=== PATIENT | female | born 1945 | race Caucasian/White ===

== ENCOUNTER 2020-08-29 13:12 | Emergency (ER) | payer MEDICARE, OTHER ==
[2020-08-29 15:11] VITALS: PULSE 80
--- NOTE | 2020-08-29 15:26 | EDM.PDOC ---
ED HPI GENERAL MEDICAL PROBLEM - General Chief Complaint: Cardiovascular Problem Stated Complaint: BLOOD PRESSURE ISSUES Time Seen by Provider: 08/29/20 15:05 Source of Information: Reports: Patient, Old Records History Limitations: Reports: No Limitations - History of Present Illness INITIAL COMMENTS - FREE TEXT/NARRATIVE: 75 yo female presents with light-headedness with standing for a couple days. Has noticed that her BP is sometimes good and sometimes high over this interval. No diarrhea, chest pain, vomiting, or fever. No recent med changes. She called the clinic today to get an appt and was told to go to the ER. No headache. Onset: Gradual Onset Date: 08/27/20 Duration: Day(s): (2), Waxing/Waning Location: Reports: Head Quality: Reports: Other (no pain) Severity: Moderate Improves with: Reports: None Worsens with: Reports: Other (? 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) - Related Data Allergies Allergy/AdvReac Type Severity Reaction Status Date / Time amoxicillin Allergy Cannot Verified 08/29/20 15:13 Remember diclofenac [From Voltaren] Allergy Hives Verified 08/29/20 15:13 lisinopril Allergy Hives Verified 08/29/20 15:13 metformin Allergy Diarrhea Verified 08/29/20 15:13 Home Meds: Home Meds Albuterol [Ventolin HFA] 2 puff INH Q4HR PRN 12/23/17 [History] Aspirin [Lui Chewable] 81 mg PO DAILY 12/23/17 [History] Levothyroxine 112 mcg PO DAILY 12/23/17 [History] Pioglitazone HCl 45 mg PO DAILY 12/23/17 [History] Simvastatin 20 mg PO BEDTIME 12/23/17 [History] SitaGLIPtin [Januvia] 100 mg PO DAILY 12/23/17 [History] diphenhydrAMINE HCL [Unisom] 50 mg PO BEDTIME PRN 12/23/17 [History] glipiZIDE [Glucotrol] 5 mg PO BID 12/23/17 [History] traZODone 50 mg PO BEDTIME 12/23/17 [History] ED ROS GENERAL - Review of Systems Review Of Systems: See Below Constitutional: Reports: No Symptoms HEENT: Reports: No Symptoms Respiratory: Reports: No Symptoms Cardiovascular: Reports: Lightheadedness. Denies: Chest Pain, Dyspnea on Exertion, Orthopnea, Palpitations Endocrine: Reports: No Symptoms GI/Abdominal: Reports: No Symptoms : Reports: No Symptoms Musculoskeletal: Reports: No Symptoms Skin: Reports: No Symptoms Neurological: Reports: No Symptoms ED EXAM, GENERAL - Physical Exam Exam: See Below Exam Limited By: No Limitations General Appearance: Alert, WD/WN, No Apparent Distress Eye Exam: Bilateral Eye: Normal Inspection Ears: Normal External Exam, Normal Canal, Hearing Grossly Normal, Normal TMs Ear Exam: Bilateral Ear: Auricle Normal, Canal Normal, TM normal Nose: Normal Inspection, No Blood Throat/Mouth: Normal Inspection, Normal Lips, Normal Oropharynx, Normal Voice, No Airway Compromise Head: Atraumatic, Normocephalic Neck: Normal Inspection, Non-Tender Respiratory/Chest: No Respiratory Distress, Lungs Clear, Normal Breath Sounds, No Accessory Muscle Use Cardiovascular: Regular Rate, Rhythm, No Edema GI/Abdominal: Normal Bowel Sounds, Soft, Non-Tender, No Distention. No: Distended Back Exam: Normal Inspection. No: CVA Tenderness (R), CVA Tenderness (L) Extremities: Normal Inspection, Normal Range of Motion, Non-Tender, No Pedal Edema Neurological: Alert, Oriented, CN II-XII Intact, Normal Cognition, No Motor/Sensory Deficits Psychiatric: Normal Affect, Normal Mood Skin Exam: Warm, Dry, Intact, Normal Color, No Rash Course - Vital Signs Last Recorded V/S: Last Vital Signs Temp 35.9 C L 08/29/20 15:16 Pulse 80 08/29/20 15:16 Resp 16 08/29/20 15:16 BP 124/62 08/29/20 17:03 Pulse Ox 96 08/29/20 15:16 Orthostatic Blood Pressure [ 105/76 Standing] Orthostatic Blood Pressure [ 130/69 Sitting] Orthostatic Blood Pressure [ 169/76 Supine] - Orders/Labs/Meds Orders: Active Orders 24 hr Category Date Time Status Orthostatic Vital Signs [RC] ASDIRECTED Care 08/29/20 15:21 Active CULTURE URINE [RM] Stat Lab 08/29/20 16:58 Received Labs: Laboratory Tests 08/29/20 08/29/20 Range/Units 15:36 16:33 Sodium 143 (140-148) mmol/L Potassium 4.4 (3.6-5.2) mmol/L Chloride 105 (100-108) mmol/L Carbon Dioxide 27 (21-32) mmol/L Anion Gap 10.6 (5.0-14.0) mmol/L BUN 26 H (7-18) mg/dL Creatinine 1.3 H (0.6-1.0) mg/dL Est Cr Clr Drug Dosing 33.13 mL/min Estimated GFR (MDRD) 40 L (>60) Glucose 165 H (74-106) mg/dL Calcium 10.3 H (8.5-10.1) mg/dL TSH, Ultra Sensitive 1.959 (0.358-3.740) uIU/mL Urine Color Yellow (YELLOW) Urine Appearance Clear (CLEAR) Urine pH 5.5 (5.0-8.0) Ur Specific [place] 1.025 (1.008-1.030) Urine Protein Negative (NEGATIVE) mg/dL Urine Glucose (UA) Negative (NEGATIVE) mg/dL Urine Ketones Negative (NEGATIVE) mg/dL Urine Occult Blood Trace-lysed H (NEGATIVE) Urine Nitrite Positive H (NEGATIVE) Urine Bilirubin Negative (NEGATIVE) Urine Urobilinogen 0.2 (0.2-1.0) EU/dL Ur Leukocyte Esterase Small H (NEGATIVE) Urine RBC 5-10 H (0-5) Urine WBC Semi-packed H (0-5) Ur Epithelial Cells Few Amorphous Sediment Not seen Urine Bacteria Many Urine Mucus Not seen Meds: Medications Discontinued Medications Generic Name Dose Route Start Last Admin Trade Name Dangelo PRN Reason Stop Dose Admin Cephalexin 500 mg 08/29/20 16:57 08/29/20 17:01 Cephalexin 250 Mg Cap PO 08/29/20 16:58 500 mg ONETIME ONE Administration Departure - Departure Time of Disposition: 17:25 Disposition: Home, Self-Care 01 Condition: Fair Clinical Impression: Labile blood pressure UTI (urinary tract infection) Qualifiers: Urinary tract infection type: acute cystitis Hematuria presence: without hematuria Qualified Code(s): N30.00 - Acute cystitis without hematuria Instructions: Urinary Tract Infection, Adult, [id number] Referrals: Greg Cabrera MD [Primary Care Provider] - Forms: ED Department Discharge Additional Instructions: Drink enough fluids so that your urine is light yellow in color. Take cephalexin 500 mg every 8 hrs until gone. Recheck in 3 days in the clinic to make sure you are improving and to discuss your BP situation. Sepsis Event Note (ED) - Evaluation Sepsis Screening Result: No Definite Risk - Focused Exam Vital Signs: Vital Signs Temp Pulse Resp BP Pulse Ox 08/29/20 17:03 124/62 08/29/20 15:16 35.9 C L 80 16 145/69 H 96 08/29/20 15:09 35.9 C L 80 16 145/69 H 96 - My Orders Last 24 Hours: My Active Orders 08/29/20 15:21 Orthostatic Vital Signs [RC] ASDIRECTED 08/29/20 16:58 CULTURE URINE [RM] Stat - Assessment/Plan Last 24 Hours: My Active Orders 08/29/20 15:21 Orthostatic Vital Signs [RC] ASDIRECTED 08/29/20 16:58 CULTURE URINE [RM] Stat
[2020-08-29] MEDS ORDERED: Cephalexin 250 MG Cap PO ONE (16:57)
[2020-08-29 17:03] VITALS: BP 124/62
== END 2020-08-29 17:29 | disposition home or self-care (01) ==
LOC: JP.ED 13:12
DX: R09.89 Other specified symptoms and signs involving the circulatory and respiratory systems (principal); N30.00 Acute cystitis without hematuria; Z88.0 Allergy status to penicillin; Z88.6 Allergy status to analgesic agent; Z88.8 Allergy status to other drugs, medicaments and biological substances; Z79.82 Long term (current) use of aspirin; Z79.899 Other long term (current) drug therapy
CPT/HCPCS: 36415; 80048; 81001; 84443; 87086; 87088; 87186; 99284; A9270; 99283

== ENCOUNTER 2020-10-22 15:37 | Emergency (ER) | payer MEDICARE, OTHER ==
--- NOTE | 2020-10-22 20:04 | EDM.PDOC ---
ED HPI GENERAL MEDICAL PROBLEM - General Chief Complaint: Abdominal Pain Stated Complaint: PAIN FROM HIP TO ABDOMEN-HAVENT ATE SINCE FRI Time Seen by Provider: 10/22/20 19:45 Source of Information: Reports: Patient, Family History Limitations: Reports: No Limitations - History of Present Illness INITIAL COMMENTS - FREE TEXT/NARRATIVE: 75-year-old female with abdominal pain for the past 3 days, especially the right upper quadrant. Malaise and nausea, no significant emesis. She has not eaten much for the last 3 days because it makes things worse, no fevers or chills. No history of abdominal surgeries in the past. She did have a fall 2 nights ago where she hit the left side of her abdomen but she was already having the symptoms and did not think she hurt herself when she fell. No diarrhea, denies constipation. No chest symptoms such as shortness of breath or chest pain, no palpitations. Onset: Gradual Duration: Day(s): (4 days) Location: Reports: Abdomen (Right upper quadrant) Worsens with: Reports: Eating Associated Symptoms: Reports: Loss of Appetite, Malaise, Nausea/Vomiting. Denies: Chest Pain, Cough, Fever/Chills, Headaches, Shortness of Breath Right Abdomen Pain Score (Numeric/FACES): 7 - Related Data Allergies Allergy/AdvReac Type Severity Reaction Status Date / Time amoxicillin Allergy Cannot Verified 10/22/20 19:33 Remember diclofenac [From Voltaren] Allergy Hives Verified 10/22/20 19:33 lisinopril Allergy Hives Verified 10/22/20 19:33 metformin Allergy Diarrhea Verified 10/22/20 19:33 Home Meds: Home Meds Albuterol [Ventolin HFA] 2 puff INH Q4HR PRN 12/23/17 [History] Aspirin [Lui Chewable] 81 mg PO DAILY 12/23/17 [History] Levothyroxine 112 mcg PO DAILY 12/23/17 [History] Pioglitazone HCl 45 mg PO DAILY 12/23/17 [History] Simvastatin 20 mg PO BEDTIME 12/23/17 [History] SitaGLIPtin [Januvia] 100 mg PO DAILY 12/23/17 [History] diphenhydrAMINE HCL [Unisom] 50 mg PO BEDTIME PRN 12/23/17 [History] glipiZIDE [Glucotrol] 5 mg PO BID 12/23/17 [History] traZODone 50 mg PO BEDTIME 12/23/17 [History] cephALEXin [Cephalexin] 500 mg PO Q8H #14 capsule 08/29/20 [Rx] Past Medical History HEENT History: Reports: Cataract, Impaired Vision Cardiovascular History: Reports: High Cholesterol, Hypertension Respiratory History: Reports: Asthma [employer]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: Musculoskeletal History: Reports: Arthritis Endocrine/Metabolic History: Reports: Hypothyroidism, Obesity/BMI 30+ - Past Surgical History HEENT Surgical History: Reports: None Cardiovascular Surgical History: Reports: None Respiratory Surgical History: Reports: None Endocrine Surgical History: Reports: None Musculoskeletal Surgical History: Reports: None Dermatological Surgical History: Reports: None Social & Family History - Tobacco Use Tobacco Use Status *Q: Never Tobacco User - Caffeine Use Caffeine Use: Reports: Soda - Recreational Drug Use Recreational Drug Use: No ED ROS GENERAL - Review of Systems Review Of Systems: See Below Constitutional: Reports: Malaise, Decreased Appetite. Denies: Fever, Chills HEENT: Reports: No Symptoms Respiratory: Denies: Shortness of Breath, Cough Cardiovascular: Denies: Chest Pain, Palpitations GI/Abdominal: Reports: Abdominal Pain, Diarrhea (Patient has had two or 3 days of watery diarrhea), Decreased Appetite, Nausea, Vomiting. Denies: Constipation, Distension, Hematemesis, Hematochezia : Reports: No Symptoms Musculoskeletal: Reports: Back Pain (Chronic back pain) Skin: Reports: No Symptoms Neurological: Reports: No Symptoms Psychiatric: Reports: No Symptoms ED EXAM, GI/ABD - Physical Exam Exam: See Below Exam Limited By: No Limitations General Appearance: Alert, No Apparent Distress Eyes: Bilateral: Normal Appearance (No jaundice, good hydration) Head: Atraumatic Respiratory/Chest: No Respiratory Distress, Lungs Clear Cardiovascular: Regular Rate, Rhythm. No: Tachycardia GI/Abdominal Exam: Normal Bowel Sounds, Tender (Fairly tender across the upper abdomen, especially the right side) Extremities: Normal Inspection Neurological: Alert, Oriented Skin Exam: Warm, Dry Course - Vital Signs Last Recorded V/S: Last Vital Signs Temp 97.7 F 10/22/20 19:36 Pulse 57 L 10/22/20 22:14 Resp 26 H 10/22/20 19:36 BP 182/61 H 10/22/20 22:14 Pulse Ox 93 L 10/22/20 22:14 - Orders/Labs/Meds Orders: Active Orders 24 hr Category Date Time Status Ang Chest [CT] Stat Exams 10/22/20 21:54 Taken BABESIA MICROTI ANTIBODY PANEL Urgent Lab 10/22/20 23:36 Received HUMAN GRANULOCYTIC SUMIT-HGE Urgent Lab 10/22/20 23:36 Received LYME, TOTAL AB TEST/REFLEX Urgent Lab 10/22/20 23:36 Received Labs: Laboratory Tests 10/22/20 10/22/20 10/22/20 Range/Units 20:15 20:15 20:15 WBC 1.9 L (4.5-11.0) K/uL RBC 5.37 (3.30-5.50) M/uL Hgb 15.1 H (12.0-15.0) g/dL Hct 46.2 (36.0-48.0) % MCV 86 (80-98) fL MCH 28 (27-31) pg MCHC 33 (32-36) % Plt Count 80 L (150-400) K/uL Add Manual Diff Yes Neutrophils % (Manual) 52 (36-66) % Band Neutrophils % 13 H (5-11) % Lymphocytes % (Manual) 26 (24-44) % Monocytes % (Manual) 9 H (2-6) % Atypical Lymphocytes Few Polychromasia Sodium 134 L (140-148) mmol/L Potassium 3.9 (3.6-5.2) mmol/L Chloride 95 L (100-108) mmol/L Carbon Dioxide 26 (21-32) mmol/L Anion Gap 16.9 H (5.0-14.0) mmol/L BUN 24 H (7-18) mg/dL Creatinine 1.3 H (0.6-1.0) mg/dL Est Cr Clr Drug Dosing 33.13 mL/min Estimated GFR (MDRD) 40 L (>60) Glucose 229 H (74-106) mg/dL Lactic Acid 1.5 (0.4-2.0) mmol/L Calcium 8.7 D (8.5-10.1) mg/dL Total Bilirubin 0.9 (0.2-1.0) mg/dL AST 50 H (15-37) U/L ALT 44 (12-78) U/L Alkaline Phosphatase 64 (46-116) U/L Total Protein 6.6 (6.4-8.2) g/dL Albumin 3.1 L (3.4-5.0) g/dL Globulin 3.5 (2.3-3.5) g/dL Albumin/Globulin Ratio 0.9 L (1.2-2.2) Lipase 55 L (73-393) U/L Urine Color (YELLOW) Urine Appearance (CLEAR) Urine pH (5.0-8.0) Ur Specific [place] (1.008-1.030) Urine Protein (NEGATIVE) mg/dL Urine Glucose (UA) (NEGATIVE) mg/dL Urine Ketones (NEGATIVE) mg/dL Urine Occult Blood (NEGATIVE) Urine Nitrite (NEGATIVE) Urine Bilirubin (NEGATIVE) Urine Urobilinogen (0.2-1.0) EU/dL Ur Leukocyte Esterase (NEGATIVE) Urine RBC (0-5) Urine WBC (0-5) Ur Epithelial Cells Amorphous Sediment Urine Bacteria Urine Mucus Urine Other 10/22/20 Range/Units 21:25 WBC (4.5-11.0) K/uL RBC (3.30-5.50) M/uL Hgb (12.0-15.0) g/dL Hct (36.0-48.0) % MCV (80-98) fL MCH (27-31) pg MCHC (32-36) % Plt Count (150-400) K/uL Add Manual Diff Neutrophils % (Manual) (36-66) % Band Neutrophils % (5-11) % Lymphocytes % (Manual) (24-44) % Monocytes % (Manual) (2-6) % Atypical Lymphocytes Polychromasia Sodium (140-148) mmol/L Potassium (3.6-5.2) mmol/L Chloride (100-108) mmol/L Carbon Dioxide (21-32) mmol/L Anion Gap (5.0-14.0) mmol/L BUN (7-18) mg/dL Creatinine (0.6-1.0) mg/dL Est Cr Clr Drug Dosing mL/min Estimated GFR (MDRD) (>60) Glucose (74-106) mg/dL Lactic Acid (0.4-2.0) mmol/L Calcium (8.5-10.1) mg/dL Total Bilirubin (0.2-1.0) mg/dL AST (15-37) U/L ALT (12-78) U/L Alkaline Phosphatase (46-116) U/L Total Protein (6.4-8.2) g/dL Albumin (3.4-5.0) g/dL Globulin (2.3-3.5) g/dL Albumin/Globulin Ratio (1.2-2.2) Lipase (73-393) U/L Urine Color Yellow (YELLOW) Urine Appearance Cloudy A (CLEAR) Urine pH 5.5 (5.0-8.0) Ur Specific [place] >= 1.030 (1.008-1.030) Urine Protein 100 H (NEGATIVE) mg/dL Urine Glucose (UA) 250 H (NEGATIVE) mg/dL Urine Ketones Negative (NEGATIVE) mg/dL Urine Occult Blood Small H (NEGATIVE) Urine Nitrite Negative (NEGATIVE) Urine Bilirubin Small H (NEGATIVE) Urine Urobilinogen 1.0 (0.2-1.0) EU/dL Ur Leukocyte Esterase Negative (NEGATIVE) Urine RBC 0-5 (0-5) Urine WBC 0-5 (0-5) Ur Epithelial Cells Few Amorphous Sediment Numerous Urine Bacteria Few Urine Mucus Few Urine Other See note Meds: Medications Discontinued Medications Generic Name Dose Route Start Last Admin Trade Name Freq PRN Reason Stop Dose Admin Hydromorphone HCl 0.5 mg 10/22/20 22:23 10/22/20 22:26 Hydromorphone 0.5 Mg/0.5 Ml Syringe IVPUSH 10/22/20 22:24 0.5 mg ONETIME ONE Administration Sodium Chloride 1,000 mls @ 999 mls/hr 10/22/20 21:00 10/22/20 21:47 Normal Saline IV 999 mls/hr ASDIRECTED MARIA ELENA Administration Sodium Chloride 100 mls @ 4 mls/sec 10/22/20 21:30 10/22/20 21:35 Normal Saline IV 4 mls/sec ASDIRECTED MARIA ELENA Administration Iopamidol 100 ml 10/22/20 21:30 10/22/20 21:35 Iopamidol 755 Mg/Ml 100 Ml Bottle IV 100 ml . DIRECTED MARIA ELENA Administration - Re-Assessments/Exams Free Text/Narrative Re-Assessment/Exam: 10/22/20 20:04 Bedside ultrasound was very difficult due to a large amount of bowel layer, but the right upper quadrant was visualized fairly well, there is no free fluid but the gallbladder looks distended but the wall looks borderline, no stones. CBC, CMP, lipase and lactic acid were obtained. Patient declined any pain medication at this time, she is actually fairly comfortable when lying still. 10/23/20 01:51 White count was low at 1900, platelets also somewhat low at 80,000. GFR is 40 creatinine 1.4. She was bolused with 1 L of normal saline and a CT of the abdomen and pelvis was obtained with contrast. This did confirm an enlarged gallbladder but no wall thickening, stranding, and no other abdominal abnormality. A tick panel was added and the patient was given 0.5 mg of IV Dilaudid. She responded very well to that, she was discharged with additional doses of hydrocodone and started on doxycycline pending tick panel. I do think she should recheck with her primary provider in the next few days to discuss a HIDA scan if not improving. She can always return to the emergency room if worsening. Departure - Departure Time of Disposition: 00:08 Disposition: Home, Self-Care 01 Clinical Impression: Abdominal pain Qualifiers: Abdominal location: right upper quadrant Qualified Code(s): R10.11 - Right up per quadrant pain - Discharge Information Instructions: Abdominal Pain, Adult, [id number] Referrals: Greg Cabrera MD [Primary Care Provider] - Forms: ED Department Discharge Care Plan Goals: Use stronger pain medication if helpful, and start antibiotic twice daily with your first dose tonight. Increase diet and activity as tolerated and talk with Dr. Cabrera about rechecking your abdominal pain and scheduling a HIDA scan if not improving. Return to the emergency room if not improving or worsening and unable to get into the clinic for recheck. Sepsis Event Note (ED) - Evaluation Sepsis Screening Result: No Definite Risk - Focused Exam Vital Signs: Vital Signs Temp Pulse Resp BP Pulse Ox 10/22/20 22:14 57 L 182/61 H 93 L 10/22/20 21:45 63 182/136 H 95 10/22/20 20:45 60 137/77 91 L 10/22/20 20:32 65 139/83 92 L 10/22/20 19:44 65 140/76 93 L 10/22/20 19:36 97.7 F 62 26 H 161/70 H 94 L 10/22/20 19:28 97.7 F 62 26 H 161/70 H 94 L - My Orders Last 24 Hours: My Active Orders 10/22/20 21:54 Ang Chest [CT] Stat 10/22/20 23:36 BABESIA MICROTI ANTIBODY PANEL Urgent HUMAN GRANULOCYTIC SUMIT-HGE Urgent LYME, TOTAL AB TEST/REFLEX Urgent - Assessment/Plan Last 24 Hours: My Active Orders 10/22/20 21:54 Ang Chest [CT] Stat 10/22/20 23:36 BABESIA MICROTI ANTIBODY PANEL Urgent HUMAN GRANULOCYTIC SUMIT-HGE Urgent LYME, TOTAL AB TEST/REFLEX Urgent
[2020-10-22] MEDS ORDERED: Sodium Chloride 0.9% 1,000 ML IV SCH (21:00)
[2020-10-22] MEDS ORDERED: Iopamidol 755 Mg/ML 100 ML Bottle IV SCH (21:30)
[2020-10-22] MEDS ORDERED: Sodium Chloride 0.9% 100 ML IV SCH (21:30)
[2020-10-22] MEDS ORDERED: HYDROmorphone 1 MG/ML Syringe IM ONE (22:07)
[2020-10-22] MEDS ORDERED: HYDROmorphone 0.5 MG/0.5 ML Syringe IVPUSH ONE (22:23)
[2020-10-22 22:41] VITALS: BP 182/61; PULSE 57
--- NOTE | 2020-10-22 23:04 | CRLCT ---
For Patients: As a result of the 21st Century Cures Act, medical imaging exams and procedure reports are released immediately into your electronic medical record. You may view this report before your referring provider. If you have questions, please contact your health care provider. Indication: Abdominal pain radiating down to the hip Technique: Contrast enhanced imaging through the chest, abdomen, and pelvis acquired in the angiographic phase of enhancement. 100 mL Isovue 370 contrast agent was administered. Sagittal and coronal reconstructions are provided. Comparison: None Findings: Aorta: Motion artifact somewhat limits assessment the aortic root. There is normal caliber of the thoracic aorta. There is no evidence of aortic dissection. The great arch branch vessel origins are patent. There is mild scattered coronary artery calcification. The abdominal aorta is normal in caliber. The celiac axis, superior mesenteric artery, renal arteries, inferior mesenteric artery, and bilateral iliac arteries are patent. Scattered abdominal atherosclerosis disease is noted, with irregularity and stenosis of the proximal common hepatic artery and inferior pancreaticoduodenal artery. Note is made of moderate stenosis of the proximal celiac trunk with apparent compression by the diaphragmatic crura, suggesting median arcuate ligament syndrome. Chest: There is adequate opacification of the visualized pulmonary arterial tree without evidence of thromboembolism. The lung apices are incompletely included. The main pulmonary artery mildly enlarged. The heart is normal in size. There is no pericardial effusion. No lymphadenopathy is appreciated in the visualized mediastinum. There is scattered subpleural atelectasis and/or scarring in the visualized lungs bilaterally. Abdomen/pelvis: The gallbladder is distended, without appreciable wall thickening. There is no significant abnormality relating to the liver, spleen, pancreas, adrenal glands, or kidneys. The stomach and small bowel are unremarkable. There is no colonic wall thickening. The appendix is non-inflamed. There is no free intraperitoneal fluid or air. No lymphadenopathy is identified in the abdomen or pelvis. There is a very small fat containing umbilical hernia. There are multilevel degenerative changes of the lumbar spine. Impression: 1. No evidence of aortic dissection or aortic aneurysm. No evidence of large abdominal vessel occlusion. Scattered atherosclerosis with irregularity and multifocal stenosis of the proximal common hepatic artery and of the inferior pancreaticoduodenal artery. 2. Moderate stenosis of the proximal celiac trunk with apparent compression by the diaphragmatic crura, suggesting median arcuate ligament syndrome. Correlate clinically. 3. Otherwise no acute abnormality. Please note that all CT scans at this facility use dose modulation, iterative reconstruction, and/or weight-based dosing when appropriate to reduce radiation dose to as low as reasonably achievable. Dictated by Teja Wyatt MD @ 10/22/2020 11:02:[address] Teja Wyatt @ Oct 22 2020 11:02PM
--- NOTE | 2020-10-23 08:00 | CRLCT ---
Final Report: Indication: Abdominal pain radiating down to the hip Technique: Contrast enhanced imaging through the chest, abdomen, and pelvis acquired in the angiographic phase of enhancement. 100 mL Isovue 370 contrast agent was administered. Sagittal and coronal reconstructions are provided. Comparison: None Findings: Aorta: Motion artifact somewhat limits assessment the aortic root. There is normal caliber of the thoracic aorta. There is no evidence of aortic dissection. The great arch branch vessel origins are patent. There is mild scattered coronary artery calcification. The abdominal aorta is normal in caliber. The celiac axis, superior mesenteric artery, renal arteries, inferior mesenteric artery, and bilateral iliac arteries are patent. Scattered abdominal atherosclerosis disease is noted, with irregularity and stenosis of the proximal common hepatic artery and inferior pancreaticoduodenal artery. Note is made of moderate stenosis of the proximal celiac trunk with apparent compression by the diaphragmatic crura, suggesting median arcuate ligament syndrome. Chest: There is adequate opacification of the visualized pulmonary arterial tree without evidence of thromboembolism. The lung apices are incompletely included. The main pulmonary artery mildly enlarged. The heart is normal in size. There is no pericardial effusion. No lymphadenopathy is appreciated in the visualized mediastinum. There is scattered subpleural atelectasis and/or scarring in the visualized lungs bilaterally. Abdomen/pelvis: The gallbladder is distended, without appreciable wall thickening. There is no significant abnormality relating to the liver, spleen, pancreas, adrenal glands, or kidneys. The stomach and small bowel are unremarkable. There is no colonic wall thickening. The appendix is non-inflamed. There is no free intraperitoneal fluid or air. No lymphadenopathy is identified in the abdomen or pelvis. There is a very small fat containing umbilical hernia. There are multilevel degenerative changes of the lumbar spine. Impression: 1. No evidence of aortic dissection or aortic aneurysm. No evidence of large abdominal vessel occlusion. Scattered atherosclerosis with irregularity and multifocal stenosis of the proximal common hepatic artery and of the inferior pancreaticoduodenal artery. 2. Moderate stenosis of the proximal celiac trunk with apparent compression by the diaphragmatic crura, suggesting median arcuate ligament syndrome. Correlate clinically. 3. Otherwise no acute abnormality. Please note that all CT scans at this facility use dose modulation, iterative reconstruction, and/or weight-based dosing when appropriate to reduce radiation dose to as low as reasonably achievable. Dictated by Teja Wyatt MD @ 10/22/2020 11:02:34 PM (Electronic Signature) MTDD
[2020-10-25 09:15] LABS: LYME IGG/IGM AB <0.91 ISR (0.00-0.90)
[2020-10-26 18:11] LABS: BABESIA MICROTI IGG <1:10 (Neg:<1:10); BABESIA MICROTI IGM <1:10 (Neg:<1:10)
== END 2020-10-23 00:08 | disposition home or self-care (01) ==
LOC: JP.ED 15:37
DX: R10.11 Right upper quadrant pain (principal); E78.00 Pure hypercholesterolemia, unspecified; I10 Essential (primary) hypertension; E03.9 Hypothyroidism, unspecified; E66.9 Obesity, unspecified; Z68.30 Body mass index [BMI] 30.0-30.9, adult; Z79.82 Long term (current) use of aspirin; Z88.8 Allergy status to other drugs, medicaments and biological substances; Z88.0 Allergy status to penicillin
CPT/HCPCS: 36415; 71275; 74174; 80053; 81001; 83605; 83690; 85025; 86618; 86666; 86753; 96374; 99284; J1170; J7030; Q9967

== ENCOUNTER 2020-10-23 11:48 | Inpatient (IN) | payer MEDICARE, OTHER ==
[2020-10-23] MEDS ORDERED: Piperacillin/Tazobactam 3.375 GM in Sodium Chloride 0.9% 50 ML IV SCH (12:30)
[2020-10-23] MEDS ORDERED: Sodium Chloride 0.9% 10 ML Syringe FLUSH PRN (12:34)
[2020-10-23] MEDS ORDERED: Ondansetron 4 MG/2 ML SDV IV PRN (12:36)
[2020-10-23] MEDS ORDERED: LORazepam 2 MG/ML SDV IVPUSH PRN (12:36)
[2020-10-23] MEDS ORDERED: Albuterol 0.083% 2.5 MG/3 ML Neb Soln NEB PRN (12:36)
[2020-10-23] MEDS ORDERED: Ondansetron 4 MG Tab.DIS PO PRN (12:36)
[2020-10-23] MEDS ORDERED: Acetaminophen 325 MG Tab PO PRN (12:36)
[2020-10-23] MEDS ORDERED: Magnesium Hydroxide 400 MG/5 ML Susp 30 ML Cup PO PRN (12:36)
[2020-10-23] MEDS: HYDROmorphone 0.5 MG/0.5 ML Syringe IVPUSH PRN (12:42)
--- NOTE | 2020-10-23 12:44 | PCM.HP.2 ---
H&P History of Present Illness - General Date of Service: 10/23/20 Admit Problem/Dx: Admission Diagnosis/Problem Admission Diagnosis/Problem Cholecystitis Source of Information: Patient, Family, Provider History Limitations: Reports: No Limitations - History of Present Illness Initial Comments - Free Text/Narative: CC: It hurts HPI: Eloise presents to the hospital as a direct admission from the clinic. She reports 4 days of progressive right upper quadrant abdominal pain with associated nausea. She describes achy pain that comes and goes in waves. She has not identified any obvious triggers. She has been taking hydrocodone for the past 12 hours with minimal improvement. The pain radiates into the right flank area. There is no preceding injury. She has had a very poor appetite for the last 4 days had minimal intake of food and water. Subjective fevers but no measured temperatures. No shaking chills. Nausea but no vomiting. She had diarrhea for a few days preceding the onset of the pain. No obvious sick contacts or travel. She has had her Covid vaccinations. She was seen in the emergency room yesterday and found to have a distended gallbladder but no pericholecystic fluid. Laboratory studies for hepatic and gallbladder abnormalities were unremarkable. She did have a low white blood cell count at low platelets which raise some concern for tickborne disease. She was started on doxycycline. She did feel little better with symptomatic management in the emergency room and went home last night. Since then she has had progressive pain and worsening nausea. She did follow-up with her clinic provider and was sent for direct admission. She has not previously had any surgeries or exposure to anesthesia. Right Upper Abdomen Pain Score (Numeric/FACES): 8 - Related Data Allergies/Adverse Reactions: Allergies Allergy/AdvReac Type Severity Reaction Status Date / Time diclofenac [From Voltaren] Allergy Hives Verified 10/23/20 12:11 lisinopril Allergy Hives Verified 10/23/20 12:11 amoxicillin AdvReac Diarrhea Verified 10/23/20 12:33 metformin AdvReac Diarrhea Verified 10/23/20 12:33 Home Medications: Home Meds Albuterol [Ventolin HFA] 2 puff INH Q4HR PRN 12/23/17 [History] Aspirin [Lui Chewable] 81 mg PO DAILY 12/23/17 [History] Levothyroxine 112 mcg PO DAILY 12/23/17 [History] Pioglitazone HCl 45 mg PO DAILY 12/23/17 [History] Simvastatin 20 mg PO BEDTIME 12/23/17 [History] SitaGLIPtin [Januvia] 100 mg PO DAILY 12/23/17 [History] diphenhydrAMINE HCL [Unisom] 50 mg PO BEDTIME PRN 12/23/17 [History] glipiZIDE [Glucotrol] 5 mg PO BID 12/23/17 [History] traZODone 50 mg PO BEDTIME 12/23/17 [History] cephALEXin [Cephalexin] 500 mg PO Q8H #14 capsule 08/29/20 [Rx] Past Medical History HEENT History: Reports: Cataract, Impaired Vision Cardiovascular History: Reports: High Cholesterol, Hypertension Respiratory History: Reports: Asthma [employer]ING M[employer]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 [employer] History: Reports: Musculoskeletal History: Reports: Arthritis Endocrine/Metabolic History: Reports: Hypothyroidism, Obesity/BMI 30+ - Past Surgical History HEENT Surgical History: Reports: None Cardiovascular Surgical History: Reports: None Respiratory Surgical History: Reports: None Endocrine Surgical History: Reports: None Musculoskeletal Surgical History: Reports: None Dermatological Surgical History: Reports: None Social & Family History - Family History GI: Denies: Cholelithiasis - Tobacco Use Tobacco Use Status *Q: Never Tobacco User Tobacco Use Within Last Twelve Months: No - Caffeine Use Caffeine Use: Reports: Soda - Alcohol Use Alcohol Use History: No Alcohol Use in Last Twelve Months: No H&P Review of Systems - Review of Systems: Review Of Systems: See Below Free Text/Narrative: A complete 12 point review of systems was obtained. Pertinent positives and negatives are noted in the history of present illness. All other systems were reviewed and were negative except as noted. Exam - Exam Exam: See Below - Vital Signs Vital Signs: Last Vital Signs Temp 36.6 C 10/23/20 12:39 Pulse 57 L 10/23/20 12:39 Resp 18 10/23/20 12:39 BP 175/66 H 10/23/20 12:39 Pulse Ox 94 L 10/23/20 12:39 - Exam Quality Assessment: No: Supplemental Oxygen General: Alert, Oriented, Cooperative, Mild Distress HEENT: Conjunctiva Clear. No: Mucosa Moist & [place] (dry), Scleral Icterus Neck: Supple, Trachea Midline. No: Lymphadenopathy Lungs: Clear to Auscultation, Normal Respiratory Effort Cardiovascular: Regular Rate, Regular Rhythm GI/Abdominal Exam: Soft, No Distention, Guarding, Tender (mild left side, moderate RUQ). No: Normal Bowel Sounds (hypoactive) Extremities: No Pedal Edema. No: Increased Warmth Peripheral Pulses: 2+: Dorsalis Pedis (L), Dorsalis Pedis (R) Skin: Warm, Dry Neuro Extensive - Mental Status: Alert, Oriented x3, Nl Response to Commands Neuro Extensive - Motor, Sensory, Reflexes: No: Dysarthria, Abnormal Motor, Tremor Psychiatric: Alert, Normal Affect - Patient Data Imaging Impressions Last 24 hrs: CT scan of the abdomen and pelvis with IV contrast-images were personally reviewed-I did personally reviewed the images as well as the radiology report from the CT scan obtained in the emergency room yesterday. This was a CT angiogram of the abdomen. There were no significant abnormalities noted with the vessels including the aorta. An enlarged gallbladder without pericholecystic fluid or wall thickening was noted. No other acute findings were identified. Sepsis Event Note - Focused Exam Vital Signs: Vital Signs Temp Pulse Resp BP Pulse Ox 10/23/20 12:39 36.6 C 57 L 18 175/66 H 94 L *Q Meaningful Use (ADM) - VTE *Q VTE Pharmacological Contraindications *Q: Patient Scheduled Surgery - VTE Risk Assess *Q Each Risk Factor Represents 1 Point: Obesity ( BMI > 25 kg/m2), Abnormal Pulmonary Function (COPD) Total Score 1 Point Risk Factors: 2 Each Risk Factor Represents 2 Points: Laparoscopic surgery greater than 45 minutes Total Score 2 Point Risk Factors: 2 Each Risk Factor Represents 3 Points: Age 75 Years or Greater Total Score 3 Point Risk Factors: 3 Each Risk Factor Represents 5 Points: None Total Score 5 Point Risk Factors: 0 Venous Thromboembolism Risk Factor Score *Q: 7 - Problem List (1) Acute cholecystitis without calculus SNOMED Code(s): 65200290 ICD Code: K81.0 - ACUTE CHOLECYSTITIS Status: Acute Current Visit: Yes (2) Leukopenia SNOMED Code(s): 23414109, 224640294 ICD Code: D72.819 - DECREASED WHITE BLOOD CELL COUNT, UNSPECIFIED Status: Acute Current Visit: Yes Qualifiers: Leukopenia type: unspecified Qualified Code(s): D72.819 - Decreased white blood cell count, unspecified (3) Thrombocytopenia SNOMED Code(s): 292772443 ICD Code: D69.6 - THROMBOCYTOPENIA, UNSPECIFIED Status: Acute Current Visit: Yes (4) Type 2 diabetes mellitus SNOMED Code(s): 27915782 ICD Code: E11.9 - TYPE 2 DIABETES MELLITUS WITHOUT COMPLICATIONS Status: Chronic Current Visit: Yes Qualifiers: Diabetes mellitus shelter insulin use: without shelter use Diabetes mellitus complication status: without complication Qualified Code(s): E11.9 - Type 2 diabetes mellitus without complications (5) COPD (chronic obstructive pulmonary disease) SNOMED Code(s): 65154302 ICD Code: J44.9 - CHRONIC OBSTRUCTIVE PULMONARY DISEASE, UNSPECIFIED Status: Chronic Current Visit: Yes Qualifiers: COPD type: unspecified COPD Qualified Code(s): J44.9 - Chronic obstructive pulmonary disease, unspecified Problem List Initiated/Reviewed/Updated: Yes Orders Last 24hrs: Active Orders 24 hr Category Date Time Status Patient Status [ADT] Routine ADT 10/23/20 12:36 Ordered Antiembolic Devices [RC] .Routine Care 10/23/20 12:36 Ordered Intake and Output [RC] QSHIFT Care 10/23/20 12:36 Ordered Notify Provider Consults [RC] ASDIRECTED Care 10/23/20 12:39 Ordered Notify Provider Vital Signs [RC] ASDIRECTED Care 10/23/20 12:36 Ordered Oxygen Therapy [RC] PRN Care 10/23/20 12:36 Ordered Peripheral IV Care [RC] . DIRECTED Care 10/23/20 12:34 Ordered RT Aerosol Therapy [RC] ASDIRECTED Care 10/23/20 12:38 Ordered Up With Assistance [RC] ASDIRECTED Care 10/23/20 12:36 Ordered VTE/DVT Education [RC] Per Unit Routine Care 10/23/20 12:36 Ordered Vital Signs [RC] Q4H Care 10/23/20 12:36 Ordered Consult to Physician [CONS] Routine Cons 10/23/20 12:36 Ordered Nothing per Oral Now Diet [DIET] Diet 10/23/20 Dinner Ordered C-REACTIVE PROTEIN [CHEM] Urgent Lab 10/23/20 12:36 Ordered CBC WITH AUTO DIFF [HEME] Urgent Lab 10/23/20 12:36 Ordered COMPREHENSIVE METABOLIC PN,CMP [CHEM] Urgent Lab 10/23/20 12:36 Ordered GLUCOSE POC LAB TO COLLECT JPM [POC] QIDACANDBED Lab 10/23/20 16:30 Ordered GLUCOSE POC LAB TO COLLECT JPM [POC] QIDACANDBED Lab 10/23/20 21:00 Ordered GLUCOSE POC LAB TO COLLECT JPM [POC] QIDACANDBED Lab 10/24/20 07:30 Ordered GLUCOSE POC LAB TO COLLECT JPM [POC] QIDACANDBED Lab 10/24/20 11:30 Ordered GLUCOSE POC LAB TO COLLECT JPM [POC] QIDACANDBED Lab 10/24/20 16:30 Ordered GLUCOSE POC LAB TO COLLECT JPM [POC] QIDACANDBED Lab 10/24/20 21:00 Ordered GLUCOSE POC LAB TO COLLECT JPM [POC] QIDACANDBED Lab 10/25/20 07:30 Ordered GLUCOSE POC LAB TO COLLECT JPM [POC] QIDACANDBED Lab 10/25/20 11:30 Ordered GLUCOSE POC LAB TO COLLECT JPM [POC] QIDACANDBED Lab 10/25/20 16:30 Ordered GLUCOSE POC LAB TO COLLECT JPM [POC] QIDACANDBED Lab 10/25/20 21:00 Ordered GLUCOSE POC LAB TO COLLECT JPM [POC] QIDACANDBED Lab 10/26/20 07:30 Ordered GLUCOSE POC LAB TO COLLECT JPM [POC] QIDACANDBED Lab 10/26/20 11:30 Ordered GLUCOSE POC LAB TO COLLECT JPM [POC] QIDACANDBED Lab 10/26/20 16:30 Ordered GLUCOSE POC LAB TO COLLECT JPM [POC] QIDACANDBED Lab 10/26/20 21:00 Ordered GLUCOSE POC LAB TO COLLECT JPM [POC] QIDACANDBED Lab 10/27/20 07:30 Ordered GLUCOSE POC LAB TO COLLECT JPM [POC] QIDACANDBED Lab 10/27/20 11:30 Ordered GLUCOSE POC LAB TO COLLECT JPM [POC] QIDACANDBED Lab 10/27/20 16:30 Ordered GLUCOSE POC LAB TO COLLECT JPM [POC] QIDACANDBED Lab 10/27/20 21:00 Ordered GLUCOSE POC LAB TO COLLECT JPM [POC] QIDACANDBED Lab 10/28/20 07:30 Ordered GLUCOSE POC LAB TO COLLECT JPM [POC] QIDACANDBED Lab 10/28/20 11:30 Ordered GLUCOSE POC LAB TO COLLECT JPM [POC] QIDACANDBED Lab 10/28/20 16:30 Ordered GLUCOSE POC LAB TO COLLECT JPM [POC] QIDACANDBED Lab 10/28/20 21:00 Ordered LACTIC ACID [CHEM] Urgent Lab 10/23/20 12:36 Ordered Acetaminophen [TylenoL] Med 10/23/20 12:36 Ordered 650 mg PO Q4H PRN Albuterol [Proventil Neb Soln] Med 10/23/20 12:36 Ordered 2.5 mg NEB Q4H PRN Aspirin Med 10/24/20 09:00 Ordered 81 mg PO DAILY Docusate Sodium/Sennosides [Senna Plus] Med 10/23/20 12:36 Ordered 1 tab PO BID PRN HYDROmorphone [Dilaudid] Med 10/23/20 12:33 Ordered 0.5 mg IVPUSH Q2H PRN LORazepam [Ativan] Med 10/23/20 12:36 Ordered 0.5 mg IVPUSH Q4H PRN Lactated Ringers @ 125 MLS/HR(1000ml) Med 10/23/20 12:45 Ordered Lactated Ringers [Ringers, Lactated] 1,000 ml IV ASDIRECTED Lactated Ringers [Ringers, Lactated] 500 ml Med 10/23/20 12:45 Ordered IV ASDIRECTED Lactobacillus Rhamnosus GG [Culturelle] Med 10/23/20 21:00 Ordered 1 cap PO BID Levothyroxine Med 10/24/20 09:00 Ordered 112 mcg PO DAILY Magnesium Hydroxide [Milk of Magnesia] Med 10/23/20 12:36 Ordered 30 ml PO Q12H PRN Ondansetron [Zofran ODT] Med 10/23/20 12:36 Ordered 4 mg PO Q6H PRN Ondansetron [Zofran] Med 10/23/20 12:36 Ordered 4 mg IV Q6H PRN Pioglitazone HCl [Pioglitazone HCl] Med 10/24/20 09:00 Ordered 45 mg PO DAILY Piperacillin/Tazobactam [Zosyn] 3.375 gm Med 10/23/20 12:45 Ordered Sodium Chloride 0.9% [Normal Saline] 50 ml IV Q6H Simvastatin [Simvastatin] Med 10/23/20 21:00 Ordered 20 mg PO BEDTIME SitaGLIPtin [Januvia] Med 10/24/20 09:00 Ordered 100 mg PO DAILY Sodium Chloride 0.9% [Saline Flush] Med 10/23/20 12:34 Ordered 10 ml FLUSH ASDIRECTED PRN glipiZIDE [Glucotrol] Med 10/23/20 21:00 Ordered 5 mg PO BID oxyCODONE Med 10/23/20 12:36 Ordered 5 - 10 mg PO Q4H PRN traZODone [traZODone] Med 10/23/20 21:00 Ordered 50 mg PO BEDTIME Peripheral IV Insertion Adult [OM.PC] Routine Oth 10/23/20 12:34 Ordered Sequential Compression Device [OM.PC] Routine Oth 10/23/20 12:36 Ordered VTE Pharmacological Contraindications [AST] Routine Oth 10/23/20 12:37 Ordered Resuscitation Status Routine Resus Stat 10/23/20 12:36 Ordered Medication Orders Acetaminophen (Acetaminophen 325 Mg Tab) 650 mg PO Q4H PRN PRN Reason: Pain (Mild 1-3)/fever Albuterol (Albuterol 0.083% 2.5 Mg/3 Ml Neb Soln) 2.5 mg NEB Q4H PRN PRN Reason: Shortness Of Breath/wheezing Aspirin (Aspirin 81 Mg Tab.Chew) 81 mg PO DAILY MARIA ELENA Glipizide (Glipizide 5 Mg Tab) 5 mg PO BIDAC MARIA ELENA Hydromorphone HCl (Hydromorphone 0.5 Mg/0.5 Ml Syringe) 0.5 mg IVPUSH Q2H PRN PRN Reason: Pain (severe 7-10) Piperacillin Sod/Tazobactam (Sod 3.375 gm/ Sodium Chloride) 50 mls @ 100 mls/hr IV Q6H MARIA ELENA Lactated Ringer's (Ringers, Lactated) 1,000 mls @ 125 mls/hr IV ASDIRECTED MARIA ELENA Lactated Ringer's (Ringers, Lactated) 500 mls @ 999 mls/hr IV ASDIRECTED MARIA ELENA Stop: 10/23/20 13:16 Lactobacillus Rhamnosus (Lactobacillus Rhamnosus Gg (Probiotic) Cap) 1 cap PO BID MARIA ELENA Levothyroxine Sodium (Levothyroxine 112 Mcg Tab) 112 mcg PO ACBREAKFAST MARIA ELENA Lorazepam (Lorazepam 2 Mg/Ml Sdv) 0.5 mg IVPUSH Q4H PRN PRN Reason: Nausea/Vomiting Magnesium Hydroxide (Magnesium Hydroxide 400 Mg/5 Ml Susp 30 Ml Cup) 30 ml PO Q12H PRN PRN Reason: Constipation Non-Formulary Medication (Pioglitazone Hcl [Pioglitazone Hcl]) 45 mg PO DAILY MARIA ELENA Non-Formulary Medication (Simvastatin [Simvastatin]) 20 mg PO BEDTIME MARIA ELENA Non-Formulary Medication (Sitagliptin [Januvia]) 100 mg PO DAILY MARIA ELENA Non-Formulary Medication (Trazodone [Trazodone]) 50 mg PO BEDTIME MARIA ELENA Ondansetron HCl (Ondansetron 4 Mg/2 Ml Sdv) 4 mg IV Q6H PRN PRN Reason: Nausea/Vomiting Ondansetron HCl (Ondansetron 4 Mg Tab.Dis) 4 mg PO Q6H PRN PRN Reason: Nausea able to take PO Oxycodone HCl (Oxycodone 5 Mg Tab) 5 - 10 mg PO Q4H PRN PRN Reason: Pain Senna/Docusate Sodium (Docusate Sodium/Sennosides 50-8.6 Mg Tab) 1 tab PO BID PRN PRN Reason: Constipation Sodium Chloride (Sodium Chloride 0.9% 10 Ml Syringe) 10 ml FLUSH ASDIRECTED PRN PRN Reason: Keep Vein Open Assessment/Plan Comment:: ASSESSMENT AND PLAN - Acute cholecystitis, suspected-progressive right upper quadrant pain with nausea. Gallbladder distended on CT. Lab work from yesterday fairly unremarkable other than leukopenia and thrombocytopenia. Patient very uncomfortable. She is in optimal achievable medical condition for a cholecystectomy. She has a good functional status and no obvious contraindications. -Antibiotic coverage with Pip/Tazo -IV fluids -symptomatic management of pain and nausea -Surgical consultation with Dr. Martin Leukopenia and thrombocytopenia-Could be related to infection but could represent underlying hematologic malignancy. -Peripheral smear Type 2 diabetes mellitus-controlled with oral medications. -Continue oral medications COPD-mild and stable. Maintenance issues - -DVT prophylaxis-mechanical -GI prophylaxis-not indicated -Nutrition-nothing by mouth -Oliver catheter-not indicated CODE STATUS -full code Admission justification -this patient will be admitted for inpatient services and is medically appropriate meeting medical necessity for inpatient admission as outlined in my documentation. I reasonably expect the patient will require inpatient services that span a period time over 2 midnights. I reasonably expect this patient to be discharged or transferred within 96 hours after admission to the Critical [facility]. Disposition -I anticipate discharge home after the hospital stay Primary care physician -Dr Aurelio Hunt M.D. - Mortality Measure Prognosis:: Good
[2020-10-23] MEDS ORDERED: Lactated Ringers 500 ML IV SCH (12:45)
[2020-10-23] MEDS: Piperacillin/Tazobactam/Dext 3.375 GM in Premix Bag 1 BAG IV SCH ×2 (13:23→18:46)
[2020-10-23] MEDS: Lactated Ringers 1,000 ML IV SCH ×2 (13:30→19:28)
[2020-10-23] MEDS: oxyCODONE 5 MG Tab PO PRN ×2 (14:39→20:16)
[2020-10-23] MEDS ORDERED: Succinylcholine 200 MG/10 ML MDV ONE (14:51)
[2020-10-23] MEDS ORDERED: Glycopyrrolate 0.2 MG/ML 5 ML MDV ONE (14:51)
[2020-10-23] MEDS ORDERED: Ondansetron 4 MG/2 ML SDV ONE (14:51)
[2020-10-23] MEDS ORDERED: Dexamethasone 4 MG/ML SDV ONE (14:51)
[2020-10-23] MEDS ORDERED: Neostigmine Methylsulfate 1 MG/ML 5 ML Syringe ONE (14:51)
[2020-10-23] MEDS ORDERED: fentaNYL 250 MCG/5 ML SDV ONE (14:51)
[2020-10-23] MEDS ORDERED: Propofol 200 MG/20 ML SDV ONE (14:51)
[2020-10-23] MEDS ORDERED: Rocuronium 50 MG/5 ML Vial ONE (14:51)
[2020-10-23] MEDS: glipiZIDE 5 MG Tab PO SCH (15:41)
[2020-10-23] MEDS ORDERED: Lactated Ringers 1,000 ML ONE (15:58)
[2020-10-23] MEDS: Bupivacaine 0.5%/EPINEPHrine 1:200,000 50 ML MDV ONE ×2 (16:07→17:15)
[2020-10-23] MEDS ORDERED: Sodium Chloride 0.9% 10 ML ONE (16:50)
[2020-10-23] MEDS ORDERED: Meropenem 500 MG SDV ONE ×2 (16:50→16:54)
[2020-10-23] MEDS: Albuterol/Ipratropium 3.0-0.5 MG/3 ML Neb Soln INH SCH (19:27)
[2020-10-23] MEDS ORDERED: Glucagon,Human Recombinant 1 MG Vial IM PRN (19:32)
[2020-10-23] MEDS ORDERED: 50% Dextrose in Water 50 ML Syringe IVPUSH PRN (19:32)
[2020-10-23] MEDS ORDERED: Glucose Gel 15 GM in 37.5 GM Tube PO PRN (19:32)
[2020-10-23] MEDS ORDERED: Naloxone 0.4 MG/ML SDV IV PRN (20:00)
[2020-10-23] MEDS: Insulin Lispro 100 Unit/ML 3 ML KwikPen SUBCUT PRN (20:03)
[2020-10-23] MEDS: Pantoprazole 40 MG Vial IV SCH (20:07)
[2020-10-23] MEDS ORDERED: Non-Formulary Medication 1 Each (Trazodone [Trazodone] 100 MG Tablet) PO SCH (21:00)
[2020-10-23] MEDS ORDERED: atorvaSTATin 10 MG Tab PO SCH (21:00)
[2020-10-23] MEDS ORDERED: Lactobacillus Rhamnosus GG (Probiotic) Cap PO SCH (21:00)
[2020-10-23] MEDS ORDERED: traZODone 50 MG Tab PO SCH (21:00)
[2020-10-23] MEDS ORDERED: SIMVASTATIN PO SCH (21:00)
[2020-10-23] MEDS: Acetaminophen 325 MG Tab PO SCH (23:08)
[2020-10-24] MEDS: oxyCODONE 5 MG Tab PO PRN ×2 (00:14→04:30)
[2020-10-24] MEDS: Albuterol/Ipratropium 3.0-0.5 MG/3 ML Neb Soln INH SCH ×5 (00:14→22:05)
[2020-10-24] MEDS: Piperacillin/Tazobactam/Dext 3.375 GM in Premix Bag 1 BAG IV SCH ×4 (00:16→18:05)
[2020-10-24] MEDS: Insulin Lispro 100 Unit/ML 3 ML KwikPen SUBCUT PRN ×4 (02:40→20:17)
[2020-10-24] MEDS: Acetaminophen 325 MG Tab PO SCH ×4 (04:00→22:05)
[2020-10-24] MEDS: HYDROmorphone 0.5 MG/0.5 ML Syringe IVPUSH PRN ×2 (06:15→07:31)
[2020-10-24] MEDS: Lactated Ringers 1,000 ML IV SCH ×2 (07:33→18:06)
[2020-10-24] MEDS ORDERED: Albuterol/Ipratropium 3.0-0.5 MG/3 ML Neb Soln INH PRN (07:36)
[2020-10-24] MEDS: Levothyroxine 112 MCG Tab PO SCH (08:40)
[2020-10-24] MEDS ORDERED: Aspirin 81 MG Tab.Chew PO SCH (09:00)
[2020-10-24] MEDS ORDERED: PIOGLITAZONE HCL 30 MG PO SCH (09:00)
[2020-10-24] MEDS ORDERED: SITAGLIPTIN PO SCH (09:00)
--- NOTE | 2020-10-24 09:41 | PCM.PN ---
- General Info Date of Service: 10/24/20 Subjective Update: Patient did go down for cholecystectomy yesterday and her laparoscopic procedure was converted to open because of significant bleeding encountered while trying t o remove the gallbladder. Bleeding was eventually controlled but she did require 2 units of blood via transfusion during the operation. Vital signs have been stable overnight. She is endorsing mild to moderate generalized abdominal pain especially in the area of her right upper quadrant incision. No nausea. She is thirsty and wants something to drink. No fevers overnight. Hemoglobin stable this morning. Functional Status: Reports: Pain Controlled - Review of Systems General: Denies: Fever Gastrointestinal: Reports: Abdominal Pain - Patient Data Vitals - Most Recent: Last Vital Signs Temp 36.4 C 10/24/20 08:00 Pulse 66 10/24/20 08:00 Resp 12 10/24/20 08:00 BP 98/49 L 10/24/20 08:00 Pulse Ox 96 10/24/20 08:00 Weight - Most Recent: 86.183 kg I&O - Last 24 Hours: Intake & Output 10/23/20 10/24/20 10/24/20 22:59 06:59 14:59 Intake Total 50 1436 Output Total 48/ 345 Balance -43/ 1091 Lab Results Last 24 Hours: Laboratory Results - last 24 hr 10/23/20 10/23/20 10/23/20 Range/Units 10:03 12:55 12:55 WBC 4.1 L 2.6 L (4.5-11.0) K/uL RBC 4.86 5.21 (3.30-5.50) M/uL Hgb 13.7 14.7 (12.0-15.0) g/dL Hct 42.6 45.1 (36.0-48.0) % MCV 88 87 (80-98) fL MCH 28 28 (27-31) pg MCHC 32 33 (32-36) % Plt Count 69 L 78 L (150-400) K/uL Add Manual Diff Yes Neutrophils % (Manual) 69 H (36-66) % Lymphocytes % (Manual) 19 L (24-44) % Monocytes % (Manual) 12 H (2-6) % Eosinophils % (Manual) 0 L (2-4) % Basophils % (Manual) 0 (0-1) % Atypical Lymphocytes Few Sodium 135 L (140-148) mmol/L Potassium 4.6 (3.6-5.2) mmol/L Chloride 96 L (100-108) mmol/L Carbon Dioxide 29 (21-32) mmol/L Anion Gap 14.6 H (5.0-14.0) mmol/L BUN 27 H (7-18) mg/dL Creatinine 1.4 H (0.6-1.0) mg/dL Est Cr Clr Drug Dosing TNP Estimated GFR (MDRD) 37 L (>60) Glucose 227 H (74-106) mg/dL POC Glucose (74-106) mg/dL Lactic Acid (0.4-2.0) mmol/L Calcium 8.6 (8.5-10.1) mg/dL Phosphorus (2.5-4.9) mg/dL Magnesium (1.8-2.4) mg/dL Total Bilirubin 0.8 (0.2-1.0) mg/dL AST 47 H (15-37) U/L ALT 40 (12-78) U/L Alkaline Phosphatase 63 (46-116) U/L C-Reactive Protein 10.65 H (0.0-0.3) mg/dL NT-Pro-B Natriuret Pep (5-450) pg/mL Total Protein 6.2 L (6.4-8.2) g/dL Albumin 2.8 L (3.4-5.0) g/dL Globulin 3.4 (2.3-3.5) g/dL Albumin/Globulin Ratio 0.8 L (1.2-2.2) TSH, Ultra Sensitive (0.358-3.740) uIU/mL Blood Type Gel Antibody Screen Crossmatch 10/23/20 10/23/20 10/23/20 Range/Units 12:55 16:33 17:28 WBC (4.5-11.0) K/uL RBC (3.30-5.50) M/uL Hgb (12.0-15.0) g/dL Hct (36.0-48.0) % MCV (80-98) fL MCH (27-31) pg MCHC (32-36) % Plt Count (150-400) K/uL Add Manual Diff Neutrophils % (Manual) (36-66) % Lymphocytes % (Manual) (24-44) % Monocytes % (Manual) (2-6) % Eosinophils % (Manual) (2-4) % Basophils % (Manual) (0-1) % Atypical Lymphocytes Sodium (140-148) mmol/L Potassium (3.6-5.2) mmol/L Chloride (100-108) mmol/L Carbon Dioxide (21-32) mmol/L Anion Gap (5.0-14.0) mmol/L BUN (7-18) mg/dL Creatinine (0.6-1.0) mg/dL Est Cr Clr Drug Dosing Estimated GFR (MDRD) (>60) Glucose (74-106) mg/dL POC Glucose 250 H (74-106) mg/dL Lactic Acid 1.3 (0.4-2.0) mmol/L Calcium (8.5-10.1) mg/dL Phosphorus (2.5-4.9) mg/dL Magnesium (1.8-2.4) mg/dL Total Bilirubin (0.2-1.0) mg/dL AST (15-37) U/L ALT (12-78) U/L Alkaline Phosphatase (46-116) U/L C-Reactive Protein (0.0-0.3) mg/dL NT-Pro-B Natriuret Pep (5-450) pg/mL Total Protein (6.4-8.2) g/dL Albumin (3.4-5.0) g/dL Globulin (2.3-3.5) g/dL Albumin/Globulin Ratio (1.2-2.2) TSH, Ultra Sensitive (0.358-3.740) uIU/mL Blood Type O POSITIVE Gel Antibody Screen Negative Crossmatch See Detail 10/23/20 10/23/20 10/24/20 Range/Units 18:12 19:58 00:00 WBC 5.3 (4.5-11.0) K/uL RBC 4.70 (3.30-5.50) M/uL Hgb 13.5 (12.0-15.0) g/dL Hct 41.0 (36.0-48.0) % MCV 87 (80-98) fL MCH 29 (27-31) pg MCHC 33 (32-36) % Plt Count 76 L (150-400) K/uL Add Manual Diff Neutrophils % (Manual) (36-66) % Lymphocytes % (Manual) (24-44) % Monocytes % (Manual) (2-6) % Eosinophils % (Manual) (2-4) % Basophils % (Manual) (0-1) % Atypical Lymphocytes Sodium (140-148) mmol/L Potassium (3.6-5.2) mmol/L Chloride (100-108) mmol/L Carbon Dioxide (21-32) mmol/L Anion Gap (5.0-14.0) mmol/L BUN (7-18) mg/dL Creatinine (0.6-1.0) mg/dL Est Cr Clr Drug Dosing Estimated GFR (MDRD) (>60) Glucose (74-106) mg/dL POC Glucose 254 H 261 H (74-106) mg/dL Lactic Acid (0.4-2.0) mmol/L Calcium (8.5-10.1) mg/dL Phosphorus (2.5-4.9) mg/dL Magnesium (1.8-2.4) mg/dL Total Bilirubin (0.2-1.0) mg/dL AST (15-37) U/L ALT (12-78) U/L Alkaline Phosphatase (46-116) U/L C-Reactive Protein (0.0-0.3) mg/dL NT-Pro-B Natriuret Pep (5-450) pg/mL Total Protein (6.4-8.2) g/dL Albumin (3.4-5.0) g/dL Globulin (2.3-3.5) g/dL Albumin/Globulin Ratio (1.2-2.2) TSH, Ultra Sensitive (0.358-3.740) uIU/mL Blood Type Gel Antibody Screen Crossmatch 10/24/20 10/24/20 10/24/20 Range/Units 02:37 04:00 04:00 WBC 5.3 (4.5-11.0) K/uL RBC 4.47 (3.30-5.50) M/uL Hgb 13.0 (12.0-15.0) g/dL Hct 39.2 (36.0-48.0) % MCV 88 (80-98) fL MCH 29 (27-31) pg MCHC 33 (32-36) % Plt Count 85 L (150-400) K/uL Add Manual Diff Neutrophils % (Manual) (36-66) % Lymphocytes % (Manual) (24-44) % Monocytes % (Manual) (2-6) % Eosinophils % (Manual) (2-4) % Basophils % (Manual) (0-1) % Atypical Lymphocytes Sodium 136 L (140-148) mmol/L Potassium 4.3 (3.6-5.2) mmol/L Chloride 99 L (100-108) mmol/L Carbon Dioxide 22 (21-32) mmol/L Anion Gap 19.3 H (5.0-14.0) mmol/L BUN 32 H (7-18) mg/dL Creatinine 1.3 H (0.6-1.0) mg/dL Est Cr Clr Drug Dosing 33.80 Estimated GFR (MDRD) 40 L (>60) Glucose 261 H (74-106) mg/dL POC Glucose 267 H (74-106) mg/dL Lactic Acid (0.4-2.0) mmol/L Calcium 7.9 L (8.5-10.1) mg/dL Phosphorus 4.7 (2.5-4.9) mg/dL Magnesium 1.8 (1.8-2.4) mg/dL Total Bilirubin 1.1 H (0.2-1.0) mg/dL AST 291 H D (15-37) U/L ALT 194 H (12-78) U/L Alkaline Phosphatase 277 H D (46-116) U/L C-Reactive Protein (0.0-0.3) mg/dL NT-Pro-B Natriuret Pep 441 (5-450) pg/mL Total Protein 5.1 L (6.4-8.2) g/dL Albumin 2.2 L (3.4-5.0) g/dL Globulin 2.9 (2.3-3.5) g/dL Albumin/Globulin Ratio 0.8 L (1.2-2.2) TSH, Ultra Sensitive 1.674 (0.358-3.740) uIU/mL Blood Type Gel Antibody Screen Crossmatch 10/24/20 Range/Units 08:57 WBC (4.5-11.0) K/uL RBC (3.30-5.50) M/uL Hgb (12.0-15.0) g/dL Hct (36.0-48.0) % MCV (80-98) fL MCH (27-31) pg MCHC (32-36) % Plt Count (150-400) K/uL Add Manual Diff Neutrophils % (Manual) (36-66) % Lymphocytes % (Manual) (24-44) % Monocytes % (Manual) (2-6) % Eosinophils % (Manual) (2-4) % Basophils % (Manual) (0-1) % Atypical Lymphocytes Sodium (140-148) mmol/L Potassium (3.6-5.2) mmol/L Chloride (100-108) mmol/L Carbon Dioxide (21-32) mmol/L Anion Gap (5.0-14.0) mmol/L BUN (7-18) mg/dL Creatinine (0.6-1.0) mg/dL Est Cr Clr Drug Dosing Estimated GFR (MDRD) (>60) Glucose (74-106) mg/dL POC Glucose 242 H (74-106) mg/dL Lactic Acid (0.4-2.0) mmol/L Calcium (8.5-10.1) mg/dL Phosphorus (2.5-4.9) mg/dL Magnesium (1.8-2.4) mg/dL Total Bilirubin (0.2-1.0) mg/dL AST (15-37) U/L ALT (12-78) U/L Alkaline Phosphatase (46-116) U/L C-Reactive Protein (0.0-0.3) mg/dL NT-Pro-B Natriuret Pep (5-450) pg/mL Total Protein (6.4-8.2) g/dL Albumin (3.4-5.0) g/dL Globulin (2.3-3.5) g/dL Albumin/Globulin Ratio (1.2-2.2) TSH, Ultra Sensitive (0.358-3.740) uIU/mL Blood Type Gel Antibody Screen Crossmatch Med Orders - Current: Current Medications Acetaminophen (Acetaminophen 325 Mg Tab) 650 mg PO Q6HR [facility] Last Admin: 10/24/20 09:14 Dose: 650 mg Documented by: Albuterol/Ipratropium (Albuterol/Ipratropium 3.0-0.5 Mg/3 Ml Neb Soln) 3 ml INH QIDRT MARIA ELENA Albuterol/Ipratropium (Albuterol/Ipratropium 3.0-0.5 Mg/3 Ml Neb Soln) 3 ml INH Q4H PRN PRN Reason: BREATHING Alogliptin Benzoate (Alogliptin 12.5 Mg Tab) 12.5 mg PO DAILY [facility] Last Admin: 10/24/20 09:12 Dose: 12.5 mg Documented by: Ropivacaine 43 ml/Dexamethasone 8 mg/Epinephrine HCl 0.4 mg/ Sodium Chloride 34.6 ml 0 ml NERVRT ASDIRECTED [facility] Dextrose (Glucose Gel 15 Gm In 37.5 Gm Tube) 15 gm PO ASDIRECTED PRN PRN Reason: HYPOGLYCEMIA Dextrose/Water (50% Dextrose In Water 50 Ml Syringe) 50 ml IVPUSH ASDIRECTED PRN PRN Reason: HYPOGLYCEMIA Glucagon (Glucagon,Human Recombinant 1 Mg Vial) 1 mg IM ASDIRECTED PRN PRN Reason: HYPOGLYCEMIA Hydromorphone HCl (Hydromorphone/Normal Saline 15 Mg/30 Ml [employer]) 0 mg IV ASDIRECTED PRN; Protocol PRN Reason: [employer] PAIN CONTROL Lactated Ringer's (Ringers, Lactated) 1,000 mls @ 100 mls/hr IV ASDIRECTED [facility] Last Admin: 10/24/20 07:33 Dose: 100 mls/hr Documented by: Piperacillin/Tazobactam/ (Dextrose 3.375 gm/ Premix) 50 mls @ 100 mls/hr IV Q6H [facility] Last Admin: 10/24/20 06:30 Dose: 100 mls/hr Documented by: Insulin Human Lispro (Insulin Lispro 100 Unit/Ml 3 Ml Kwikpen) 0 unit SUBCUT QID PRN; Protocol PRN Reason: MEDIUM CORRECTIONAL DOSING Last Admin: 10/24/20 09:07 Dose: 3 units Documented by: Levothyroxine Sodium (Levothyroxine 112 Mcg Tab) 112 mcg PO ACBREAKFAST [facility] Last Admin: 10/24/20 08:40 Dose: 112 mcg Documented by: Naloxone HCl (Naloxone 0.4 Mg/Ml Sdv) 0.1 mg IV ASDIRECTED PRN PRN Reason: decreased respiratory rate Ondansetron HCl (Ondansetron 4 Mg/2 Ml Sdv) 4 mg IV Q4H PRN PRN Reason: Nausea/Vomiting Pantoprazole Sodium (Pantoprazole 40 Mg Vial) 40 mg IV Q24H [facility] Last Admin: 10/23/20 20:07 Dose: 40 mg Documented by: Senna/Docusate Sodium (Docusate Sodium/Sennosides 50-8.6 Mg Tab) 1 tab PO BID [facility] Last Admin: 10/24/20 09:13 Dose: 1 tab Documented by: Sodium Chloride (Sodium Chloride 0.9% 10 Ml Syringe) 10 ml FLUSH ASDIRECTED PRN PRN Reason: Keep Vein Open Discontinued Medications Acetaminophen (Acetaminophen 325 Mg Tab) 650 mg PO Q4H PRN PRN Reason: Pain (Mild 1-3)/fever Albuterol (Albuterol 0.083% 2.5 Mg/3 Ml Neb Soln) 2.5 mg NEB Q4H PRN PRN Reason: Shortness Of Breath/wheezing Last Admin: 10/23/20 15:14 Dose: 2.5 mg Documented by: Albuterol/Ipratropium (Albuterol/Ipratropium 3.0-0.5 Mg/3 Ml Neb Soln) 3 ml INH Q4H [facility] Last Admin: 10/24/20 04:00 Dose: 3 ml Documented by: Alogliptin Benzoate (Alogliptin 12.5 Mg Tab) 12.5 mg PO DAILY [facility] Aspirin (Aspirin 81 Mg Tab.Chew) 81 mg PO DAILY [facility] Atorvastatin Calcium (Atorvastatin 10 Mg Tab) 10 mg PO BEDTIME [facility] Last Admin: 10/23/20 23:09 Dose: Not Given Documented by: Bupivacaine HCl/Epinephrine Bitart (Bupivacaine 0.5%/Epinephrine 1:200,000 50 Ml Mdv) Confirm Administered Dose 50 ml .ROUTE .STK-MED ONE Stop: 10/23/20 15:04 Last Admin: 10/23/20 17:15 Dose: 20 ml Documented by: Ropivacaine 43 ml/Dexamethasone 8 mg/Epinephrine HCl 0.4 mg/ Sodium Chloride 34.6 ml 0 ml NERVRT ASDIRECTED [facility] Last Admin: 10/23/20 15:53 Dose: 80 syringe Documented by: Dexamethasone (Dexamethasone 4 Mg/Ml Sdv) Confirm Administered Dose 4 mg .ROUTE .STK-MED ONE Stop: 10/23/20 14:52 Fentanyl (Fentanyl 250 Mcg/5 Ml Sdv) Confirm Administered Dose 250 mcg .ROUTE .STK-MED ONE Stop: 10/23/20 14:52 [facility] 5 Mg [facility] Admin: 10/23/20 15:41 Dose: Not Given Documented by: Glycopyrrolate (Glycopyrrolate 0.2 Mg/Ml 5 Ml Mdv) Confirm Administered Dose 1 mg .ROUTE .STK-MED ONE Stop: 10/23/20 14:52 Hydromorphone HCl (Hydromorphone 0.5 Mg/0.5 Ml Syringe) 0.5 mg IVPUSH Q2H PRN PRN Reason: Pain (severe 7-10) Last Admin: 10/24/20 07:31 Dose: 0.5 mg Documented by: Piperacillin Sod/Tazobactam (Sod 3.375 gm/ Sodium Chloride) 50 mls @ 100 mls/hr IV Q6H [facility] Lactated Ringer's (Ringers, Lactated) 500 mls @ 999 mls/hr IV ASDIRECTED [facility] Stop: 10/23/20 13:16 Lactated Ringer's (Ringers, Lactated) Confirm Administered Dose 1,000 mls @ as directed .ROUTE .STK-MED ONE Stop: 10/23/20 15:59 Sodium Chloride (Normal Saline) Confirm Administered Dose 10 mls @ as directed .ROUTE .STK-MED ONE Stop: 10/23/20 16:51 Lactobacillus Rhamnosus (Lactobacillus Rhamnosus Gg (Probiotic) Cap) 1 cap PO BID [facility] Last Admin: 10/23/20 23:09 Dose: Not Given Documented by: Lorazepam (Lorazepam 2 Mg/Ml Sdv) 0.5 mg IVPUSH Q4H PRN PRN Reason: Nausea/Vomiting Magnesium Hydroxide (Magnesium Hydroxide 400 Mg/5 Ml Susp 30 Ml Cup) 30 ml PO Q12H PRN PRN Reason: Constipation Meropenem (Meropenem 500 Mg Sdv) Confirm Administered Dose 500 mg .ROUTE .STK- MED ONE Stop: 10/23/20 16:51 Last Admin: 10/23/20 17:02 Dose: 500 mg Documented by: Meropenem (Meropenem 500 Mg Sdv) Confirm Administered Dose 500 mg .ROUTE .STK- MED ONE Stop: 10/23/20 16:55 Neostigmine Methylsulfate (Neostigmine Methylsulfate 1 Mg/Ml 5 Ml Syringe) Confirm Administered Dose 5 mg .ROUTE .STK-MED ONE Stop: 10/23/20 14:52 Non-Formulary Medication (Pioglitazone Hcl [Pioglitazone Hcl]) 45 mg PO DAILY [facility] Ondansetron HCl (Ondansetron 4 Mg/2 Ml Sdv) 4 mg IV Q6H PRN PRN Reason: Nausea/Vomiting Ondansetron HCl (Ondansetron 4 Mg Tab.Dis) 4 mg PO Q6H PRN PRN Reason: Nausea able to take PO Ondansetron HCl (Ondansetron 4 Mg/2 Ml Sdv) Confirm Administered Dose 4 mg .ROUTE .STK-MED ONE Stop: 10/23/20 14:52 Oxycodone HCl (Oxycodone 5 Mg Tab) 5 - 10 mg PO Q4H PRN PRN Reason: Pain Last Admin: 10/24/20 04:30 Dose: 5 mg Documented by: Propofol (Propofol 200 Mg/20 Ml Sdv) Confirm Administered Dose 200 mg .ROUTE .STK-MED ONE Stop: 10/23/20 14:52 Rocuronium [place] (Rocuronium 50 Mg/5 Ml Vial) Confirm Administered Dose 50 mg .ROUTE .STK-MED ONE Stop: 10/23/20 14:52 Senna/Docusate Sodium (Docusate Sodium/Sennosides 50-8.6 Mg Tab) 1 tab PO BID PRN PRN Reason: Constipation Succinylcholine Chloride (Succinylcholine 200 Mg/10 Ml Mdv) Confirm Administered Dose 200 mg .ROUTE .STK-MED ONE Stop: 10/23/20 14:52 Trazodone HCl (Trazodone 50 Mg Tab) 50 mg PO BEDTIME [facility] Last Admin: 10/23/20 23:08 Dose: Not Given Documented by: - Exam Quality Assessment: Supplemental Oxygen Urinary Catheter Total Time: 0Days 1Hours General: Alert, Oriented, Cooperative, Mild Distress Lungs: Clear to Auscultation, Normal Respiratory Effort Cardiovascular: Regular Rate, Regular Rhythm GI/Abdominal Exam: Soft, No Distention, Tender Extremities: No Pedal Edema. No: Increased Warmth Skin: Warm, Dry Psy/Mental Status: Alert, Normal Affect - Patient Data Lab Results Last 24 hrs: Laboratory Results - last 24 hr 10/23/20 10/23/20 10/23/20 Range/Units 10:03 12:55 12:55 WBC 4.1 L 2.6 L (4.5-11.0) K/uL RBC 4.86 5.21 (3.30-5.50) M/uL Hgb 13.7 14.7 (12.0-15.0) g/dL Hct 42.6 45.1 (36.0-48.0) % MCV 88 87 (80-98) fL MCH 28 28 (27-31) pg MCHC 32 33 (32-36) % Plt Count 69 L 78 L (150-400) K/uL Add Manual Diff Yes Neutrophils % (Manual) 69 H (36-66) % Lymphocytes % (Manual) 19 L (24-44) % Monocytes % (Manual) 12 H (2-6) % Eosinophils % (Manual) 0 L (2-4) % Basophils % (Manual) 0 (0-1) % Atypical Lymphocytes Few Sodium 135 L (140-148) mmol/L Potassium 4.6 (3.6-5.2) mmol/L Chloride 96 L (100-108) mmol/L Carbon Dioxide 29 (21-32) mmol/L Anion Gap 14.6 H (5.0-14.0) mmol/L BUN 27 H (7-18) mg/dL Creatinine 1.4 H (0.6-1.0) mg/dL Est Cr Clr Drug Dosing TNP Estimated GFR (MDRD) 37 L (>60) Glucose 227 H (74-106) mg/dL POC Glucose (74-106) mg/dL Lactic Acid (0.4-2.0) mmol/L Calcium 8.6 (8.5-10.1) mg/dL Phosphorus (2.5-4.9) mg/dL Magnesium (1.8-2.4) mg/dL Total Bilirubin 0.8 (0.2-1.0) mg/dL AST 47 H (15-37) U/L ALT 40 (12-78) U/L Alkaline Phosphatase 63 (46-116) U/L C-Reactive Protein 10.65 H (0.0-0.3) mg/dL NT-Pro-B Natriuret Pep (5-450) pg/mL Total Protein 6.2 L (6.4-8.2) g/dL Albumin 2.8 L (3.4-5.0) g/dL Globulin 3.4 (2.3-3.5) g/dL Albumin/Globulin Ratio 0.8 L (1.2-2.2) TSH, Ultra Sensitive (0.358-3.740) uIU/mL Blood Type Gel Antibody Screen Crossmatch 10/23/20 10/23/20 10/23/20 Range/Units 12:55 16:33 17:28 WBC (4.5-11.0) K/uL RBC (3.30-5.50) M/uL Hgb (12.0-15.0) g/dL Hct (36.0-48.0) % MCV (80-98) fL MCH (27-31) pg MCHC (32-36) % Plt Count (150-400) K/uL Add Manual Diff Neutrophils % (Manual) (36-66) % Lymphocytes % (Manual) (24-44) % Monocytes % (Manual) (2-6) % Eosinophils % (Manual) (2-4) % Basophils % (Manual) (0-1) % Atypical Lymphocytes Sodium (140-148) mmol/L Potassium (3.6-5.2) mmol/L Chloride (100-108) mmol/L Carbon Dioxide (21-32) mmol/L Anion Gap (5.0-14.0) mmol/L BUN (7-18) mg/dL Creatinine (0.6-1.0) mg/dL Est Cr Clr Drug Dosing Estimated GFR (MDRD) (>60) Glucose (74-106) mg/dL POC Glucose 250 H (74-106) mg/dL Lactic Acid 1.3 (0.4-2.0) mmol/L Calcium (8.5-10.1) mg/dL Phosphorus (2.5-4.9) mg/dL Magnesium (1.8-2.4) mg/dL Total Bilirubin (0.2-1.0) mg/dL AST (15-37) U/L ALT (12-78) U/L Alkaline Phosphatase (46-116) U/L C-Reactive Protein (0.0-0.3) mg/dL NT-Pro-B Natriuret Pep (5-450) pg/mL Total Protein (6.4-8.2) g/dL Albumin (3.4-5.0) g/dL Globulin (2.3-3.5) g/dL Albumin/Globulin Ratio (1.2-2.2) TSH, Ultra Sensitive (0.358-3.740) uIU/mL Blood Type O POSITIVE Gel Antibody Screen Negative Crossmatch See Detail 10/23/20 10/23/20 10/24/20 Range/Units 18:12 19:58 00:00 WBC 5.3 (4.5-11.0) K/uL RBC 4.70 (3.30-5.50) M/uL Hgb 13.5 (12.0-15.0) g/dL Hct 41.0 (36.0-48.0) % MCV 87 (80-98) fL MCH 29 (27-31) pg MCHC 33 (32-36) % Plt Count 76 L (150-400) K/uL Add Manual Diff Neutrophils % (Manual) (36-66) % Lymphocytes % (Manual) (24-44) % Monocytes % (Manual) (2-6) % Eosinophils % (Manual) (2-4) % Basophils % (Manual) (0-1) % Atypical Lymphocytes Sodium (140-148) mmol/L Potassium (3.6-5.2) mmol/L Chloride (100-108) mmol/L Carbon Dioxide (21-32) mmol/L Anion Gap (5.0-14.0) mmol/L BUN (7-18) mg/dL Creatinine (0.6-1.0) mg/dL Est Cr Clr Drug Dosing Estimated GFR (MDRD) (>60) Glucose (74-106) mg/dL POC Glucose 254 H 261 H (74-106) mg/dL Lactic Acid (0.4-2.0) mmol/L Calcium (8.5-10.1) mg/dL Phosphorus (2.5-4.9) mg/dL Magnesium (1.8-2.4) mg/dL Total Bilirubin (0.2-1.0) mg/dL AST (15-37) U/L ALT (12-78) U/L Alkaline Phosphatase (46-116) U/L C-Reactive Protein (0.0-0.3) mg/dL NT-Pro-B Natriuret Pep (5-450) pg/mL Total Protein (6.4-8.2) g/dL Albumin (3.4-5.0) g/dL Globulin (2.3-3.5) g/dL Albumin/Globulin Ratio (1.2-2.2) TSH, Ultra Sensitive (0.358-3.740) uIU/mL Blood Type Gel Antibody Screen Crossmatch 10/24/20 10/24/20 10/24/20 Range/Units 02:37 04:00 04:00 WBC 5.3 (4.5-11.0) K/uL RBC 4.47 (3.30-5.50) M/uL Hgb 13.0 (12.0-15.0) g/dL Hct 39.2 (36.0-48.0) % MCV 88 (80-98) fL MCH 29 (27-31) pg MCHC 33 (32-36) % Plt Count 85 L (150-400) K/uL Add Manual Diff Neutrophils % (Manual) (36-66) % Lymphocytes % (Manual) (24-44) % Monocytes % (Manual) (2-6) % Eosinophils % (Manual) (2-4) % Basophils % (Manual) (0-1) % Atypical Lymphocytes Sodium 136 L (140-148) mmol/L Potassium 4.3 (3.6-5.2) mmol/L Chloride 99 L (100-108) mmol/L Carbon Dioxide 22 (21-32) mmol/L Anion Gap 19.3 H (5.0-14.0) mmol/L BUN 32 H (7-18) mg/dL Creatinine 1.3 H (0.6-1.0) mg/dL Est Cr Clr Drug Dosing 33.80 Estimated GFR (MDRD) 40 L (>60) Glucose 261 H (74-106) mg/dL POC Glucose 267 H (74-106) mg/dL Lactic Acid (0.4-2.0) mmol/L Calcium 7.9 L (8.5-10.1) mg/dL Phosphorus 4.7 (2.5-4.9) mg/dL Magnesium 1.8 (1.8-2.4) mg/dL Total Bilirubin 1.1 H (0.2-1.0) mg/dL AST 291 H D (15-37) U/L ALT 194 H (12-78) U/L Alkaline Phosphatase 277 H D (46-116) U/L C-Reactive Protein (0.0-0.3) mg/dL NT-Pro-B Natriuret Pep 441 (5-450) pg/mL Total Protein 5.1 L (6.4-8.2) g/dL Albumin 2.2 L (3.4-5.0) g/dL Globulin 2.9 (2.3-3.5) g/dL Albumin/Globulin Ratio 0.8 L (1.2-2.2) TSH, Ultra Sensitive 1.674 (0.358-3.740) uIU/mL Blood Type Gel Antibody Screen Crossmatch 10/24/20 Range/Units 08:57 WBC (4.5-11.0) K/uL RBC (3.30-5.50) M/uL Hgb (12.0-15.0) g/dL Hct (36.0-48.0) % MCV (80-98) fL MCH (27-31) pg MCHC (32-36) % Plt Count (150-400) K/uL Add Manual Diff Neutrophils % (Manual) (36-66) % Lymphocytes % (Manual) (24-44) % Monocytes % (Manual) (2-6) % Eosinophils % (Manual) (2-4) % Basophils % (Manual) (0-1) % Atypical Lymphocytes Sodium (140-148) mmol/L Potassium (3.6-5.2) mmol/L Chloride (100-108) mmol/L Carbon Dioxide (21-32) mmol/L Anion Gap (5.0-14.0) mmol/L BUN (7-18) mg/dL Creatinine (0.6-1.0) mg/dL Est Cr Clr Drug Dosing Estimated GFR (MDRD) (>60) Glucose (74-106) mg/dL POC Glucose 242 H (74-106) mg/dL Lactic Acid (0.4-2.0) mmol/L Calcium (8.5-10.1) mg/dL Phosphorus (2.5-4.9) mg/dL Magnesium (1.8-2.4) mg/dL Total Bilirubin (0.2-1.0) mg/dL AST (15-37) U/L ALT (12-78) U/L Alkaline Phosphatase (46-116) U/L C-Reactive Protein (0.0-0.3) mg/dL NT-Pro-B Natriuret Pep (5-450) pg/mL Total Protein (6.4-8.2) g/dL Albumin (3.4-5.0) g/dL Globulin (2.3-3.5) g/dL Albumin/Globulin Ratio (1.2-2.2) TSH, Ultra Sensitive (0.358-3.740) uIU/mL Blood Type Gel Antibody Screen Crossmatch Result Diagrams: 10/24/20 04:00 10/24/20 04:00 Sepsis Event Note - Evaluation Sepsis Screening Result: No Definite Risk - Focused Exam Vital Signs: Vital Signs Temp Pulse Resp BP Pulse Ox 10/24/20 08:00 36.4 C 66 12 98/49 L 96 10/24/20 07:00 67 12 96/49 L 96 10/24/20 06:00 36.7 C 70 17 113/54 L 94 L 10/24/20 05:00 74 19 108/64 96 10/24/20 04:00 57 L 12 106/57 L 97 10/24/20 03:00 36.6 C 61 12 100/61 98 10/24/20 02:00 58 L 13 91/52 L 98 10/24/20 01:00 12 106/56 L 95 10/24/20 00:00 36.3 C 11 L 91/55 L 97 10/23/20 23:00 11 L 91/54 L 95 10/23/20 22:00 12 91/53 L 97 - Problem List & Annotations (1) Acute cholecystitis without calculus SNOMED Code(s): 60119358 Code(s): K81.0 - ACUTE CHOLECYSTITIS Status: Acute Current Visit: Yes (2) Leukopenia SNOMED Code(s): 84608216, 658734412 Code(s): D72.819 - DECREASED WHITE BLOOD CELL COUNT, UNSPECIFIED Status: Acute Current Visit: Yes Qualifiers: Leukopenia type: unspecified Qualified Code(s): D72.819 - Decreased white blood cell count, unspecified (3) Thrombocytopenia SNOMED Code(s): 805461165 Code(s): D69.6 - THROMBOCYTOPENIA, UNSPECIFIED Status: Acute Current Visit: Yes (4) Type 2 diabetes mellitus SNOMED Code(s): 68136574 Code(s): E11.9 - TYPE 2 DIABETES MELLITUS WITHOUT COMPLICATIONS Status: Chronic Current Visit: Yes Qualifiers: Diabetes mellitus snf insulin use: without snf use Diabetes mellitus complication status: without complication Qualified Code(s): E11.9 - Type 2 diabetes mellitus without complications (5) COPD (chronic obstructive pulmonary disease) SNOMED Code(s): 57366422 Code(s): J44.9 - CHRONIC OBSTRUCTIVE PULMONARY DISEASE, UNSPECIFIED Status: Chronic Current Visit: Yes Qualifiers: COPD type: unspecified COPD Qualified Code(s): J44.9 - Chronic obstructive pulmonary disease, unspecified - Problem List Review Problem List Initiated/Reviewed/Updated: Yes - My Orders Last 24 Hours: My Active Orders 10/23/20 12:30 Piperacillin/Tazobactam/Dext [Zosyn in Dextrose Iso-Osmotic 3.375 GM/50 ML] 3.375 gm Premix Bag 1 bag IV Q6H 10/23/20 12:34 Peripheral IV Care [RC] . DIRECTED Sodium Chloride 0.9% [Saline Flush] 10 ml FLUSH ASDIRECTED PRN Peripheral IV Insertion Adult [OM.PC] Routine 10/23/20 12:36 Patient Status [ADT] Routine Antiembolic Devices [RC] .Routine Intake and Output [RC] Q1H Notify Provider Vital Signs [RC] ASDIRECTED Oxygen Therapy [RC] PRN Up With Assistance [RC] ASDIRECTED VTE/DVT Education [RC] Per Unit Routine Vital Signs [RC] Q2H Consult to Physician [CONS] Routine Sequential Compression Device [OM.PC] Routine Resuscitation Status Routine 10/23/20 12:37 VTE Pharmacological Contraindications [AST] Routine 10/23/20 12:38 RT Aerosol Therapy [RC] ASDIRECTED 10/23/20 12:39 Notify Provider Consults [RC] ASDIRECTED 10/23/20 12:45 Lactated Ringers [Ringers, Lactated] 1,000 ml IV ASDIRECTED 10/23/20 13:23 HEMATOPATH CONSULTATION, SMEAR Routine 10/23/20 Dinner Nothing per Oral Now Diet [DIET] 10/23/20 19:05 HYDROmorphone/Normal Saline [Dilaudid [employer] 15 MG in NS 30 ML] 0 mg IV ASDIRECTED PRN 10/23/20 19:32 Dextrose 50% in Water 50 ml IVPUSH ASDIRECTED PRN Dextrose [Glutose 15] 15 gm PO ASDIRECTED PRN Glucagon,Human Recombinant [GlucaGen] 1 mg IM ASDIRECTED PRN Insulin Lispro [HumaLOG] 0 unit SUBCUT QID PRN 10/23/20 20:00 Naloxone [Narcan] 0.1 mg IV ASDIRECTED PRN Ondansetron [Zofran] 4 mg IV Q4H PRN Pantoprazole [ProTONIX IV] 40 mg IV Q24H 10/23/20 21:00 Docusate Sodium/Sennosides [Senna Plus] 1 tab PO BID 10/23/20 22:00 Acetaminophen [TylenoL] 650 mg PO Q6HR 10/24/20 07:30 Levothyroxine 112 mcg PO ACBREAKFAST 10/24/20 11:00 Albuterol/Ipratropium [DuoNeb 3.0-0.5 MG/3 ML] 3 ml INH QIDRT - Plan Plan:: ASSESSMENT AND PLAN - Acute cholecystitis-status post laparoscopic to open cholecystectomy on 10/23. Surgery complicated by bleeding probably related to how sick her gallbladder was as well as thrombocytopenia. She has been stable postoperatively. Pain control is acceptable but not optimal. -Antibiotic coverage with Pip/Tazo -Gentle IV fluids -symptomatic management of pain and nausea -Surgical consultation with Dr. Martin Leukopenia and thrombocytopenia-infection versus underlying hematologic malignancy. Levels are stable. -Peripheral smear pending Type 2 diabetes mellitus-controlled with oral medications. -Continue oral medications COPD-mild and stable. Maintenance issues - -DVT prophylaxis-mechanical -GI prophylaxis-not indicated -Nutrition-nothing by mouth -Oliver catheter-placed at the time of surgery for strict intake and output m onitoring in a critical patient Disposition -I anticipate discharge home after the hospital stay Nicholas Hunt M.D.
[2020-10-24] MEDS: HYDROmorphone/Normal Saline 15 MG/30 ML PCA IV PRN (11:40)
--- NOTE | 2020-10-24 13:32 | PCM.EKG ---
#1 Interpretation EKG Date: 10/23/20 Time: 15:03 Rhythm: NSR Rate (Beats/Min): 57 [place]: Normal P-Wave: Present QRS: Normal ST-T: Normal QT: Normal WI/PQ Interval: normal Comparison: NA - No Prior EKG
[2020-10-24] MEDS ORDERED: Lactated Ringers 500 ML IV ONE (15:45)
--- NOTE | 2020-10-24 16:01 | PN ---
DATE OF SERVICE: 10/24/2020 Patient has been afebrile with stable vital signs overnight. Her hemoglobin has been clinically stable after a second unit of packed RBCs, it was in the 13 range which is where it has remained overnight. The hemoglobin is 13.0 this morning. Platelets are up a little bit at 85,000, so we to give any platelets. There are no signs of any further bleeding. MARIJA drains are serous with no bile leak evident. Creatinine is also stable at 1.3 and urine output has been satisfactory. Blood sugar is a little bit high, we will add some Januvia back to the regimen today. Otherwise, she will be staying on sips of clear liquids and plan to proceed with delayed primary closure of the abdominal incision tomorrow and recheck some labs at that time as well. Otherwise, maximize activity and work with pulmonary toilet. Dickson Martin MD /[id number]
[2020-10-24] MEDS ORDERED: Lactated Ringers 750 ML IV ONE (18:00)
[2020-10-24 18:08] LABS: BANDS 2 % (Not Estab.); BASOS 0 % (Not Estab.); EOS 0 % (Not Estab.); HEMATOCRIT 44.5 % (34.0-46.6); HEMATOLOGY COMMENTS: Note: (.); HEMOGLOBIN 14.7 g/dL (11.1-15.9); IMMATURE CELLS Note (.); LYMPHS 10 % (Not Estab.); LYMPHS (ABSOLUTE) 0.3 x10E3/uL (0.7-3.1); MCH 28.6 pg (26.6-33.0); MCV 87 fL (79-97); MONOCYTES 33 % (Not Estab.); MONOCYTES(ABSOLUTE) 1.1 x10E3/uL (0.1-0.9); MYELOCYTES 1 % (0 - 0); NEUTROPHILS 54 % (Not Estab.); NEUTROPHILS (ABSOLUTE) 1.8 x10E3/uL (1.4-7.0); PLATELETS 72 x10E3/uL (150-450); RBC 5.14 x10E6/uL (3.77-5.28); RBC Appear normal. (.); RDW 14.1 % (11.7-15.4); WBC 3.2 x10E3/uL (3.4-10.8)
[2020-10-24] MEDS: Pantoprazole 40 MG Vial IV SCH (20:16)
[2020-10-24] MEDS: glipiZIDE 5 MG Tab PO SCH (23:23)
[2020-10-25] MEDS: Piperacillin/Tazobactam/Dext 3.375 GM in Premix Bag 1 BAG IV SCH ×4 (00:33→17:46)
[2020-10-25] MEDS: Insulin Lispro 100 Unit/ML 3 ML KwikPen SUBCUT PRN ×4 (02:13→20:24)
[2020-10-25] MEDS: Lactated Ringers 1,000 ML IV SCH ×2 (04:00→08:55)
[2020-10-25] MEDS: Acetaminophen 325 MG Tab PO SCH ×4 (05:44→21:49)
[2020-10-25] MEDS ORDERED: Bupivacaine 0.5% 50 ML MDV ONE (06:37)
[2020-10-25] MEDS ORDERED: Meropenem 500 MG SDV ONE (06:37)
[2020-10-25] MEDS ORDERED: Lidocaine 1% with EPINEPHrine 1:100,000 50 ML MDV ONE (06:37)
[2020-10-25] MEDS: Albuterol/Ipratropium 3.0-0.5 MG/3 ML Neb Soln INH SCH ×4 (07:02→20:24)
[2020-10-25] MEDS ORDERED: Propofol 200 MG/20 ML SDV ONE (07:11)
[2020-10-25] MEDS: Levothyroxine 112 MCG Tab PO SCH (08:46)
--- NOTE | 2020-10-25 09:34 | CR ---
Abdomen 1V Flat CLINICAL HISTORY: Instrument check FINDINGS: Portable study shows 2 surgical drains in the right upper quadrant. Intestinal gas pattern is nonspecific. There is some suture material in the right upper quadrant near the region of the gallbladder, otherwise no radiopaque foreign body seen. IMPRESSION: Surgical planes and surgical sutures right upper quadrant
[2020-10-25] MEDS: Docusate Sodium 100 MG Cap PO SCH ×2 (09:55→20:24)
[2020-10-25] MEDS: glipiZIDE 5 MG Tab PO SCH ×2 (09:57→14:44)
[2020-10-25] MEDS: Bisacodyl 5 MG Tab PO SCH ×2 (09:57→20:23)
[2020-10-25] MEDS ORDERED: Lactated Ringers 1,000 ML IV SCH (10:15)
[2020-10-25] MEDS ORDERED: Potassium Chloride 20 MEQ Tab.ER PO ONE (10:30)
--- NOTE | 2020-10-25 14:21 | PN ---
DATE OF SERVICE: 10/25/2020 The patient has been afebrile with stable vital signs. She has required some additional IV fluid to maintain urine output. Hemoglobin this morning is 10.9. Otherwise, she has had no nausea or vomiting. No flatus or bowel movement as of yet. She underwent a delayed primary closure of her abdominal incision today. Blood sugars are still running a little bit high. We will re-add the glipizide, start her on a full-liquid diet and some bowel stimulation and recheck some labs in the morning. I suspect she will probably fall below 10 tomorrow and likely need a unit of blood or so. Otherwise, maximize activity and work with pulmonary toilet. Dickson Martin MD /[id number]
--- NOTE | 2020-10-25 15:13 | OR ---
DATE OF PROCEDURE: 10/25/2020 SURGEON: Dickson Martin MD PREOPERATIVE DIAGNOSIS: Open abdominal incision. POSTOPERATIVE DIAGNOSIS: Open abdominal incision. PROCEDURE PERFORMED: Delayed primary closure of open abdominal incision. ANESTHESIA: Local plus IV sedation. INDICATIONS: The patient is now 48 hours status post open cholecystectomy for an infected gallbladder with significant intraoperative bleeding. The skin and subcutaneous tissue were felt to be at high risk for wound infection. These were closed primarily. Therefore, the wound was packed open for a planned delayed primary closure at this time. Potential risks including bleeding and infection were reviewed, and the patient wishes to proceed. DETAILS OF PROCEDURE: The patient was taken to the operating room and placed in a supine position. After IV sedation was administered, the operative dressing was taken down and the wound inspected and found to be clean. The wound was then prepped and draped and anesthetized with 1% lidocaine and irrigated with meropenem-containing saline solution. The main incision, which was the right subcostal incision, was then closed with 2 layers of 3-0 and 4-0 Vicryl stitch deep and cortes for the skin. The patient had an additional laparoscopic trocar site in the periumbilical area which was closed with skin cortes, and transversus abdominis plane blocks were placed, both of these on the right side given the right subcostal incision, and the patient was taken to the recovery room in satisfactory condition. There were no evident complications. Dickson Martin MD /[id number]
--- NOTE | 2020-10-25 16:07 | PCM.PN ---
- General Info Date of Service: 10/25/20 Subjective Update: No acute events overnight. Abdominal pain is a fair amount better today but not resolved. She feels weak and tired. Tolerating liquids. No fevers. Hemoglobi n slightly lower today but still greater than 10. Functional Status: Reports: Pain Controlled - Patient Data Vitals - Most Recent: Last Vital Signs Temp 36.5 C 10/25/20 08:20 Pulse 67 10/25/20 14:19 Resp 16 10/25/20 10:01 BP 116/44 L 10/25/20 10:01 Pulse Ox 97 10/25/20 10:01 Weight - Most Recent: 86.183 kg I&O - Last 24 Hours: Intake & Output 10/25/20 10/25/20 10/25/20 06:59 14:59 22:59 Intake Total 1471 75 Output Total 1020 310 Balance 451 -235 Lab Results Last 24 Hours: Laboratory Results - last 24 hr 10/23/20 10/24/20 10/24/20 Range/Units 13:23 16:05 20:15 WBC (4.5-11.0) K/uL WBC (Send Out) 3.2 L (3.4-10.8) x10E3/uL RBC (3.30-5.50) M/uL RBC (Send Out) 5.14 (3.77-5.28) x10E6/uL Hgb 12.4 (12.0-15.0) g/dL Hgb (Send Out) 14.7 (11.1-15.9) g/dL Hct (36.0-48.0) % Hct (Send Out) 44.5 (34.0-46.6) % MCV (80-98) fL MCV (Send Out) 87 (79-97) fL MCH (27-31) pg MCH (Send Out) 28.6 (26.6-33.0) pg MCHC (32-36) % MCHC (Send Out) 33.0 (31.5-35.7) g/dL Red Cell Dist (Send Out) 14.1 (11.7-15.4) % Plt Count (150-400) K/uL Plt Count (Send Out) 72 L (150-450) x10E3/uL Diff Scan See below. (.) Immature Gran % TNP Neutrophils % Send Out 54 (Not Estab.) % Band Neutrophils % 2 (Not Estab.) % Lymphocytes % (Send Out) 10 (Not Estab.) % Monocytes % (Send Out) 33 (Not Estab.) % Eosinophils % Send Out 0 (Not Estab.) % Basophils % (Send Out) 0 (Not Estab.) % Metamyelocytes % TNP Myelocytes % 1 H (0 - 0) % Promyelocytes % TNP Blast Cells % TNP Megakaryocytes % TNP Other Cells % TNP Immature Gran # TNP Neutrophils # (Send Out) 1.8 (1.4-7.0) x10E3/uL Lymphocytes # (Send Out) 0.3 L (0.7-3.1) x10E3/uL Monocytes #(Send Out) 1.1 H (0.1-0.9) x10E3/uL Eosinophils # Send Out 0.0 (0.0-0.4) x10E3/uL Basophils # (Send Out) 0.0 (0.0-0.2) x10E3/uL Nucleated RBCs Send Out TNP Immature Cells Send Out Note (.) Platelet Morphology Comment H (.) RBC Morphology Appear normal. (.) Peripher Smr Path Cons TNP Smear Path Review Comment (.) Hematology Comments Note: (.) Sodium (140-148) mmol/L Potassium (3.6-5.2) mmol/L Chloride (100-108) mmol/L Carbon Dioxide (21-32) mmol/L Anion Gap (5.0-14.0) mmol/L BUN (7-18) mg/dL Creatinine (0.6-1.0) mg/dL Est Cr Clr Drug Dosing mL/min Estimated GFR (MDRD) (>60) Glucose (74-106) mg/dL POC Glucose 211 H (74-106) mg/dL Calcium (8.5-10.1) mg/dL Phosphorus (2.5-4.9) mg/dL Magnesium (1.8-2.4) mg/dL Total Bilirubin (0.2-1.0) mg/dL AST (15-37) U/L ALT (12-78) U/L Alkaline Phosphatase (46-116) U/L NT-Pro-B Natriuret Pep (5-450) pg/mL Total Protein (6.4-8.2) g/dL Albumin (3.4-5.0) g/dL Globulin (2.3-3.5) g/dL Albumin/Globulin Ratio (1.2-2.2) 10/25/20 10/25/20 10/25/20 Range/Units 02:10 04:28 04:28 WBC 6.9 (4.5-11.0) K/uL WBC (Send Out) (3.4-10.8) x10E3/uL RBC 3.79 (3.30-5.50) M/uL RBC (Send Out) (3.77-5.28) x10E6/uL Hgb 10.9 L (12.0-15.0) g/dL Hgb (Send Out) (11.1-15.9) g/dL Hct 33.5 L (36.0-48.0) % Hct (Send Out) (34.0-46.6) % MCV 88 (80-98) fL MCV (Send Out) (79-97) fL MCH 29 (27-31) pg MCH (Send Out) (26.6-33.0) pg MCHC 33 (32-36) % MCHC (Send Out) (31.5-35.7) g/dL Red Cell Dist (Send Out) (11.7-15.4) % Plt Count 112 L (150-400) K/uL Plt Count (Send Out) (150-450) x10E3/uL Diff Scan (.) Immature Gran % Neutrophils % Send Out (Not Estab.) % Band Neutrophils % (Not Estab.) % Lymphocytes % (Send Out) (Not Estab.) % Monocytes % (Send Out) (Not Estab.) % Eosinophils % Send Out (Not Estab.) % Basophils % (Send Out) (Not Estab.) % Metamyelocytes % Myelocytes % (0 - 0) % Promyelocytes % Blast Cells % Megakaryocytes % Other Cells % Immature Gran # Neutrophils # (Send Out) (1.4-7.0) x10E3/uL Lymphocytes # (Send Out) (0.7-3.1) x10E3/uL Monocytes #(Send Out) (0.1-0.9) x10E3/uL Eosinophils # Send Out (0.0-0.4) x10E3/uL Basophils # (Send Out) (0.0-0.2) x10E3/uL Nucleated RBCs Send Out Immature Cells Send Out (.) Platelet Morphology (.) RBC Morphology (.) Peripher Smr Path Cons Smear Path Review (.) Hematology Comments (.) Sodium 140 (140-148) mmol/L Potassium 3.5 L (3.6-5.2) mmol/L Chloride 102 (100-108) mmol/L Carbon Dioxide 29 (21-32) mmol/L Anion Gap 12.5 (5.0-14.0) mmol/L BUN 30 H (7-18) mg/dL Creatinine 1.4 H (0.6-1.0) mg/dL Est Cr Clr Drug Dosing 31.20 mL/min Estimated GFR (MDRD) 37 L (>60) Glucose 193 H (74-106) mg/dL POC Glucose 225 H (74-106) mg/dL Calcium 8.2 L (8.5-10.1) mg/dL Phosphorus 3.0 (2.5-4.9) mg/dL Magnesium 1.9 (1.8-2.4) mg/dL Total Bilirubin 0.8 (0.2-1.0) mg/dL AST 255 H (15-37) U/L ALT 222 H (12-78) U/L Alkaline Phosphatase 237 H (46-116) U/L NT-Pro-B Natriuret Pep 304 (5-450) pg/mL Total Protein 4.7 L (6.4-8.2) g/dL Albumin 2.1 L (3.4-5.0) g/dL Globulin 2.6 (2.3-3.5) g/dL Albumin/Globulin Ratio 0.8 L (1.2-2.2) 10/25/20 10/25/20 Range/Units 08:12 14:39 WBC (4.5-11.0) K/uL WBC (Send Out) (3.4-10.8) x10E3/uL RBC (3.30-5.50) M/uL RBC (Send Out) (3.77-5.28) x10E6/uL Hgb (12.0-15.0) g/dL Hgb (Send Out) (11.1-15.9) g/dL Hct (36.0-48.0) % Hct (Send Out) (34.0-46.6) % MCV (80-98) fL MCV (Send Out) (79-97) fL MCH (27-31) pg MCH (Send Out) (26.6-33.0) pg MCHC (32-36) % MCHC (Send Out) (31.5-35.7) g/dL Red Cell Dist (Send Out) (11.7-15.4) % Plt Count (150-400) K/uL Plt Count (Send Out) (150-450) x10E3/uL Diff Scan (.) Immature Gran % Neutrophils % Send Out (Not Estab.) % Band Neutrophils % (Not Estab.) % Lymphocytes % (Send Out) (Not Estab.) % Monocytes % (Send Out) (Not Estab.) % Eosinophils % Send Out (Not Estab.) % Basophils % (Send Out) (Not Estab.) % Metamyelocytes % Myelocytes % (0 - 0) % Promyelocytes % Blast Cells % Megakaryocytes % Other Cells % Immature Gran # Neutrophils # (Send Out) (1.4-7.0) x10E3/uL Lymphocytes # (Send Out) (0.7-3.1) x10E3/uL Monocytes #(Send Out) (0.1-0.9) x10E3/uL Eosinophils # Send Out (0.0-0.4) x10E3/uL Basophils # (Send Out) (0.0-0.2) x10E3/uL Nucleated RBCs Send Out Immature Cells Send Out (.) Platelet Morphology (.) RBC Morphology (.) Peripher Smr Path Cons Smear Path Review (.) Hematology Comments (.) Sodium (140-148) mmol/L Potassium (3.6-5.2) mmol/L Chloride (100-108) mmol/L Carbon Dioxide (21-32) mmol/L Anion Gap (5.0-14.0) mmol/L BUN (7-18) mg/dL Creatinine (0.6-1.0) mg/dL Est Cr Clr Drug Dosing mL/min Estimated GFR (MDRD) (>60) Glucose (74-106) mg/dL POC Glucose 203 H 281 H (74-106) mg/dL Calcium (8.5-10.1) mg/dL Phosphorus (2.5-4.9) mg/dL Magnesium (1.8-2.4) mg/dL Total Bilirubin (0.2-1.0) mg/dL AST (15-37) U/L ALT (12-78) U/L Alkaline Phosphatase (46-116) U/L NT-Pro-B Natriuret Pep (5-450) pg/mL Total Protein (6.4-8.2) g/dL Albumin (3.4-5.0) g/dL Globulin (2.3-3.5) g/dL Albumin/Globulin Ratio (1.2-2.2) Med Orders - Current: Current Medications Acetaminophen (Acetaminophen 325 Mg Tab) 650 mg PO Q6HR [facility] Last Admin: 10/25/20 10:05 Dose: 650 mg Documented by: Albuterol/Ipratropium (Albuterol/Ipratropium 3.0-0.5 Mg/3 Ml Neb Soln) 3 ml INH QIDRT [facility] Last Admin: 10/25/20 14:19 Dose: 3 ml Documented by: Albuterol/Ipratropium (Albuterol/Ipratropium 3.0-0.5 Mg/3 Ml Neb Soln) 3 ml INH Q4H PRN PRN Reason: BREATHING Alogliptin Benzoate (Alogliptin 12.5 Mg Tab) 12.5 mg PO DAILY [facility] Last Admin: 10/25/20 08:46 Dose: 12.5 mg Documented by: Bisacodyl (Bisacodyl 5 Mg Tab) 10 mg PO BID [facility] Last Admin: 10/25/20 09:57 Dose: 10 mg Documented by: Dextrose (Glucose Gel 15 Gm In 37.5 Gm Tube) 15 gm PO ASDIRECTED PRN PRN Reason: HYPOGLYCEMIA Dextrose/Water (50% Dextrose In Water 50 Ml Syringe) 50 ml IVPUSH ASDIRECTED PRN PRN Reason: HYPOGLYCEMIA Docusate Sodium (Docusate Sodium 100 Mg Cap) 100 mg PO BID [facility] Last Admin: 10/25/20 09:55 Dose: 100 mg Documented by: Glipizide (Glipizide 5 Mg Tab) 5 mg PO BIDAC [facility] Last Admin: 10/25/20 09:57 Dose: 5 mg Documented by: Glucagon (Glucagon,Human Recombinant 1 Mg Vial) 1 mg IM ASDIRECTED PRN PRN Reason: HYPOGLYCEMIA Hydromorphone HCl (Hydromorphone/Normal Saline 15 Mg/30 Ml Cleaner Greaser) 0 mg IV ASDIRECTED PRN; Protocol PRN Reason: DISPATCHER [place] PAIN CONTROL Last Admin: 10/24/20 11:40 Dose: 15 mg Documented by: Piperacillin/Tazobactam/ (Dextrose 3.375 gm/ Premix) 50 mls @ 100 mls/hr IV Q6H [facility] Last Admin: 10/25/20 12:45 Dose: 100 mls/hr Documented by: Lactated Ringer's (Ringers, Lactated) 1,000 mls @ 25 mls/hr IV ASDIRECTED [facility] Insulin Human Lispro (Insulin Lispro 100 Unit/Ml 3 Ml Kwikpen) 0 unit SUBCUT QID PRN; Protocol PRN Reason: MEDIUM CORRECTIONAL DOSING Last Admin: 10/25/20 14:43 Dose: 5 units Documented by: Levothyroxine Sodium (Levothyroxine 112 Mcg Tab) 112 mcg PO ACBREAKFAST [facility] Last Admin: 10/25/20 08:46 Dose: 112 mcg Documented by: Naloxone HCl (Naloxone 0.4 Mg/Ml Sdv) 0.1 mg IV ASDIRECTED PRN PRN Reason: decreased respiratory rate Ondansetron HCl (Ondansetron 4 Mg/2 Ml Sdv) 4 mg IV Q4H PRN PRN Reason: Nausea/Vomiting Pantoprazole Sodium (Pantoprazole 40 Mg Vial) 40 mg IV Q24H [facility] Last Admin: 10/24/20 20:16 Dose: 40 mg Documented by: Senna/Docusate Sodium (Docusate Sodium/Sennosides 50-8.6 Mg Tab) 1 tab PO BID [facility] Last Admin: 10/25/20 08:49 Dose: 1 tab Documented by: Sodium Chloride (Sodium Chloride 0.9% 10 Ml Syringe) 10 ml FLUSH ASDIRECTED PRN PRN Reason: Keep Vein Open Discontinued Medications Acetaminophen (Acetaminophen 325 Mg Tab) 650 mg PO Q4H PRN PRN Reason: Pain (Mild 1-3)/fever Albuterol (Albuterol 0.083% 2.5 Mg/3 Ml Neb Soln) 2.5 mg NEB Q4H PRN PRN Reason: Shortness Of Breath/wheezing Last Admin: 10/23/20 15:14 Dose: 2.5 mg Documented by: Albuterol/Ipratropium (Albuterol/Ipratropium 3.0-0.5 Mg/3 Ml Neb Soln) 3 ml INH Q4H [facility] Last Admin: 10/24/20 04:00 Dose: 3 ml Documented by: Alogliptin Benzoate (Alogliptin 12.5 Mg Tab) 12.5 mg PO DAILY [facility] Aspirin (Aspirin 81 Mg Tab.Chew) 81 mg PO DAILY [facility] Atorvastatin Calcium (Atorvastatin 10 Mg Tab) 10 mg PO BEDTIME [facility] Last Admin: 10/23/20 23:09 Dose: Not Given Documented by: Bupivacaine HCl (Bupivacaine 0.5% 50 Ml Mdv) Confirm Administered Dose 50 ml .ROUTE .STK-MED ONE Stop: 10/25/20 06:38 Last Admin: 10/25/20 07:42 Dose: 20 ml Documented by: Bupivacaine HCl/Epinephrine Bitart (Bupivacaine 0.5%/Epinephrine 1:200,000 50 Ml Mdv) Confirm Administered Dose 50 ml .ROUTE .STK-MED ONE Stop: 10/23/20 15:04 Last Admin: 10/23/20 17:15 Dose: 20 ml Documented by: Ropivacaine 43 ml/Dexamethasone 8 mg/Epinephrine HCl 0.4 mg/ Sodium Chloride 34.6 ml 0 ml NERVRT ASDIRECTED [facility] Last Admin: 10/23/20 15:53 Dose: 80 syringe Documented by: Ropivacaine 43 ml/Dexamethasone 8 mg/Epinephrine HCl 0.4 mg/ Sodium Chloride 34.6 ml 0 ml NERVRT ASDIRECTED [facility] Last Admin: 10/25/20 07:40 Dose: 80 syringe Documented by: Dexamethasone (Dexamethasone 4 Mg/Ml Sdv) Confirm Administered Dose 4 mg .ROUTE .STK-MED ONE Stop: 10/23/20 14:52 Fentanyl (Fentanyl 250 Mcg/5 Ml Sdv) Confirm Administered Dose 250 mcg .ROUTE .STK-MED ONE Stop: 10/23/20 14:52 Glipizide (Glipizide 5 Mg Tab) 5 mg PO BIDAC [facility] Last Admin: 10/24/20 23:23 Dose: Not Given Documented by: Glycopyrrolate (Glycopyrrolate 0.2 Mg/Ml 5 Ml Mdv) Confirm Administered Dose 1 mg .ROUTE .STK-MED ONE Stop: 10/23/20 14:52 Hydromorphone HCl (Hydromorphone 0.5 Mg/0.5 Ml Syringe) 0.5 mg IVPUSH Q2H PRN PRN Reason: Pain (severe 7-10) Last Admin: 10/24/20 07:31 Dose: 0.5 mg Documented by: Piperacillin Sod/Tazobactam (Sod 3.375 gm/ Sodium Chloride) 50 mls @ 100 mls/hr IV Q6H [facility] Lactated Ringer's (Ringers, Lactated) 1,000 mls @ 100 mls/hr IV ASDIRECTED [facility] Last Admin: 10/24/20 18:06 Dose: 100 mls/hr Documented by: Lactated Ringer's (Ringers, Lactated) 500 mls @ 999 mls/hr IV ASDIRECTED [facility] Stop: 10/23/20 13:16 Lactated Ringer's (Ringers, Lactated) Confirm Administered Dose 1,000 mls @ as directed .ROUTE .STK-MED ONE Stop: 10/23/20 15:59 Sodium Chloride (Normal Saline) Confirm Administered Dose 10 mls @ as directed .ROUTE .STK-MED ONE Stop: 10/23/20 16:51 Lactated Ringer's (Ringers, Lactated) 500 mls @ 500 mls/hr IV BOLUS ONE Stop: 10/24/20 16:44 Last Admin: 10/24/20 15:44 Dose: 500 mls/hr Documented by: Lactated Ringer's (Ringers, Lactated) 750 mls @ 999 mls/hr IV ONETIME ONE Stop: 10/24/20 18:45 Last Admin: 10/24/20 17:58 Dose: 999 mls/hr Documented by: Lactated Ringer's (Ringers, Lactated) 1,000 mls @ 125 mls/hr IV ASDIRECTED [facility] Last Admin: 10/25/20 08:55 Dose: 125 mls/hr Documented by: Lactobacillus Rhamnosus (Lactobacillus Rhamnosus Gg (Probiotic) Cap) 1 cap PO BID [facility] Last Admin: 10/23/20 23:09 Dose: Not Given Documented by: Lidocaine/Epinephrine (Lidocaine 1% With Epinephrine 1:100,000 50 Ml Mdv) C onfirm Administered Dose 50 ml .ROUTE .STK-MED ONE Stop: 10/25/20 06:38 Last Admin: 10/25/20 07:42 Dose: 20 ml Documented by: Lorazepam (Lorazepam 2 Mg/Ml Sdv) 0.5 mg IVPUSH Q4H PRN PRN Reason: Nausea/Vomiting Magnesium Hydroxide (Magnesium Hydroxide 400 Mg/5 Ml Susp 30 Ml Cup) 30 ml PO Q12H PRN PRN Reason: Constipation Meropenem (Meropenem 500 Mg Sdv) Confirm Administered Dose 500 mg .ROUTE .STK- MED ONE Stop: 10/23/20 16:51 Last Admin: 10/23/20 17:02 Dose: 500 mg Documented by: Meropenem (Meropenem 500 Mg Sdv) Confirm Administered Dose 500 mg .ROUTE .STK- MED ONE Stop: 10/23/20 16:55 Meropenem (Meropenem 500 Mg Sdv) Confirm Administered Dose 500 mg .ROUTE .STK- MED ONE Stop: 10/25/20 06:38 Last Admin: 10/25/20 07:44 Dose: 500 mg Documented by: Neostigmine Methylsulfate (Neostigmine Methylsulfate 1 Mg/Ml 5 Ml Syringe) Confirm Administered Dose 5 mg .ROUTE .STK-MED ONE Stop: 10/23/20 14:52 Non-Formulary Medication (Pioglitazone Hcl [Pioglitazone Hcl]) 45 mg PO DAILY [facility] Ondansetron HCl (Ondansetron 4 Mg/2 Ml Sdv) 4 mg IV Q6H PRN PRN Reason: Nausea/Vomiting Ondansetron HCl (Ondansetron 4 Mg Tab.Dis) 4 mg PO Q6H PRN PRN Reason: Nausea able to take PO Ondansetron HCl (Ondansetron 4 Mg/2 Ml Sdv) Confirm Administered Dose 4 mg .ROUTE .STK-MED ONE Stop: 10/23/20 14:52 Oxycodone HCl (Oxycodone 5 Mg Tab) 5 - 10 mg PO Q4H PRN PRN Reason: Pain Last Admin: 10/24/20 04:30 Dose: 5 mg Documented by: Potassium Chloride (Potassium Chloride 20 Meq Tab.Er) 40 meq PO ONETIME ONE Stop: 10/25/20 10:31 Last Admin: 10/25/20 10:38 Dose: 40 meq Documented by: Propofol (Propofol 200 Mg/20 Ml Sdv) Confirm Administered Dose 200 mg .ROUTE .STK-MED ONE Stop: 10/23/20 14:52 Propofol (Propofol 200 Mg/20 Ml Sdv) Confirm Administered Dose 200 mg .ROUTE .STK-MED ONE Stop: 10/25/20 07:12 Rocuronium [place] (Rocuronium 50 Mg/5 Ml Vial) Confirm Administered Dose 50 mg .ROUTE .STK-MED ONE Stop: 10/23/20 14:52 Senna/Docusate Sodium (Docusate Sodium/Sennosides 50-8.6 Mg Tab) 1 tab PO BID PRN PRN Reason: Constipation Succinylcholine Chloride (Succinylcholine 200 Mg/10 Ml Mdv) Confirm Administered Dose 200 mg .ROUTE .STK-MED ONE Stop: 10/23/20 14:52 Trazodone HCl (Trazodone 50 Mg Tab) 50 mg PO BEDTIME [facility] Last Admin: 10/23/20 23:08 Dose: Not Given Documented by: - Exam Quality Assessment: Supplemental Oxygen Urinary Catheter Total Time: 1Days 2Hours General: Alert, Oriented, Cooperative, No Acute Distress Lungs: Clear to Auscultation, Normal Respiratory Effort Cardiovascular: Regular Rate, Regular Rhythm GI/Abdominal Exam: Soft, No Distention Extremities: No Pedal Edema. No: Increased Warmth Skin: Warm, Dry Psy/Mental Status: Alert, Normal Affect - Patient Data Lab Results Last 24 hrs: Laboratory Results - last 24 hr 10/23/20 10/24/20 10/24/20 Range/Units 13:23 16:05 20:15 WBC (4.5-11.0) K/uL WBC (Send Out) 3.2 L (3.4-10.8) x10E3/uL RBC (3.30-5.50) M/uL RBC (Send Out) 5.14 (3.77-5.28) x10E6/uL Hgb 12.4 (12.0-15.0) g/dL Hgb (Send Out) 14.7 (11.1-15.9) g/dL Hct (36.0-48.0) % Hct (Send Out) 44.5 (34.0-46.6) % MCV (80-98) fL MCV (Send Out) 87 (79-97) fL MCH (27-31) pg MCH (Send Out) 28.6 (26.6-33.0) pg MCHC (32-36) % MCHC (Send Out) 33.0 (31.5-35.7) g/dL Red Cell Dist (Send Out) 14.1 (11.7-15.4) % Plt Count (150-400) K/uL Plt Count (Send Out) 72 L (150-450) x10E3/uL Diff Scan See below. (.) Immature Gran % TNP Neutrophils % Send Out 54 (Not Estab.) % Band Neutrophils % 2 (Not Estab.) % Lymphocytes % (Send Out) 10 (Not Estab.) % Monocytes % (Send Out) 33 (Not Estab.) % Eosinophils % Send Out 0 (Not Estab.) % Basophils % (Send Out) 0 (Not Estab.) % Metamyelocytes % TNP Myelocytes % 1 H (0 - 0) % Promyelocytes % TNP Blast Cells % TNP Megakaryocytes % TNP Other Cells % TNP Immature Gran # TNP Neutrophils # (Send Out) 1.8 (1.4-7.0) x10E3/uL Lymphocytes # (Send Out) 0.3 L (0.7-3.1) x10E3/uL Monocytes #(Send Out) 1.1 H (0.1-0.9) x10E3/uL Eosinophils # Send Out 0.0 (0.0-0.4) x10E3/uL Basophils # (Send Out) 0.0 (0.0-0.2) x10E3/uL Nucleated RBCs Send Out TNP Immature Cells Send Out Note (.) Platelet Morphology Comment H (.) RBC Morphology Appear normal. (.) Peripher Smr Path Cons TNP Smear Path Review Comment (.) Hematology Comments Note: (.) Sodium (140-148) mmol/L Potassium (3.6-5.2) mmol/L Chloride (100-108) mmol/L Carbon Dioxide (21-32) mmol/L Anion Gap (5.0-14.0) mmol/L BUN (7-18) mg/dL Creatinine (0.6-1.0) mg/dL Est Cr Clr Drug Dosing mL/min Estimated GFR (MDRD) (>60) Glucose (74-106) mg/dL POC Glucose 211 H (74-106) mg/dL Calcium (8.5-10.1) mg/dL Phosphorus (2.5-4.9) mg/dL Magnesium (1.8-2.4) mg/dL Total Bilirubin (0.2-1.0) mg/dL AST (15-37) U/L ALT (12-78) U/L Alkaline Phosphatase (46-116) U/L NT-Pro-B Natriuret Pep (5-450) pg/mL Total Protein (6.4-8.2) g/dL Albumin (3.4-5.0) g/dL Globulin (2.3-3.5) g/dL Albumin/Globulin Ratio (1.2-2.2) 10/25/20 10/25/20 10/25/20 Range/Units 02:10 04:28 04:28 WBC 6.9 (4.5-11.0) K/uL WBC (Send Out) (3.4-10.8) x10E3/uL RBC 3.79 (3.30-5.50) M/uL RBC (Send Out) (3.77-5.28) x10E6/uL Hgb 10.9 L (12.0-15.0) g/dL Hgb (Send Out) (11.1-15.9) g/dL Hct 33.5 L (36.0-48.0) % Hct (Send Out) (34.0-46.6) % MCV 88 (80-98) fL MCV (Send Out) (79-97) fL MCH 29 (27-31) pg MCH (Send Out) (26.6-33.0) pg MCHC 33 (32-36) % MCHC (Send Out) (31.5-35.7) g/dL Red Cell Dist (Send Out) (11.7-15.4) % Plt Count 112 L (150-400) K/uL Plt Count (Send Out) (150-450) x10E3/uL Diff Scan (.) Immature Gran % Neutrophils % Send Out (Not Estab.) % Band Neutrophils % (Not Estab.) % Lymphocytes % (Send Out) (Not Estab.) % Monocytes % (Send Out) (Not Estab.) % Eosinophils % Send Out (Not Estab.) % Basophils % (Send Out) (Not Estab.) % Metamyelocytes % Myelocytes % (0 - 0) % Promyelocytes % Blast Cells % Megakaryocytes % Other Cells % Immature Gran # Neutrophils # (Send Out) (1.4-7.0) x10E3/uL Lymphocytes # (Send Out) (0.7-3.1) x10E3/uL Monocytes #(Send Out) (0.1-0.9) x10E3/uL Eosinophils # Send Out (0.0-0.4) x10E3/uL Basophils # (Send Out) (0.0-0.2) x10E3/uL Nucleated RBCs Send Out Immature Cells Send Out (.) Platelet Morphology (.) RBC Morphology (.) Peripher Smr Path Cons Smear Path Review (.) Hematology Comments (.) Sodium 140 (140-148) mmol/L Potassium 3.5 L (3.6-5.2) mmol/L Chloride 102 (100-108) mmol/L Carbon Dioxide 29 (21-32) mmol/L Anion Gap 12.5 (5.0-14.0) mmol/L BUN 30 H (7-18) mg/dL Creatinine 1.4 H (0.6-1.0) mg/dL Est Cr Clr Drug Dosing 31.20 mL/min Estimated GFR (MDRD) 37 L (>60) Glucose 193 H (74-106) mg/dL POC Glucose 225 H (74-106) mg/dL Calcium 8.2 L (8.5-10.1) mg/dL Phosphorus 3.0 (2.5-4.9) mg/dL Magnesium 1.9 (1.8-2.4) mg/dL Total Bilirubin 0.8 (0.2-1.0) mg/dL AST 255 H (15-37) U/L ALT 222 H (12-78) U/L Alkaline Phosphatase 237 H (46-116) U/L NT-Pro-B Natriuret Pep 304 (5-450) pg/mL Total Protein 4.7 L (6.4-8.2) g/dL Albumin 2.1 L (3.4-5.0) g/dL Globulin 2.6 (2.3-3.5) g/dL Albumin/Globulin Ratio 0.8 L (1.2-2.2) 10/25/20 10/25/20 Range/Units 08:12 14:39 WBC (4.5-11.0) K/uL WBC (Send Out) (3.4-10.8) x10E3/uL RBC (3.30-5.50) M/uL RBC (Send Out) (3.77-5.28) x10E6/uL Hgb (12.0-15.0) g/dL Hgb (Send Out) (11.1-15.9) g/dL Hct (36.0-48.0) % Hct (Send Out) (34.0-46.6) % MCV (80-98) fL MCV (Send Out) (79-97) fL MCH (27-31) pg MCH (Send Out) (26.6-33.0) pg MCHC (32-36) % MCHC (Send Out) (31.5-35.7) g/dL Red Cell Dist (Send Out) (11.7-15.4) % Plt Count (150-400) K/uL Plt Count (Send Out) (150-450) x10E3/uL Diff Scan (.) Immature Gran % Neutrophils % Send Out (Not Estab.) % Band Neutrophils % (Not Estab.) % Lymphocytes % (Send Out) (Not Estab.) % Monocytes % (Send Out) (Not Estab.) % Eosinophils % Send Out (Not Estab.) % Basophils % (Send Out) (Not Estab.) % Metamyelocytes % Myelocytes % (0 - 0) % Promyelocytes % Blast Cells % Megakaryocytes % Other Cells % Immature Gran # Neutrophils # (Send Out) (1.4-7.0) x10E3/uL Lymphocytes # (Send Out) (0.7-3.1) x10E3/uL Monocytes #(Send Out) (0.1-0.9) x10E3/uL Eosinophils # Send Out (0.0-0.4) x10E3/uL Basophils # (Send Out) (0.0-0.2) x10E3/uL Nucleated RBCs Send Out Immature Cells Send Out (.) Platelet Morphology (.) RBC Morphology (.) Peripher Smr Path Cons Smear Path Review (.) Hematology Comments (.) Sodium (140-148) mmol/L Potassium (3.6-5.2) mmol/L Chloride (100-108) mmol/L Carbon Dioxide (21-32) mmol/L Anion Gap (5.0-14.0) mmol/L BUN (7-18) mg/dL Creatinine (0.6-1.0) mg/dL Est Cr Clr Drug Dosing mL/min Estimated GFR (MDRD) (>60) Glucose (74-106) mg/dL POC Glucose 203 H 281 H (74-106) mg/dL Calcium (8.5-10.1) mg/dL Phosphorus (2.5-4.9) mg/dL Magnesium (1.8-2.4) mg/dL Total Bilirubin (0.2-1.0) mg/dL AST (15-37) U/L ALT (12-78) U/L Alkaline Phosphatase (46-116) U/L NT-Pro-B Natriuret Pep (5-450) pg/mL Total Protein (6.4-8.2) g/dL Albumin (3.4-5.0) g/dL Globulin (2.3-3.5) g/dL Albumin/Globulin Ratio (1.2-2.2) Result Diagrams: 10/25/20 04:28 10/25/20 04:28 Sepsis Event Note - Evaluation Sepsis Screening Result: No Definite Risk - Focused Exam Vital Signs: Vital Signs Temp Pulse Resp BP Pulse Ox 10/25/20 14:19 67 10/25/20 10:50 73 10/25/20 10:01 88 16 116/44 L 97 10/25/20 08:20 36.5 C 100 14 136/59 L 93 L 10/25/20 08:15 100 14 139/61 96 10/25/20 08:10 100 14 143/61 H 95 10/25/20 08:05 102 H 14 138/66 96 10/25/20 08:00 36.6 C 113 H 14 147/68 H 97 10/25/20 07:15 36.8 C 62 17 158/59 H 98 10/25/20 07:03 65 10/25/20 05:57 12 136/48 L 98 - Problem List & Annotations (1) Acute cholecystitis without calculus SNOMED Code(s): 63836963 Code(s): K81.0 - ACUTE CHOLECYSTITIS Status: Acute Current Visit: Yes (2) Leukopenia SNOMED Code(s): 75813824, 354879895 Code(s): D72.819 - DECREASED WHITE BLOOD CELL COUNT, UNSPECIFIED Status: Acute Current Visit: Yes Qualifiers: Leukopenia type: unspecified Qualified Code(s): D72.819 - Decreased white blood cell count, unspecified (3) Thrombocytopenia SNOMED Code(s): 947405051 Code(s): D69.6 - THROMBOCYTOPENIA, UNSPECIFIED Status: Acute Current Visit: Yes (4) Type 2 diabetes mellitus SNOMED Code(s): 99968697 Code(s): E11.9 - TYPE 2 DIABETES MELLITUS WITHOUT COMPLICATIONS Status: Chronic Current Visit: Yes Qualifiers: Diabetes mellitus care home insulin use: without care home use Diabetes mellitus complication status: without complication Qualified Code(s): E11.9 - Type 2 diabetes mellitus without complications (5) COPD (chronic obstructive pulmonary disease) SNOMED Code(s): 35553927 Code(s): J44.9 - CHRONIC OBSTRUCTIVE PULMONARY DISEASE, UNSPECIFIED Status: Chronic Current Visit: Yes Qualifiers: COPD type: unspecified COPD Qualified Code(s): J44.9 - Chronic obstructive pulmonary disease, unspecified - Problem List Review Problem List Initiated/Reviewed/Updated: Yes - My Orders Last 24 Hours: My Active Orders 10/25/20 10:02 Transfer Patient (Change bed) [ADT] Routine 10/25/20 10:03 PT Evaluation and Treatment [CONS] Routine 10/25/20 10:15 Lactated Ringers [Ringers, Lactated] 1,000 ml IV ASDIRECTED - Plan Plan:: ASSESSMENT AND PLAN - Acute cholecystitis-status post laparoscopic to open cholecystectomy on 10/23. Pain control much better today. Vital signs are stable and overall she is doing fairly well. -Antibiotic coverage with Pip/Tazo -Saline lock IV -symptomatic management of pain and nausea -Surgical follow-up per Dr. Martin Leukopenia and thrombocytopenia-most likely related to infection versus less likely underlying hematologic malignancy. Levels are improving with management of infection -Peripheral smear pending Type 2 diabetes mellitus-controlled with oral medications. -Continue oral medications -Low-dose sliding scale insulin COPD-mild and stable. Maintenance issues - -DVT prophylaxis-mechanical -GI prophylaxis-not indicated -Nutrition-full liquids -Oliver catheter-placed at the time of surgery for strict intake and output monitoring in a critical patient Disposition -I anticipate discharge home after the hospital stay Nicholas Hunt M.D.
[2020-10-25] MEDS: Pantoprazole 40 MG Vial IV SCH (20:23)
[2020-10-26] MEDS: Piperacillin/Tazobactam/Dext 3.375 GM in Premix Bag 1 BAG IV SCH ×5 (00:18→23:41)
[2020-10-26] MEDS: Insulin Lispro 100 Unit/ML 3 ML KwikPen SUBCUT PRN ×3 (02:51→19:44)
[2020-10-26] MEDS: Acetaminophen 325 MG Tab PO SCH ×4 (03:37→21:14)
[2020-10-26] MEDS: Albuterol/Ipratropium 3.0-0.5 MG/3 ML Neb Soln INH SCH ×4 (07:18→21:14)
[2020-10-26] MEDS: HYDROmorphone/Normal Saline 15 MG/30 ML PCA IV PRN (08:03)
[2020-10-26] MEDS: Levothyroxine 112 MCG Tab PO SCH (08:09)
[2020-10-26] MEDS: glipiZIDE 5 MG Tab PO SCH ×2 (08:10→16:10)
[2020-10-26] MEDS: Potassium Phos in 0.9 % NaCl 250 ML IV SCH ×3 (08:53→19:13)
[2020-10-26] MEDS: Docusate Sodium 100 MG Cap PO SCH ×2 (08:57→21:13)
[2020-10-26] MEDS: Bisacodyl 5 MG Tab PO SCH ×2 (08:57→21:14)
[2020-10-26] MEDS ORDERED: Furosemide 20 MG/2 ML VIAL IVPUSH ONE (09:00)
[2020-10-26] MEDS: Ondansetron 4 MG/2 ML SDV IV PRN (13:57)
--- NOTE | 2020-10-26 14:57 | PCM.PN ---
- General Info Date of Service: 10/26/20 Subjective Update: No acute events overnight. Pain is slowly improving. No fevers. Tolerating diet so far. Her main concern is that she is very weak and had difficulty ambulating even from the bed to the chair. Slowly getting better. Functional Status: Reports: Pain Controlled, Tolerating Diet - Patient Data Vitals - Most Recent: Last Vital Signs Temp 36.8 C 10/26/20 04:00 Pulse 83 10/26/20 12:00 Resp 20 10/26/20 12:00 BP 132/57 L 10/26/20 12:00 Pulse Ox 93 L 10/26/20 12:00 Weight - Most Recent: 86.183 kg I&O - Last 24 Hours: Intake & Output 10/25/20 10/26/20 10/26/20 22:59 06:59 14:59 Intake Total 380 1621 Output Total 75 1580 Balance -37 41 Lab Results Last 24 Hours: Laboratory Results - last 24 hr 10/25/20 10/26/20 10/26/20 Range/Units 20:23 02:49 04:51 WBC 7.5 (4.5-11.0) K/uL RBC 3.71 (3.30-5.50) M/uL Hgb 10.6 L (12.0-15.0) g/dL Hct 33.1 L (36.0-48.0) % MCV 89 (80-98) fL MCH 29 (27-31) pg MCHC 32 (32-36) % Plt Count 159 (150-400) K/uL Sodium (140-148) mmol/L Potassium (3.6-5.2) mmol/L Chloride (100-108) mmol/L Carbon Dioxide (21-32) mmol/L Anion Gap (5.0-14.0) mmol/L BUN (7-18) mg/dL Creatinine (0.6-1.0) mg/dL Est Cr Clr Drug Dosing mL/min Estimated GFR (MDRD) (>60) Glucose (74-106) mg/dL POC Glucose 347 H 223 H (74-106) mg/dL Calcium (8.5-10.1) mg/dL Phosphorus (2.5-4.9) mg/dL Magnesium (1.8-2.4) mg/dL Total Bilirubin (0.2-1.0) mg/dL AST (15-37) U/L ALT (12-78) U/L Alkaline Phosphatase (46-116) U/L NT-Pro-B Natriuret Pep (5-450) pg/mL Total Protein (6.4-8.2) g/dL Albumin (3.4-5.0) g/dL Globulin (2.3-3.5) g/dL Albumin/Globulin Ratio (1.2-2.2) 10/26/20 10/26/20 Range/Units 04:51 14:44 WBC (4.5-11.0) K/uL RBC (3.30-5.50) M/uL Hgb (12.0-15.0) g/dL Hct (36.0-48.0) % MCV (80-98) fL MCH (27-31) pg MCHC (32-36) % Plt Count (150-400) K/uL Sodium 142 (140-148) mmol/L Potassium 3.8 (3.6-5.2) mmol/L Chloride 104 (100-108) mmol/L Carbon Dioxide 30 (21-32) mmol/L Anion Gap 8.1 (5.0-14.0) mmol/L BUN 17 (7-18) mg/dL Creatinine 1.1 H (0.6-1.0) mg/dL Est Cr Clr Drug Dosing 39.71 mL/min Estimated GFR (MDRD) 48 L (>60) Glucose 204 H (74-106) mg/dL POC Glucose 293 H (74-106) mg/dL Calcium 8.6 (8.5-10.1) mg/dL Phosphorus 2.3 L (2.5-4.9) mg/dL Magnesium 1.9 (1.8-2.4) mg/dL Total Bilirubin 0.9 (0.2-1.0) mg/dL AST 322 H (15-37) U/L ALT 297 H (12-78) U/L Alkaline Phosphatase 241 H (46-116) U/L NT-Pro-B Natriuret Pep 2190 H (5-450) pg/mL Total Protein 5.0 L (6.4-8.2) g/dL Albumin 2.3 L (3.4-5.0) g/dL Globulin 2.7 (2.3-3.5) g/dL Albumin/Globulin Ratio 0.9 L (1.2-2.2) Med Orders - Current: Current Medications Acetaminophen (Acetaminophen 325 Mg Tab) 650 mg PO Q6HR [facility] Last Admin: 10/26/20 09:04 Dose: 650 mg Documented by: Albuterol/Ipratropium (Albuterol/Ipratropium 3.0-0.5 Mg/3 Ml Neb Soln) 3 ml INH QIDRT [facility] Last Admin: 10/26/20 14:34 Dose: 3 ml Documented by: Albuterol/Ipratropium (Albuterol/Ipratropium 3.0-0.5 Mg/3 Ml Neb Soln) 3 ml INH Q4H PRN PRN Reason: BREATHING Alogliptin Benzoate (Alogliptin 12.5 Mg Tab) 12.5 mg PO DAILY [facility] Last Admin: 10/26/20 08:57 Dose: 12.5 mg Documented by: Bisacodyl (Bisacodyl 5 Mg Tab) 10 mg PO BID [facility] Last Admin: 10/26/20 08:57 Dose: 10 mg Documented by: Dextrose (Glucose Gel 15 Gm In 37.5 Gm Tube) 15 gm PO ASDIRECTED PRN PRN Reason: HYPOGLYCEMIA Dextrose/Water (50% Dextrose In Water 50 Ml Syringe) 50 ml IVPUSH ASDIRECTED PRN PRN Reason: HYPOGLYCEMIA Docusate Sodium (Docusate Sodium 100 Mg Cap) 100 mg PO BID [facility] Last Admin: 10/26/20 08:57 Dose: 100 mg Documented by: Glipizide (Glipizide 5 Mg Tab) 5 mg PO BIDAC [facility] Last Admin: 10/26/20 08:10 Dose: 5 mg Documented by: Glucagon (Glucagon,Human Recombinant 1 Mg Vial) 1 mg IM ASDIRECTED PRN PRN Reason: HYPOGLYCEMIA Hydromorphone HCl (Hydromorphone/Normal Saline 15 Mg/30 Ml Blending Technician) 0 mg IV ASDIRECTED PRN; Protocol PRN Reason: ADOLESCENT COORDINATOR PAIN CONTROL Last Admin: 10/26/20 08:03 Dose: 15 mg Documented by: Piperacillin/Tazobactam/ (Dextrose 3.375 gm/ Premix) 50 mls @ 100 mls/hr IV Q6H [facility] Last Admin: 10/26/20 12:32 Dose: 100 mls/hr Documented by: Lactated Ringer's (Ringers, Lactated) 1,000 mls @ 25 mls/hr IV ASDIRECTED [facility] Last Admin: 10/26/20 05:31 Dose: 25 mls/hr Documented by: Potassium Phosphate (Potassium Phos In Ns 15 Mmol/250 Ml) 250 mls @ 85 mls/hr IV Q3H [facility] Stop: 10/26/20 17:57 Last Admin: 10/26/20 13:53 Dose: 85 mls/hr Documented by: Insulin Human Lispro (Insulin Lispro 100 Unit/Ml 3 Ml Kwikpen) 0 unit SUBCUT QID PRN; Protocol PRN Reason: MEDIUM CORRECTIONAL DOSING Last Admin: 10/26/20 14:47 Dose: 5 units Documented by: Levothyroxine Sodium (Levothyroxine 112 Mcg Tab) 112 mcg PO ACBREAKFAST [facility] Last Admin: 10/26/20 08:09 Dose: 112 mcg Documented by: Naloxone HCl (Naloxone 0.4 Mg/Ml Sdv) 0.1 mg IV ASDIRECTED PRN PRN Reason: decreased respiratory rate Ondansetron HCl (Ondansetron 4 Mg/2 Ml Sdv) 4 mg IV Q4H PRN PRN Reason: Nausea/Vomiting Last Admin: 10/26/20 13:57 Dose: 4 mg Documented by: Pantoprazole Sodium (Pantoprazole 40 Mg Vial) 40 mg IV Q24H [facility] Last Admin: 10/25/20 20:23 Dose: 40 mg Documented by: Senna/Docusate Sodium (Docusate Sodium/Sennosides 50-8.6 Mg Tab) 1 tab PO BID [facility] Last Admin: 10/26/20 08:58 Dose: 1 tab Documented by: Sodium Chloride (Sodium Chloride 0.9% 10 Ml Syringe) 10 ml FLUSH ASDIRECTED PRN PRN Reason: Keep Vein Open Discontinued Medications Acetaminophen (Acetaminophen 325 Mg Tab) 650 mg PO Q4H PRN PRN Reason: Pain (Mild 1-3)/fever Albuterol (Albuterol 0.083% 2.5 Mg/3 Ml Neb Soln) 2.5 mg NEB Q4H PRN PRN Reason: Shortness Of Breath/wheezing Last Admin: 10/23/20 15:14 Dose: 2.5 mg Documented by: Albuterol/Ipratropium (Albuterol/Ipratropium 3.0-0.5 Mg/3 Ml Neb Soln) 3 ml INH Q4H [facility] Last Admin: 10/24/20 04:00 Dose: 3 ml Documented by: Alogliptin Benzoate (Alogliptin 12.5 Mg Tab) 12.5 mg PO DAILY [facility] Aspirin (Aspirin 81 Mg Tab.Chew) 81 mg PO DAILY [facility] Atorvastatin Calcium (Atorvastatin 10 Mg Tab) 10 mg PO BEDTIME [facility] Last Admin: 10/23/20 23:09 Dose: Not Given Documented by: Bupivacaine HCl (Bupivacaine 0.5% 50 Ml Mdv) Confirm Administered Dose 50 ml .ROUTE .STK-MED ONE Stop: 10/25/20 06:38 Last Admin: 10/25/20 07:42 Dose: 20 ml Documented by: Bupivacaine HCl/Epinephrine Bitart (Bupivacaine 0.5%/Epinephrine 1:200,000 50 Ml Mdv) Confirm Administered Dose 50 ml .ROUTE .STK-MED ONE Stop: 10/23/20 15:04 Last Admin: 10/23/20 17:15 Dose: 20 ml Documented by: Ropivacaine 43 ml/Dexamethasone 8 mg/Epinephrine HCl 0.4 mg/ Sodium Chloride 34.6 ml 0 ml NERVRT ASDIRECTED [facility] Last Admin: 10/23/20 15:53 Dose: 80 syringe Documented by: Ropivacaine 43 ml/Dexamethasone 8 mg/Epinephrine HCl 0.4 mg/ Sodium Chloride 34.6 ml 0 ml NERVRT ASDIRECTED [facility] Last Admin: 10/25/20 07:40 Dose: 80 syringe Documented by: Dexamethasone (Dexamethasone 4 Mg/Ml Sdv) Confirm Administered Dose 4 mg .ROUTE .STK-MED ONE Stop: 10/23/20 14:52 Fentanyl (Fentanyl 250 Mcg/5 Ml Sdv) Confirm Administered Dose 250 mcg .ROUTE .STK-MED ONE Stop: 10/23/20 14:52 Furosemide (Furosemide 20 Mg/2 Ml Vial) 20 mg IVPUSH ONETIME ONE Stop: 10/26/20 09:01 Last Admin: 10/26/20 08:56 Dose: 20 mg Documented by: Glipizide (Glipizide 5 Mg Tab) 5 mg PO BIDAC [facility] Last Admin: 10/24/20 23:23 Dose: Not Given Documented by: Glycopyrrolate (Glycopyrrolate 0.2 Mg/Ml 5 Ml Mdv) Confirm Administered Dose 1 mg .ROUTE .STK-MED ONE Stop: 10/23/20 14:52 Hydromorphone HCl (Hydromorphone 0.5 Mg/0.5 Ml Syringe) 0.5 mg IVPUSH Q2H PRN PRN Reason: Pain (severe 7-10) Last Admin: 10/24/20 07:31 Dose: 0.5 mg Documented by: Piperacillin Sod/Tazobactam (Sod 3.375 gm/ Sodium Chloride) 50 mls @ 100 mls/hr IV Q6H [facility] Lactated Ringer's (Ringers, Lactated) 1,000 mls @ 100 mls/hr IV ASDIRECTED [facility] Last Admin: 10/24/20 18:06 Dose: 100 mls/hr Documented by: Lactated Ringer's (Ringers, Lactated) 500 mls @ 999 mls/hr IV ASDIRECTED [facility] Stop: 10/23/20 13:16 Lactated Ringer's (Ringers, Lactated) Confirm Administered Dose 1,000 mls @ as directed .ROUTE .STK-MED ONE Stop: 10/23/20 15:59 Sodium Chloride (Normal Saline) Confirm Administered Dose 10 mls @ as directed .ROUTE .STK-MED ONE Stop: 10/23/20 16:51 Lactated Ringer's (Ringers, Lactated) 500 mls @ 500 mls/hr IV BOLUS ONE Stop: 10/24/20 16:44 Last Admin: 10/24/20 15:44 Dose: 500 mls/hr Documented by: Lactated Ringer's (Ringers, Lactated) 750 mls @ 999 mls/hr IV ONETIME ONE Stop: 10/24/20 18:45 Last Admin: 10/24/20 17:58 Dose: 999 mls/hr Documented by: Lactated Ringer's (Ringers, Lactated) 1,000 mls @ 125 mls/hr IV ASDIRECTED [facility] Last Admin: 10/25/20 08:55 Dose: 125 mls/hr Documented by: Lactobacillus Rhamnosus (Lactobacillus Rhamnosus Gg (Probiotic) Cap) 1 cap PO BID [facility] Last Admin: 10/23/20 23:09 Dose: Not Given Documented by: Lidocaine/Epinephrine (Lidocaine 1% With Epinephrine 1:100,000 50 Ml Mdv) Confirm Administered Dose 50 ml .ROUTE .STK-MED ONE Stop: 10/25/20 06:38 Last Admin: 10/25/20 07:42 Dose: 20 ml Documented by: Lorazepam (Lorazepam 2 Mg/Ml Sdv) 0.5 mg IVPUSH Q4H PRN PRN Reason: Nausea/Vomiting Magnesium Hydroxide (Magnesium Hydroxide 400 Mg/5 Ml Susp 30 Ml Cup) 30 ml PO Q12H PRN PRN Reason: Constipation Meropenem (Meropenem 500 Mg Sdv) Confirm Administered Dose 500 mg .ROUTE .STK- MED ONE Stop: 10/23/20 16:51 Last Admin: 10/23/20 17:02 Dose: 500 mg Documented by: Meropenem (Meropenem 500 Mg Sdv) Confirm Administered Dose 500 mg .ROUTE .STK- MED ONE Stop: 10/23/20 16:55 Meropenem (Meropenem 500 Mg Sdv) Confirm Administered Dose 500 mg .ROUTE .STK- MED ONE Stop: 10/25/20 06:38 Last Admin: 10/25/20 07:44 Dose: 500 mg Documented by: Neostigmine Methylsulfate (Neostigmine Methylsulfate 1 Mg/Ml 5 Ml Syringe) Confirm Administered Dose 5 mg .ROUTE .STK-MED ONE Stop: 10/23/20 14:52 Non-Formulary Medication (Pioglitazone Hcl [Pioglitazone Hcl]) 45 mg PO DAILY [facility] Ondansetron HCl (Ondansetron 4 Mg/2 Ml Sdv) 4 mg IV Q6H PRN PRN Reason: Nausea/Vomiting Ondansetron HCl (Ondansetron 4 Mg Tab.Dis) 4 mg PO Q6H PRN PRN Reason: Nausea able to take PO Ondansetron HCl (Ondansetron 4 Mg/2 Ml Sdv) Confirm Administered Dose 4 mg .ROUTE .STK-MED ONE Stop: 10/23/20 14:52 Oxycodone HCl (Oxycodone 5 Mg Tab) 5 - 10 mg PO Q4H PRN PRN Reason: Pain Last Admin: 10/24/20 04:30 Dose: 5 mg Documented by: Potassium Chloride (Potassium Chloride 20 Meq Tab.Er) 40 meq PO ONETIME ONE Stop: 10/25/20 10:31 Last Admin: 10/25/20 10:38 Dose: 40 meq Documented by: Propofol (Propofol 200 Mg/20 Ml Sdv) Confirm Administered Dose 200 mg .ROUTE .STK-MED ONE Stop: 10/23/20 14:52 Propofol (Propofol 200 Mg/20 Ml Sdv) Confirm Administered Dose 200 mg .ROUTE .STK-MED ONE Stop: 10/25/20 07:12 Rocuronium [place] (Rocuronium 50 Mg/5 Ml Vial) Confirm Administered Dose 50 mg .ROUTE .STK-MED ONE Stop: 10/23/20 14:52 Senna/Docusate Sodium (Docusate Sodium/Sennosides 50-8.6 Mg Tab) 1 tab PO BID PRN PRN Reason: Constipation Succinylcholine Chloride (Succinylcholine 200 Mg/10 Ml Mdv) Confirm Administered Dose 200 mg .ROUTE .STK-MED ONE Stop: 10/23/20 14:52 Trazodone HCl (Trazodone 50 Mg Tab) 50 mg PO BEDTIME [facility] Last Admin: 10/23/20 23:08 Dose: Not Given Documented by: - Exam Quality Assessment: No: Supplemental Oxygen Urinary Catheter Total Time: 2Days 7Hours General: Alert, Oriented, Cooperative, No Acute Distress Lungs: Normal Respiratory Effort GI/Abdominal Exam: Soft, No Distention Extremities: No Pedal Edema Skin: Warm, Dry Psy/Mental Status: Alert, Normal Affect - Patient Data Lab Results Last 24 hrs: Laboratory Results - last 24 hr 10/25/20 10/26/20 10/26/20 Range/Units 20:23 02:49 04:51 WBC 7.5 (4.5-11.0) K/uL RBC 3.71 (3.30-5.50) M/uL Hgb 10.6 L (12.0-15.0) g/dL Hct 33.1 L (36.0-48.0) % MCV 89 (80-98) fL MCH 29 (27-31) pg MCHC 32 (32-36) % Plt Count 159 (150-400) K/uL Sodium (140-148) mmol/L Potassium (3.6-5.2) mmol/L Chloride (100-108) mmol/L Carbon Dioxide (21-32) mmol/L Anion Gap (5.0-14.0) mmol/L BUN (7-18) mg/dL Creatinine (0.6-1.0) mg/dL Est Cr Clr Drug Dosing mL/min Estimated GFR (MDRD) (>60) Glucose (74-106) mg/dL POC Glucose 347 H 223 H (74-106) mg/dL Calcium (8.5-10.1) mg/dL Phosphorus (2.5-4.9) mg/dL Magnesium (1.8-2.4) mg/dL Total Bilirubin (0.2-1.0) mg/dL AST (15-37) U/L ALT (12-78) U/L Alkaline Phosphatase (46-116) U/L NT-Pro-B Natriuret Pep (5-450) pg/mL Total Protein (6.4-8.2) g/dL Albumin (3.4-5.0) g/dL Globulin (2.3-3.5) g/dL Albumin/Globulin Ratio (1.2-2.2) 10/26/20 10/26/20 Range/Units 04:51 14:44 WBC (4.5-11.0) K/uL RBC (3.30-5.50) M/uL Hgb (12.0-15.0) g/dL Hct (36.0-48.0) % MCV (80-98) fL MCH (27-31) pg MCHC (32-36) % Plt Count (150-400) K/uL Sodium 142 (140-148) mmol/L Potassium 3.8 (3.6-5.2) mmol/L Chloride 104 (100-108) mmol/L Carbon Dioxide 30 (21-32) mmol/L Anion Gap 8.1 (5.0-14.0) mmol/L BUN 17 (7-18) mg/dL Creatinine 1.1 H (0.6-1.0) mg/dL Est Cr Clr Drug Dosing 39.71 mL/min Estimated GFR (MDRD) 48 L (>60) Glucose 204 H (74-106) mg/dL POC Glucose 293 H (74-106) mg/dL Calcium 8.6 (8.5-10.1) mg/dL Phosphorus 2.3 L (2.5-4.9) mg/dL Magnesium 1.9 (1.8-2.4) mg/dL Total Bilirubin 0.9 (0.2-1.0) mg/dL AST 322 H (15-37) U/L ALT 297 H (12-78) U/L Alkaline Phosphatase 241 H (46-116) U/L NT-Pro-B Natriuret Pep 2190 H (5-450) pg/mL Total Protein 5.0 L (6.4-8.2) g/dL Albumin 2.3 L (3.4-5.0) g/dL Globulin 2.7 (2.3-3.5) g/dL Albumin/Globulin Ratio 0.9 L (1.2-2.2) Result Diagrams: 10/26/20 04:51 10/26/20 04:51 Sepsis Event Note - Evaluation Sepsis Screening Result: No Definite Risk - Focused Exam Vital Signs: Vital Signs Temp Pulse Resp BP Pulse Ox 10/26/20 12:00 83 20 132/57 L 93 L 10/26/20 04:00 36.8 C 65 14 163/70 H 99 - Problem List & Annotations (1) Acute cholecystitis without calculus SNOMED Code(s): 62673385 Code(s): K81.0 - ACUTE CHOLECYSTITIS Status: Acute Current Visit: Yes (2) Leukopenia SNOMED Code(s): 79306499, 607059882 Code(s): D72.819 - DECREASED WHITE BLOOD CELL COUNT, UNSPECIFIED Status: Acute Current Visit: Yes Qualifiers: Leukopenia type: unspecified Qualified Code(s): D72.819 - Decreased white blood cell count, unspecified (3) Thrombocytopenia SNOMED Code(s): 720070543 Code(s): D69.6 - THROMBOCYTOPENIA, UNSPECIFIED Status: Acute Current Visit: Yes (4) Type 2 diabetes mellitus SNOMED Code(s): 88686177 Code(s): E11.9 - TYPE 2 DIABETES MELLITUS WITHOUT COMPLICATIONS Status: Chronic Current Visit: Yes Qualifiers: Diabetes mellitus half-way insulin use: without terminal computer operator use Diabetes mellitus complication status: without complication Qualified Code(s): E11.9 - Type 2 diabetes mellitus without complications (5) COPD (chronic obstructive pulmonary disease) SNOMED Code(s): 46062850 Code(s): J44.9 - CHRONIC OBSTRUCTIVE PULMONARY DISEASE, UNSPECIFIED Status: Chronic Current Visit: Yes Qualifiers: COPD type: unspecified COPD Qualified Code(s): J44.9 - Chronic obstructive pulmonary disease, unspecified - Problem List Review Problem List Initiated/Reviewed/Updated: Yes - Plan Plan:: ASSESSMENT AND PLAN - Acute cholecystitis-status post laparoscopic to open cholecystectomy on 10/23. Pain control improving and vital signs are stable. Main issue at this time is generalized weakness. -Antibiotic coverage with Pip/Tazo -Saline lock IV -symptomatic management of pain and nausea -Physical therapy -Surgical follow-up per Dr. Martin Leukopenia and thrombocytopenia-most likely related to infection versus less likely underlying hematologic malignancy. Levels have improved with management of the infection. -Peripheral smear pending Type 2 diabetes mellitus-acceptable control so far. -Continue oral medications -Low-dose sliding scale insulin COPD-mild and stable. Maintenance issues - -DVT prophylaxis-mechanical -GI prophylaxis-not indicated -Nutrition-full liquids -Oliver catheter-placed at the time of surgery for strict intake and output monitoring in a critical patient Disposition -I anticipate discharge home after the hospital stay Nicholas Hunt M.D.
--- NOTE | 2020-10-26 15:31 | PN ---
DATE OF SERVICE: 10/26/2020 The patient has been afebrile, stable vital signs. Hemoglobin is stable at 10.6, white count is 11,500. Oral intake is still little bit on the slow side. She has been offered a more or less regular diet and continue with bowel stimulation. MARIJA drains both have no evidence of bile and concentration looked good. At this point with bilirubin being stable at 0.9, her phosphate is low. We will give her some IV phosphate today along with potassium. BNP is up quite a bit at 2100 and will give her some Lasix with that as well. Oliver catheter was taken out earlier today, and the patient can be transferred to 2nd floor at this time. Dickson Martin MD /[id number]
[2020-10-26] MEDS: Pantoprazole 40 MG Vial IV SCH (19:44)
[2020-10-27] MEDS: Insulin Lispro 100 Unit/ML 3 ML KwikPen SUBCUT PRN ×5 (02:47→21:07)
[2020-10-27] MEDS: Acetaminophen 325 MG Tab PO SCH ×4 (04:16→21:07)
[2020-10-27] MEDS: Piperacillin/Tazobactam/Dext 3.375 GM in Premix Bag 1 BAG IV SCH ×3 (05:47→17:36)
[2020-10-27] MEDS: Albuterol/Ipratropium 3.0-0.5 MG/3 ML Neb Soln INH SCH (06:57)
[2020-10-27] MEDS ORDERED: Ondansetron 4 MG Tab.DIS PO PRN (07:24)
--- NOTE | 2020-10-27 07:57 | PN ---
DATE OF SERVICE: 10/27/2020 SUBJECTIVE: Eloise is reporting some pain. Her Oliver was removed approximately an hour ago and she is having a sensation to urinate. Oral intake past 24 hours was 1220. Urine output via Oliver catheter 1850. MARIJA drain 1 put out 50 and MARIJA drain 2 put out 10. Remains on a full liquid diet. LABORATORY DATA: Labs this morning, hemoglobin 9.9, creatinine 1.1, glucose 150, magnesium is 1.6. Liver function tests remain elevated. AST 381, ALT 404, alkaline phosphatase 249. BNP is 2128. REVIEW OF SYSTEMS: Remainder of review of systems negative for any pertinent positives and negatives. OBJECTIVE: GENERAL: Eloise Mosley is a 75-year-old female. VITAL SIGNS: TPR is 98, 63, 16, blood pressure 132/48. HEENT: Negative. HEART: Regular rate and rhythm. LUNGS: Clear. ABDOMEN: Dressings dry and intact. MARIJA drains as above. EXTREMITIES: No peripheral edema. ASSESSMENT: 1. Laparoscopy. 2. Laparotomy. 3. Cholecystectomy for acute cholecystitis with extreme friability of the cystic artery, 10/23/2020. Surgeon: Dickson Martin MD. 4. Delayed primary closure for open abdominal incision on 10/25/2020. Dickson Martin MD. PLAN: 1. Magnesium 2 g IV q.6 hours x72 hours. 2. 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 3. Dilaudid 2 to 4 mg q.4 hours p.r.n. pain. 4. Zofran ODT 4 mg q.4 hours p.r.n. nausea. 5. Lasix 20 mg IV for BNP of 2128 1 time only. 6. In a.m., check CBC, CMP, phos, and BNP. 7. Continue to work on incentive spirometer and ambulation. 8. We will evaluate p.r.n. or in a.m. Caity San PA-C /[id number]
[2020-10-27] MEDS: glipiZIDE 5 MG Tab PO SCH ×2 (08:07→17:36)
[2020-10-27] MEDS: Levothyroxine 112 MCG Tab PO SCH (08:08)
[2020-10-27] MEDS: Docusate Sodium 100 MG Cap PO SCH ×2 (08:08→21:06)
[2020-10-27] MEDS: Bisacodyl 5 MG Tab PO SCH ×2 (08:08→21:06)
[2020-10-27] MEDS ORDERED: Furosemide 20 MG/2 ML VIAL IVPUSH ONE (09:00)
[2020-10-27] MEDS ORDERED: LORazepam 2 MG/ML SDV IVPUSH PRN (09:00)
[2020-10-27] MEDS: HYDROmorphone 2 MG Tab PO PRN ×3 (09:03→21:16)
[2020-10-27] MEDS: Magnesium Sulfate/Water 2 GM/50 ML BAG IV SCH ×3 (09:33→21:07)
[2020-10-27] MEDS ORDERED: Levalbuterol HCl 1.25 MG/3 ML Neb NEB PRN (11:04)
[2020-10-27] MEDS: Levalbuterol HCl 1.25 MG/3 ML Neb NEB SCH ×3 (11:05→21:16)
[2020-10-27] MEDS: LORazepam 2 MG/ML SDV IVPUSH PRN ×2 (11:47→17:57)
[2020-10-27] MEDS: Pantoprazole 40 MG Tab.CR PO SCH (21:06)
[2020-10-27] MEDS: Bisacodyl 10 MG Supp RECTAL SCH (21:16)
[2020-10-28] MEDS: Piperacillin/Tazobactam/Dext 3.375 GM in Premix Bag 1 BAG IV SCH ×5 (00:14→23:51)
[2020-10-28] MEDS: Magnesium Sulfate/Water 2 GM/50 ML BAG IV SCH ×4 (04:00→21:00)
[2020-10-28] MEDS: Acetaminophen 325 MG Tab PO SCH ×4 (04:02→21:00)
[2020-10-28] MEDS: Albuterol/Ipratropium 3.0-0.5 MG/3 ML Neb Soln INH SCH (06:13)
[2020-10-28] MEDS: LORazepam 0.5 MG Tab PO PRN ×2 (07:08→11:51)
[2020-10-28] MEDS: Levothyroxine 112 MCG Tab PO SCH (07:10)
[2020-10-28] MEDS: glipiZIDE 5 MG Tab PO SCH ×2 (07:10→15:30)
--- NOTE | 2020-10-28 07:10 | PN ---
DATE OF SERVICE: 10/28/2020 SUBJECTIVE: Eloise has had increased amount of anxiety. Yesterday, she was given IV Ativan and oral Ativan along with oral Dilaudid. She has been having no fever. Oral intake 2530. Urine output 4300. MARIJA drains have put out 60 and 125 of a red clear drainage. Reports pain is controlled by nodding her head. Hemoglobin was 10.6 today. Her bilirubin was elevated at 1.4. BNP is 1904. Last blood sugar was 195. REVIEW OF SYSTEMS: Remainder of review of systems negative for any pertinent positives and negatives. OBJECTIVE: GENERAL: Eloise is a 75-year-old female, somewhat confused. VITAL SIGNS: TPR is 98, 69, 18, blood pressure 147/49. HEENT: Negative. NECK: Supple. HEART: Regular rate and rhythm. LUNGS: Clear. ABDOMEN: Dressing dry and intact. Abdominal binder is on. MARIJA drain as above. ASSESSMENT: 1. Laparoscopy turned to laparotomy, cholecystectomy for acute cholecystitis with extreme friability of the cystic artery. 2. Date of procedure: 10/23/2020. Surgeon: Dickson Martin MD. 3. Delayed primary closure of open abdominal incision on 10/25/2020. Dickson Martin MD. PLAN: 1. Milk of magnesia 30 mL b.i.d. oral, discontinue when the patient has bowel movement. 2. Lasix 10 mg IV 1 time. 3. Check CBC, CMP, phos in a.m. 4. We will evaluate p.r.n. or in a.m. Caity San PA-C /[id number]
[2020-10-28] MEDS: HYDROmorphone 2 MG Tab PO PRN ×2 (07:13→11:52)
[2020-10-28] MEDS: Levalbuterol HCl 1.25 MG/3 ML Neb NEB SCH ×3 (07:17→20:59)
[2020-10-28] MEDS: Sodium Chloride 0.9% 1,000 ML IV SCH (07:26)
[2020-10-28] MEDS: Insulin Lispro 100 Unit/ML 3 ML KwikPen SUBCUT PRN ×4 (07:28→21:03)
[2020-10-28] MEDS: Docusate Sodium 100 MG Cap PO SCH ×2 (08:53→20:59)
[2020-10-28] MEDS: Bisacodyl 5 MG Tab PO SCH ×2 (08:54→20:59)
[2020-10-28] MEDS: Bisacodyl 10 MG Supp RECTAL SCH ×3 (08:54→21:02)
[2020-10-28] MEDS: Magnesium Hydroxide 400 MG/5 ML Susp 30 ML Cup PO SCH ×2 (08:55→21:00)
[2020-10-28] MEDS ORDERED: Furosemide 20 MG/2 ML VIAL IVPUSH ONE (09:00)
[2020-10-28] MEDS: Ondansetron 4 MG/2 ML SDV IV PRN (09:18)
[2020-10-28] MEDS: Pantoprazole 40 MG Tab.CR PO SCH (20:59)
[2020-10-29] MEDS: HYDROmorphone 2 MG Tab PO PRN ×4 (01:53→22:21)
[2020-10-29] MEDS: Magnesium Sulfate/Water 2 GM/50 ML BAG IV SCH ×4 (03:00→21:15)
[2020-10-29] MEDS: Acetaminophen 325 MG Tab PO SCH ×4 (03:00→21:14)
[2020-10-29] MEDS: Piperacillin/Tazobactam/Dext 3.375 GM in Premix Bag 1 BAG IV SCH (05:47)
[2020-10-29] MEDS: glipiZIDE 5 MG Tab PO SCH ×2 (08:00→18:04)
[2020-10-29] MEDS: Levothyroxine 112 MCG Tab PO SCH (08:02)
[2020-10-29] MEDS: Levalbuterol HCl 1.25 MG/3 ML Neb NEB SCH ×4 (08:13→21:12)
[2020-10-29] MEDS: Insulin Lispro 100 Unit/ML 3 ML KwikPen SUBCUT PRN ×4 (08:28→21:13)
[2020-10-29] MEDS ORDERED: Potassium Chloride 20 MEQ, Lidocaine 1% 2 ML in Sodium Chloride 0.9% 100 ML IV ONE (10:00)
--- NOTE | 2020-10-29 11:07 | PN ---
DATE OF SERVICE: 10/29/2020 SUBJECTIVE: Eloise had oral intake of 900. Urine output 1500. MARIJA drain #1 put out 150 of a bilious-colored drainage. MARIJA drain #2 put out 55 mL of a light red drainage. She did have 1 large bowel movement. Vital signs have been stable. Hemoglobin 10.2, potassium 3.5. Bilirubin is down to 1.1. Liver function tests are slowly improving. REVIEW OF SYSTEMS: Remainder of review of systems negative for any pertinent positives or negatives. Eloise is repeating, "I can't, I can't" this morning. Eyes closed. OBJECTIVE: GENERAL: Eloise is a 75-year-old female. VITAL SIGNS: TPR is 97.9, 89, 16. Blood pressure 143/75. HEENT: Negative. NECK: Supple. HEART: Regular rate and rhythm. LUNGS: Clear. ABDOMEN: Dressings dry and intact. MARIJA drains are examined and as above. EXTREMITIES: Without peripheral edema. ASSESSMENT: Laparoscopy turned to laparotomy for cholecystectomy. POSTOPERATIVE DIAGNOSES: 1. Acute cholecystitis with extreme friability of the cystic artery. Date of procedure 10/23/2020. Surgeon: Dickson Martin MD. 2. Delayed primary closure of open abdominal incision, 10/25/2020. Dickson Martin MD. Postop bleeding requiring 2 units of packed red blood cells. PLAN: 1. Consult with Discharge Planning. 2. Consistent carb regular diet. 3. Discontinue MARIJA drain #2. 4. Discontinue all bowel stimulation. 5. KCl 20 mEq IV 1 time. 6. Check CBC, CMP, phos, and BNP in a.m. 7. We will evaluate p.r.n. or in a.m. Caity San PA-C /[id number]
[2020-10-29] MEDS: Pantoprazole 40 MG Tab.CR PO SCH (21:13)
[2020-10-29] MEDS: Ondansetron 4 MG/2 ML SDV IV PRN (23:35)
[2020-10-29] MEDS: LORazepam 2 MG/ML SDV IVPUSH PRN (23:57)
[2020-10-30] MEDS: Sodium Chloride 0.9% 1,000 ML IV SCH (01:34)
[2020-10-30] MEDS: Acetaminophen 325 MG Tab PO SCH ×4 (03:44→21:01)
[2020-10-30] MEDS: Magnesium Sulfate/Water 2 GM/50 ML BAG IV SCH (03:45)
[2020-10-30] MEDS: HYDROmorphone 2 MG Tab PO PRN ×3 (04:00→20:14)
[2020-10-30] MEDS: LORazepam 2 MG/ML SDV IVPUSH PRN ×2 (05:54→15:51)
[2020-10-30] MEDS ORDERED: Potassium Phosphates 45 MMOLE in Sodium Chloride 0.9% 250 ML IV SCH (06:45)
[2020-10-30] MEDS: Levalbuterol HCl 1.25 MG/3 ML Neb NEB SCH ×4 (07:15→20:56)
[2020-10-30] MEDS: Levothyroxine 112 MCG Tab PO SCH (07:35)
[2020-10-30] MEDS: glipiZIDE 5 MG Tab PO SCH ×2 (07:35→19:02)
[2020-10-30] MEDS: Insulin Lispro 100 Unit/ML 3 ML KwikPen SUBCUT PRN ×4 (07:39→20:57)
[2020-10-30] MEDS: Cyclobenzaprine 10 MG Tab PO PRN ×2 (08:25→20:55)
[2020-10-30] MEDS ORDERED: Potassium Phosphates 15 MMOLE in Sodium Chloride 0.9% 250 ML IV SCH (09:00)
[2020-10-30] MEDS ORDERED: Furosemide 20 MG/2 ML VIAL IVPUSH SCH ×2 (09:00→17:00)
[2020-10-30] MEDS: Potassium Phos in 0.9 % NaCl 15 MMOL in Premix Bag 1 BAG IV SCH ×6 (09:09→15:11)
--- NOTE | 2020-10-30 12:13 | PN ---
DATE OF SERVICE: 10/30/2020 SUBJECTIVE: Eloise had quite a bit in the way of pain and anxiety during the night. She was given Dilaudid and Ativan. Currently sitting up in the chair. Vital signs have been stable. Oral intake 800 and urine output 1275. MARIJA drain put out 250 mL of a light bile colored and she has had 2 bowel movements. REVIEW OF SYSTEMS: Remainder of review of systems negative for any pertinent positives and negatives. OBJECTIVE: GENERAL: Eloise is a pleasant 75-year-old female. VITAL SIGNS: TPR: 98.4, 74, 18. Blood pressure 159/68. HEENT: Negative. NECK: Supple. HEART: Regular rate and rhythm. LUNGS: Clear. ABDOMEN: Aquacel dressings on. It was replaced yesterday, 10/29/2020. MARIJA drain as above. EXTREMITIES: Without peripheral edema. ASSESSMENT: 1. Delayed primary closure for open abdominal incision, date 10/25/2020. Surgeon: Dickson Martin MD. 2. Laparoscopy turned to laparotomy for cholecystectomy. POSTOPERATIVE DIAGNOSES: 1. Acute cholecystitis with extreme friability of cystic artery. Date of procedure 10/23/2020. Surgeon: Dickson Martin MD. 2. Postoperative bleeding requiring 2 units of packed red blood cells. PLAN: 1. K-Phos 45 mEq IV today. 2. Lasix 20 mg IV b.i.d. today. 3. Check CBC, CMP, mag, phos, and BNP in a.m. 4. Consult Discharge Planning for discharge, 11/01/2020 with longterm placement and she will be going home with the MARIJA drain until there is no bile for 3 days. 5. We will evaluate p.r.n. or in a.m. Caity San PA-C /[id number]
[2020-10-30] MEDS: Ondansetron 4 MG/2 ML SDV IV PRN (15:05)
[2020-10-30] MEDS: Pantoprazole 40 MG Tab.CR PO SCH (20:55)
[2020-10-30] MEDS: LORazepam 0.5 MG Tab PO PRN (20:56)
[2020-10-31] MEDS: LORazepam 0.5 MG Tab PO PRN (02:38)
[2020-10-31] MEDS: Acetaminophen 325 MG Tab PO SCH ×5 (04:30→21:11)
[2020-10-31] MEDS: HYDROmorphone 2 MG Tab PO PRN ×3 (05:41→19:46)
[2020-10-31] MEDS: Levalbuterol HCl 1.25 MG/3 ML Neb NEB SCH ×4 (07:14→21:12)
[2020-10-31] MEDS: glipiZIDE 5 MG Tab PO SCH ×2 (07:32→16:34)
[2020-10-31] MEDS: Levothyroxine 112 MCG Tab PO SCH (07:32)
--- NOTE | 2020-10-31 07:56 | PN ---
DATE OF SERVICE: 10/31/2020 SUBJECTIVE: Eloise's oral intake was 1200. Urine output 3150. MARIJA drain put out 205 of a light bilious drainage. It is getting quite a bit director game. She did have a bowel movement yesterday. She has been up ambulating with help. Vital signs have been stable. Pain and anxiety have been controlled with Dilaudid and Ativan respectively. Remainder of review of systems negative for any pertinent positives and negatives. OBJECTIVE: GENERAL: Eloise is a pleasant 75-year-old female. VITAL SIGNS: TPR is 99.1, 84, 16. Blood pressure 126/51. HEENT: Negative. NECK: Supple. HEART: Regular rate and rhythm. LUNGS: Clear. ABDOMEN: She has the right subcostal incision and Aquacel dressing is on, and MARIJA drain intact as above. EXTREMITIES: Without peripheral edema. ASSESSMENT: 1. Delayed primary closure of open abdominal incision. Date: 10/25/2020. Surgeon: Dickson Martin MD. 2. Laparoscopic turned to laparotomy for cholecystectomy. 3. Postoperative diagnoses: a. Acute cholecystitis with extreme friable cystic artery. b. Date of procedure 10/23/2020. Surgeon: Dickson Maritn MD. c. Postop bleeding requiring 2 units of packed red blood cells. d. Mental status declined/transient. e. Discharge planning for rehabilitation for mobility, safety, and care of the MARIJA drain. PLAN: 1. KCl 20 mEq t.i.d. orally today. 2. Lasix 20 mg IV b.i.d. today. 3. Check CBC, CMP, mag, phos, and BNP in a.m. 4. We will evaluate p.r.n. or in a.m. Caity San PA-C /[id number]
[2020-10-31] MEDS: Potassium Chloride 20 MEQ Tab.ER PO SCH ×3 (08:31→16:35)
[2020-10-31] MEDS: Furosemide 20 MG/2 ML VIAL IVPUSH SCH ×3 (08:31→20:26)
[2020-10-31] MEDS: Insulin Lispro 100 Unit/ML 3 ML KwikPen SUBCUT PRN ×2 (08:32→17:36)
[2020-10-31] MEDS ORDERED: Potassium Chloride 20 MEQ Tab.ER PO SCH (09:00)
--- NOTE | 2020-10-31 11:58 | OR ---
DATE OF PROCEDURE: 10/23/2020 SURGEON: Dickson Martin MD CORRECTED REPORT: PREOPERATIVE DIAGNOSIS: Acute cholecystitis. POSTOPERATIVE DIAGNOSIS: Acute cholecystitis with extremely friable structures at cystohepatic triangle. PROCEDURE PERFORMED: Laparoscopy converted to laparotomy with open cholecystectomy ([id number]). ANESTHESIA: General. INDICATION FOR PROCEDURE: A 75-year-old female presenting with acute cholecystitis. She appeared to be fairly ill with some probable emerging sepsis. Plan is to proceed with a laparoscopic, or if necessary, open cholecystectomy. Potential risks of the procedure including bleeding, infection, injury to underlying viscera, possible migration of stones from the common bile duct requiring additional procedures for correction were all reviewed, and the patient wishes to proceed. DETAILS OF PROCEDURE: The patient was taken to the operating room and placed in a supine position. After general endotracheal anesthesia was induced, the abdomen was prepped and draped. Just to the right of the umbilicus, a transverse incision was made and the peritoneal cavity entered under direct vision with an Optiview trocar and inflated to 15 mmHg pressure with CO2. Following this, a 12 mm epigastric trocar was placed followed by a single right subcostal 5 mm trocar. Bilateral transversus abdominis plane blocks were then placed. The gallbladder was noted to be markedly distended and acutely inflamed. This was grasped and retracted superiorly and anteriorly. Dissection then began down in the area of the gallbladder neck and continued down around the gallbladder neck cystic duct junction. Once those areas were well delineated, the cystic duct gallbladder junction was divided with a DEAN purple load. Attention was then taken to the cystic duct. This was initially grasped with the surgical clips, and upon placement of clip, the duct essentially split in half due to being extremely inflamed and friable. Multiple attempts to control the bleeding laparoscopically were undertaken, but after seeing that significant ongoing blood loss was continuing, we opted to proceed with an open approach. A clamp was placed across the stump of the cystic artery. This stopped the bleeding while the trocars were otherwise removed and the right subcostal incision made and carried down through the full thickness of the abdominal wall. Once the hematoma was evacuated, the remaining trocar and clamp on the stump of the cystic artery was removed. This was then carefully isolated from the common bile duct and suture ligated with a 3-0 Vicryl stitch. The patient had quite a bit of oozing in general from any raw surfaces, but eventually this was stopped. The gallbladder was dissected off the gallbladder bed using cautery and blunt dissection. The gallbladder had quite a bit of oozing as well, and this was eventually controlled with electrocautery along with fibrin sealant. Overall, the patient lost around 2000 mL of blood and was briefly hypotensive, but this was easily corrected per Anesthesia, and the patient received 1 unit of packed RBCs during the case and a second one initiated immediately following the procedure. After removal of the gallbladder, the area of dissection was once again inspected. No further bleeding or problems were noted. Two Cristopher-Beaver drains were placed, one over the posterior aspect of the diaphragm adjacent to the liver and the other into the gallbladder bed. The posterior fascia and peritoneum were then approximated with a #2 Vicryl stitch and the anterior fascia with #2 Vicryl stitch as well. The skin and subcutaneous tissue were felt to be high risk for a wound infection if a primary closure was undertaken, and these were then packed open for a planned delayed primary closure in 48 hours. Drains sutured to the skin with some 3-0 Vicryl stitch. The original camera port went obliquely through some muscle and did not require fascial closure, and the other 2 trocars were incorporated in the subcostal incision line. The patient was taken to the recovery room in stable condition. Dickson Martin MD /[id number]
[2020-10-31] MEDS ORDERED: Docusate Sodium 100 MG Cap PO PRN (19:55)
[2020-10-31] MEDS: Cyclobenzaprine 10 MG Tab PO PRN (20:25)
[2020-10-31] MEDS: Pantoprazole 40 MG Tab.CR PO SCH (21:11)
[2020-10-31] MEDS: Magnesium Hydroxide 400 MG/5 ML Susp 30 ML Cup PO PRN (21:38)
[2020-11-01] MEDS: HYDROmorphone 2 MG Tab PO PRN ×2 (01:28→09:00)
[2020-11-01] MEDS: Acetaminophen 325 MG Tab PO SCH ×2 (04:09→09:15)
[2020-11-01] MEDS: Cyclobenzaprine 10 MG Tab PO PRN (04:10)
[2020-11-01] MEDS ORDERED: Bisacodyl 5 MG Tab PO ONE ×2 (07:00→09:00)
[2020-11-01] MEDS: Levalbuterol HCl 1.25 MG/3 ML Neb NEB SCH (07:08)
[2020-11-01] MEDS: Levothyroxine 112 MCG Tab PO SCH (07:26)
[2020-11-01] MEDS: glipiZIDE 5 MG Tab PO SCH (07:26)
[2020-11-01] MEDS: Magnesium Hydroxide 400 MG/5 ML Susp 30 ML Cup PO PRN (07:27)
[2020-11-01 08:11] VITALS: BP 144/53; PULSE 74
[2020-11-01] MEDS ORDERED: Furosemide 20 MG/2 ML VIAL IVPUSH ONE (09:00)
[2020-11-01] MEDS: Insulin Lispro 100 Unit/ML 3 ML KwikPen SUBCUT PRN (09:18)
--- NOTE | 2020-11-01 09:31 | DISCH ---
ADMISSION DIAGNOSES: 1. Right upper quadrant abdominal pain. 2. Diabetes type 2. 3. Hypercholesterolemia. 4. Hypertension. 5. Asthma. 6. Hypothyroidism. 7. Arthritis. 8. Obesity, BMI greater than 30. DISCHARGE DIAGNOSES: 1. Laparoscopy converted to laparotomy with open cholecystectomy for acute cholecystitis with extremely friable structures at cystohepatic triangle. Date of procedure: 10/24/2020. 2. Delayed primary closure for open abdominal incision. Date: 10/26/2020. Surgeon: Dickson Martin MD. HISTORY: Eloise is a 75-year-old female presenting with acute cholecystitis. She appeared to be fairly ill with some probable emerging sepsis. She after preoperative evaluation and discussion of possible risks and possible complications, she wished to proceed with surgical procedure. Eloise did have quite a bit of post bleeding and she did receive 2 units of packed red blood cells for a hemoglobin of 9.9 postoperatively. Vital signs did remain stable. She was afebrile. She did require some additional IV fluid to maintain urine output. Pain was managed. Blood sugars were monitored and she was on a sliding scale of insulin in addition to her oral medication and it was dependent on her Accu-Cheks. Eloise received physical therapy for postop weakness and received Lasix for elevated BNP and her electrolytes were monitored and replaced as needed. Due to postop weakness, she will be discharged on 11/01/2020 to [facility] for rehabilitation. PHYSICAL EXAMINATION: GENERAL: Eloise is a pleasant 75-year-old female, height is 5 feet 5.35 inches, weight is 190 pounds. VITAL SIGNS: TPR 97.1, 81, 18. Blood pressure 135/49. HEENT: Negative. NECK: Supple. HEART: Regular rate and rhythm. LUNGS: Clear. ABDOMEN: She has a right subcostal stapled incision and also a MARJIA drain, which has been draining a light bilious substance. In the last 24 hours, it drained a 150 mL. She has been wearing an abdominal binder. EXTREMITIES: Without peripheral edema. NEUROLOGIC: Intact. PSYCHIATRIC: Answers questions appropriately, very tired and weak. SKIN: Without rash. DISPOSITION: Discharged to inpatient rehabilitation facility. CONDITION: Stable. FOLLOWUP APPOINTMENT: With Dickson Martin MD, on 11/07/2020 at 10 a.m. She is to arrive at 9:30 a.m. for a CBC and CMP. HOME MEDICATIONS: 1. Tylenol 650 mg q.6 hours p.r.n. pain. 2. Flexeril 10 mg p.o. q.8 hours p.r.n. muscle spasms, #30. 3. Colace 200 mg p.o. q.12 hours p.r.n. bowel movements. 4. Trazodone 50 mg p.o. bedtime. 5. Glipizide 5 mg p.o. b.i.d. 6. Unisom 50 mg p.o. bedtime p.r.n. insomnia. 7. Januvia 100 mg p.o. daily. 8. Simvastatin 20 mg p.o. bedtime. 9. Pioglitazone hydrochloride 45 mg p.o. daily. 10.Levothyroxine 112 mcg p.o. daily. 11.Aspirin 81 mg p.o. daily. 12.Ventolin inhaler 2 puffs inhalation q.4 hours p.r.n. wheezing or shortness of breath. DIET: Diabetic diet 1800 calories. Drink 8 to 10 glasses of water a day. ACTIVITY: No lifting greater than 10 pounds for 6 weeks. Walk at least 6 times a day. May shower. DISCHARGE INSTRUCTIONS: Keep operative site clean and dry. Wear abdominal binder as tolerated. Strip, empty, measure, and record amount and color MARIJA drainage and bring record of drainage and color to clinic appointments. Notify provider if any fever, increased pain, nausea, or vomiting. Other special instructions: Check blood sugars twice a day, once in a.m. fasting and 2 hours after evening meal, and as needed any symptoms of high or low blood sugars. /[id number]
== END 2020-11-01 11:30 | DRG 416 ==
LOC: JP.MS 11:48 → UNDOADMIN 11:48 → JP.ICU 18:21 → JP.MS 10-27 09:05
PROVIDERS: ADMIT Internal Medicine; ATTEND Surgery
PROC: 0FT40ZZ Resection of Gallbladder, Open Approach (ICD-10-PCS; principal; 2020-10-23)
PROC: 0FJ44ZZ Inspection of Gallbladder, Percutaneous Endoscopic Approach (ICD-10-PCS; 2020-10-23)
PROC: 30233N1 Transfusion of Nonautologous Red Blood Cells into Peripheral Vein, Percutaneous Approach (ICD-10-PCS; 2020-10-23)
PROC: 0WQF0ZZ Repair Abdominal Wall, Open Approach (ICD-10-PCS; 2020-10-25)
DX: K81.0 Acute cholecystitis (principal); E11.9 Type 2 diabetes mellitus without complications; Z79.4 Long term (current) use of insulin; I10 Essential (primary) hypertension; E03.9 Hypothyroidism, unspecified; M19.90 Unspecified osteoarthritis, unspecified site; E78.00 Pure hypercholesterolemia, unspecified; E78.5 Hyperlipidemia, unspecified; D69.6 Thrombocytopenia, unspecified; D72.819 Decreased white blood cell count, unspecified; J44.9 Chronic obstructive pulmonary disease, unspecified; S31.109A Unspecified open wound of abdominal wall, unspecified quadrant without penetration into peritoneal cavity, initial encounter; X58.XXXA Exposure to other specified factors, initial encounter; Y92.234 Operating room of hospital as the place of occurrence of the external cause; E66.9 Obesity, unspecified; Z68.31 Body mass index [BMI] 31.0-31.9, adult
CPT/HCPCS: 36415; 36430; 74018; 74018-26; 80053; 82947; 83605; 83735; 83880; 84100; 84443; 85018; 85025; 85027; 85060; 86140; 86850; 86900; 86901; 86920; 86922; 88304; 93005; 94640; 94762; 97110-GP; 97116-GP; 97162-GP; 97530-GP; A9270-GY; C9113; J0171; J0330; J1100; J1170; J1815; J1940; J2001; J2060; J2185; J2405; J2543; J2704; J2710; J2795; J3010; J3475; J3480; J3490; J7030; J7120; J7612-GY; J7620-GY; P9016

== ENCOUNTER 2020-12-01 22:58 | Emergency (ER) | payer MEDICARE, OTHER ==
[2020-12-01 23:14] VITALS: BP 101/79; PULSE 76
[2020-12-01] MEDS ORDERED: Simethicone 80 MG Tab.Chew PO ONE (23:50)
--- NOTE | 2020-12-01 23:52 | EDM.PDOC ---
ED HPI GENERAL MEDICAL PROBLEM - General Chief Complaint: Gastrointestinal Problem Stated Complaint: TROUBLE BREATHING, STOMACH PAIN Time Seen by Provider: 12/01/20 23:35 Source of Information: Reports: Patient, Family, Old Records History Limitations: Reports: No Limitations - History of Present Illness INITIAL COMMENTS - FREE TEXT/NARRATIVE: 75 yo female is here tonight with her son. She had a cholecystectomy recently and was in a [facility] or assisted living for a couple weeks after that. She is now living with her son who provides much of the hx tonight. Patient herself is not a good historian. Since her surgery she has been having frequent complaints of abdominal nature including inadequate BM's, loose BM's, nausea, and bloating. There has not been a fever. She had a dose of Zofran just before coming in tonight. Last saw Dr. Cabrera this past . Feels a little SOB at times. Has been off trazodone for a few weeks. - Related Data Allergies Allergy/AdvReac Type Severity Reaction Status Date / Time diclofenac [From Voltaren] Allergy Hives Verified 12/01/20 23:24 lisinopril Allergy Hives Verified 12/01/20 23:24 amoxicillin AdvReac Diarrhea Verified 12/01/20 23:24 metformin AdvReac Diarrhea Verified 12/01/20 23:24 Home Meds: Home Meds Albuterol [Ventolin HFA] 2 puff INH Q4HR PRN 12/23/17 [History] Aspirin [Lui Chewable Aspirin] 81 mg PO DAILY 12/23/17 [History] Levothyroxine 112 mcg PO DAILY 12/23/17 [History] Pioglitazone HCl 45 mg PO DAILY 12/23/17 [History] Simvastatin 20 mg PO BEDTIME 12/23/17 [History] SitaGLIPtin [Januvia] 100 mg PO DAILY 12/23/17 [History] diphenhydrAMINE HCL [Unisom] 50 mg PO BEDTIME PRN 12/23/17 [History] glipiZIDE [Glucotrol] 10 mg PO BID 12/23/17 [History] traZODone 50 mg PO BEDTIME 12/23/17 [History] Acetaminophen [Tylenol] 650 mg PO Q6HR tablet 11/01/20 [Rx] Cyclobenzaprine [Flexeril] 10 mg PO Q8H PRN #30 tablet 11/01/20 [Rx] Docusate Sodium [Colace] 200 mg PO Q12H PRN #60 cap 11/01/20 [Rx] Betamethasone/Propylene Glyc [Diprolene 0.05%] 1 applic TOP BID PRN 11/14/20 [History] oxyCODONE 5 mg PO TID PRN 11/14/20 [History] Famotidine [Acid Controller] 20 mg PO BEDTIME #30 tablet 12/02/20 [Rx] Past Medical History HEENT History: Reports: Cataract, Impaired Vision Cardiovascular History: Reports: High Cholesterol, Hypertension Respiratory History: Reports: Asthma Gastrointestinal History: Reports: None SITE IDENTIFICATION SPECIALIST History: Reports: Musculoskeletal History: Reports: Arthritis Neurological History: Reports: None Psychiatric History: Reports: None Endocrine/Metabolic History: Reports: Diabetes, Type II, Hypothyroidism, Obesity/BMI 30+ Hematologic History: Reports: None Immunologic History: Reports: None Oncologic (Cancer) History: Reports: None Dermatologic History: Reports: None - Infectious Disease History Infectious Disease History: Reports: None - Past Surgical History Head Surgeries/Procedures: Reports: None HEENT Surgical History: Reports: None Cardiovascular Surgical History: Reports: None Respiratory Surgical History: Reports: None GI Surgical History: Reports: Cholecystectomy Endocrine Surgical History: Reports: None Musculoskeletal Surgical History: Reports: None Dermatological Surgical History: Reports: None Social & Family History - Family History Family Medical History: Unobtainable - Caffeine Use Caffeine Use: Reports: None ED ROS GENERAL - Review of Systems Review Of Systems: See Below Constitutional: Reports: No Symptoms HEENT: Reports: No Symptoms Respiratory: Reports: No Symptoms Cardiovascular: Reports: No Symptoms GI/Abdominal: Reports: Abdominal Pain, Nausea. Denies: Black Stool, Cons tipation, Diarrhea, Distension, Melena, Vomiting : Reports: No Symptoms Musculoskeletal: Reports: No Symptoms Skin: Reports: No Symptoms Neurological: Reports: No Symptoms ED EXAM, GI/ABD - Physical Exam Exam: See Below Exam Limited By: No Limitations General Appearance: Alert, WD/WN, No Apparent Distress, Obese Eyes: Bilateral: Normal Appearance Ears: Normal External Exam, Normal Canal, Hearing Grossly Normal Nose: Normal Inspection, No Blood Throat/Mouth: Normal Inspection, Normal Lips, Normal Oropharynx, Normal Voice, No Airway Compromise Head: Atraumatic, Normocephalic Neck: Normal Inspection Respiratory/Chest: No Respiratory Distress, Lungs Clear, Normal Breath Sounds, No Accessory Muscle Use Cardiovascular: Regular Rate, Rhythm, No Edema GI/Abdominal Exam: Normal Bowel Sounds, Soft, No Distention, Tender (diffusely including the epigastrium). No: Non-Tender, Distended, Guarding, Rigid, Rebound Extremities: Normal Inspection, Normal Range of Motion, Non-Tender, No Pedal Edema Neurological: Alert, Oriented, CN II-XII Intact, Normal Cognition (poor historian), No Motor/Sensory Deficits. No: Confused Psychiatric: Anxious, Depressed Mood Skin Exam: Warm, Dry, Intact, Normal Color, No Rash Course - Vital Signs Last Recorded V/S: Last Vital Signs Temp 36.6 C 12/01/20 23:27 Pulse 76 12/01/20 23:27 Resp 24 H 12/01/20 23:27 BP 101/79 12/01/20 23:27 Pulse Ox 94 L 12/01/20 23:27 - Orders/Labs/Meds Orders: Active Orders 24 hr Category Date Time Status Abdomen 1V Flat [CR] Stat Exams 12/02/20 00:01 Taken Labs: Laboratory Tests 12/01/20 12/01/20 12/01/20 Range/Units 23:55 23:55 23:55 WBC 6.8 (4.5-11.0) K/uL RBC 4.13 (3.30-5.50) M/uL Hgb 11.5 L (12.0-15.0) g/dL Hct 36.9 (36.0-48.0) % MCV 89 (80-98) fL MCH 28 (27-31) pg MCHC 31 L (32-36) % Plt Count 457 H (150-400) K/uL Sodium 137 L (140-148) mmol/L Potassium 4.0 (3.6-5.2) mmol/L Chloride 101 (100-108) mmol/L Carbon Dioxide 28 (21-32) mmol/L Anion Gap 12.0 (5.0-14.0) mmol/L BUN 16 D (7-18) mg/dL Creatinine 1.3 H (0.6-1.0) mg/dL Est Cr Clr Drug Dosing 33.13 mL/min Estimated GFR (MDRD) 40 L (>60) Glucose 234 H (74-106) mg/dL Calcium 8.8 (8.5-10.1) mg/dL Total Bilirubin 0.7 (0.2-1.0) mg/dL AST 54 H D (15-37) U/L ALT 57 D (12-78) U/L Alkaline Phosphatase 565 H (46-116) U/L Troponin I < 0.017 (0.000-0.056) ng/mL C-Reactive Protein 2.67 H (0.0-0.3) mg/dL Total Protein 6.4 (6.4-8.2) g/dL Albumin 2.0 L (3.4-5.0) g/dL Globulin 4.4 H (2.3-3.5) g/dL Albumin/Globulin Ratio 0.5 L (1.2-2.2) Urine Color (YELLOW) Urine Appearance (CLEAR) Urine pH (5.0-8.0) Ur Specific [place] (1.008-1.030) Urine Protein (NEGATIVE) mg/dL Urine Glucose (UA) (NEGATIVE) mg/dL Urine Ketones (NEGATIVE) mg/dL Urine Occult Blood (NEGATIVE) Urine Nitrite (NEGATIVE) Urine Bilirubin (NEGATIVE) Urine Urobilinogen (0.2-1.0) EU/dL Ur Leukocyte Esterase (NEGATIVE) Urine RBC (0-5) Urine WBC (0-5) Ur Epithelial Cells Amorphous Sediment Urine Bacteria Urine Mucus 12/02/ Range/Units 00:28 WBC (4.5-11.0) K/uL RBC (3.30-5.50) M/uL Hgb (12.0-15.0) g/dL Hct (36.0-48.0) % MCV (80-98) fL MCH (27-31) pg MCHC (32-36) % Plt Count (150-400) K/uL Sodium (140-148) mmol/L Potassium (3.6-5.2) mmol/L Chloride (100-108) mmol/L Carbon Dioxide (21-32) mmol/L Anion Gap (5.0-14.0) mmol/L BUN (7-18) mg/dL Creatinine (0.6-1.0) mg/dL Est Cr Clr Drug Dosing mL/min Estimated GFR (MDRD) (>60) Glucose (74-106) mg/dL Calcium (8.5-10.1) mg/dL Total Bilirubin (0.2-1.0) mg/dL AST (15-37) U/L ALT (12-78) U/L Alkaline Phosphatase (46-116) U/L Troponin I (0.000-0.056) ng/mL C-Reactive Protein (0.0-0.3) mg/dL Total Protein (6.4-8.2) g/dL Albumin (3.4-5.0) g/dL Globulin (2.3-3.5) g/dL Albumin/Globulin Ratio (1.2-2.2) Urine Color Yellow (YELLOW) Urine Appearance Clear (CLEAR) Urine pH 8.5 H (5.0-8.0) Ur Specific [place] 1.020 (1.008-1.030) Urine Protein Negative (NEGATIVE) mg/dL Urine Glucose (UA) Negative (NEGATIVE) mg/dL Urine Ketones Negative (NEGATIVE) mg/dL Urine Occult Blood Negative (NEGATIVE) Urine Nitrite Negative (NEGATIVE) Urine Bilirubin Negative (NEGATIVE) Urine Urobilinogen 1.0 (0.2-1.0) EU/dL Ur Leukocyte Esterase Negative (NEGATIVE) Urine RBC 0-5 (0-5) Urine WBC 0-5 (0-5) Ur Epithelial Cells Not seen Amorphous Sediment Few Urine Bacteria Rare Urine Mucus Not seen Meds: Medications Discontinued Medications Generic Name Dose Route Start Last Admin Trade Name Freq PRN Reason Stop Dose Admin Acetaminophen 1,000 mg 12/02/20 01:10 Acetaminophen 500 Mg Tab PO 12/02/20 01:11 ONETIME ONE Al Hydroxide/Mg Hydroxide 30 ml 12/02/20 01:11 Aluminum Hydroxide/Magnesium Hydroxide/Simethicone Susp 30 Ml Cup PO 12/02/20 01:12 NOW STA Famotidine 20 mg 12/02/20 01:10 Famotidine 20 Mg Tab PO 12/02/20 01:11 ONETIME ONE Simethicone 160 mg 12/01/20 23:50 12/01/20 23:53 Simethicone 80 Mg Tab.Chew PO 12/01/20 23:51 160 mg ONETIME ONE Administration - Radiology Interpretation Free Text/Narrative:: KUB-scattered air, no acute pathology - Re-Assessments/Exams Free Text/Narrative Re-Assessment/Exam: 12/02/20 01:38 Seemed to get partial relief from both the simethicone and the Maalox. Departure - Departure Time of Disposition: 01:32 Disposition: Home, Self-Care 01 Condition: Fair Clinical Impression: Nausea Gastritis Qualifiers: Gastritis type: superficial Chronicity: acute Gastritis bleeding: without bleeding Qualified Code(s): K29.00 - Acute gastritis without bleeding - Discharge Information *PRESCRIPTION DRUG MONITORING PROGRAM REVIEWED*: Not Applicable *COPY OF PRESCRIPTION DRUG MONITORING REPORT IN PATIENT JUDI: Not Applicable Instructions: Gastritis, Adult, [id number] Referrals: Greg Cabrera MD [Primary Care Provider] - Forms: ED Department Discharge Additional Instructions: Zofran as needed for nausea control. Famotidine 20 mg at bedtime. Acetaminophen up to 1000 mg every 6 hrs for pain relief. Simethicone per package instructions for gas pains. Maalox 30 ml after meals and bedtime for stomach pain(causes loose stools) or Peptobismol per package instructions( causes black and thicker stools). Use Miralax as needed for hard stools or constipation with ample water, this should be sufficient and you shouldn't need a stool softener. F/U with Drs. Cabrera and Mario for further evaluation as needed. Return if worse. Consider that some of this could be depression. Her trazodone was stopped recently and it is an antidepressant. Sepsis Event Note (ED) - Evaluation Sepsis Screening Result: No Definite Risk - Focused Exam Vital Signs: Vital Signs Temp Pulse Resp BP Pulse Ox 12/01/20 23:27 36.6 C 76 24 H 101/79 94 L 12/01/20 23:13 36.6 C 76 24 H 101/79 94 L - My Orders Last 24 Hours: My Active Orders 12/02/20 00:01 Abdomen 1V Flat [CR] Stat - Assessment/Plan Last 24 Hours: My Active Orders 12/02/20 00:01 Abdomen 1V Flat [CR] Stat
[2020-12-02] MEDS ORDERED: Famotidine 20 MG Tab PO ONE (01:10)
[2020-12-02] MEDS ORDERED: Acetaminophen 500 MG Tab PO ONE (01:10)
[2020-12-02] MEDS ORDERED: Aluminum Hydroxide/Magnesium Hydroxide/Simethicone Susp 30 ML Cup PO STA (01:11)
--- NOTE | 2020-12-03 09:48 | CR ---
Abdomen 1V Flat CLINICAL HISTORY: Abdominal pain FINDINGS: Patient has had previous right upper quadrant surgery. Small intestinal gas pattern is nonacute. There is gas and feces throughout the colon. IMPRESSION: Nonacute intestinal gas pattern
== END 2020-12-02 01:53 | disposition home or self-care (01) ==
LOC: JP.ED 22:58
DX: K29.00 Acute gastritis without bleeding (principal); E78.00 Pure hypercholesterolemia, unspecified; I10 Essential (primary) hypertension; J45.909 Unspecified asthma, uncomplicated; M19.90 Unspecified osteoarthritis, unspecified site; E11.9 Type 2 diabetes mellitus without complications; E03.9 Hypothyroidism, unspecified; E66.9 Obesity, unspecified; Z68.33 Body mass index [BMI] 33.0-33.9, adult; Z90.49 Acquired absence of other specified parts of digestive tract; Z88.8 Allergy status to other drugs, medicaments and biological substances; Z88.0 Allergy status to penicillin; Z79.82 Long term (current) use of aspirin; Z79.84 Long term (current) use of oral hypoglycemic drugs; Z79.899 Other long term (current) drug therapy
CPT/HCPCS: 36415; 74018; 80053; 81001; 84484; 85027; 86140; 99284; A9270

== ENCOUNTER 2022-12-13 11:07 | Emergency (ER) | payer MEDICARE, OTHER ==
[2022-12-13] MEDS ORDERED: Sodium Chloride 0.9% 1,000 ML IV SCH (12:15)
[2022-12-13 12:23] LABS: APPEARANCE,URINE CLOUDY (CLEAR); BILIRUBIN,URINE NEGATIVE (NEGATIVE); COLOR,URINE YELLOW (YELLOW); GLUCOSE,URINE 500 mg/dL (NEGATIVE); KETONES,URINE NEGATIVE (NEGATIVE); LEUKOCYTE ESTERASE,URINE SMALL (NEGATIVE); NITRITE,URINE POSITIVE (NEGATIVE); OCCULT BLOOD,URINE TRACE-INTACT (NEGATIVE); PH,URINE 6.5 (5.0-8.0); PROTEIN,URINE NEGATIVE (NEGATIVE); UROBILINOGEN,URINE 0.2 EU/dL (0.2-1.0)
[2022-12-13 12:29] LABS: BASOPHILS ABSOLUTE AUTO 0.07 K/uL (0.00-0.10); BASOPHILS PERCENT AUTO 0.8 % (0.1-1.3); EOSINOPHILS ABSOLUTE AUTO 0.09 K/uL (0.00-0.40); HEMATOCRIT 47.5 % (34.3-46.0); HEMOGLOBIN 15.6 g/dL (11.2-15.5); IMMATURE GRAN ABSOLUTE AUTO 0.08 K/uL (0.00-0.23); IMMATURE GRAN PERCENT AUTO 0.9 % (0.0-0.7); LYMPHOCYTES ABSOLUTE AUTO 1.51 K/uL (0.8-3.3); LYMPHOCYTES PERCENT AUTO 16.6 % (11.4-47.7); MEAN CORPUSCULAR HEMOGLOBIN 29.2 pg (31.6-35.5); MEAN CORPUSCULAR HGB CONC 32.8 g/dL (31.6-35.5); MEAN CORPUSCULAR VOLUME 88.8 fL (81.4-99.0); MONOCYTES ABSOLUTE AUTO 0.93 K/uL (0.20-0.90); MONOCYTES PERCENT AUTO 10.3 % (3.3-12.6); NEUTROPHILS ABSOLUTE AUTO 6.39 K/uL (1.0-7.6); NEUTROPHILS PERCENT AUTO 70.4 % (40.0-78.1); PLATELET COUNT,PLT 282 K/uL (130-375); RED BLOOD CELL COUNT 5.35 M/uL (3.77-5.24); WHITE BLOOD CELL COUNT,WBC 9.1 K/uL (3.2-11.0)
[2022-12-13 12:29] LABS: AMORPHOUS SEDIMENT,URINE NOT SEEN; BACTERIA,URINE MANY; EPITHELIAL CELLS,URINE FEW; MUCUS,URINE NOT SEEN; RBC,URINE 0-5 (0-5); WBC,URINE 20-30 (0-5)
[2022-12-13 12:50] LABS: A/G RATIO 0.8 (1.2-2.2); ALANINE AMINOTRANSFERASE,ALT 19 U/L (12-78); ALBUMIN 3.1 g/dL (3.4-5.0); ALKALINE PHOSPHATASE 83 U/L (46-116); ASPARTATE AMNIOTRANSFERASE,AST 11 U/L (15-37); BILIRUBIN TOTAL 0.7 mg/dL (0.2-1.0); BLOOD UREA NITROGEN,BUN 21 mg/dL (7-18); CALCIUM 9.4 mg/dL (8.5-10.1); CARBON DIOXIDE,CO2 28 mmol/L (21-32); CHLORIDE,CL 100 mmol/L (100-108); CREATININE 1.3 mg/dL (0.6-1.0); EST CRCL DRUG DOSING (CG) 32.09 mL/min; ESTIMATED GFR 42 mL/min (>60); GLUCOSE RANDOM 258 mg/dL (74-106); POTASSIUM,K 3.8 mmol/L (3.6-5.2); SODIUM,NA 138 mmol/L (140-148)
[2022-12-13 12:52] LABS: ANION GAP 13.8 mmol/L (5.0-14.0)
[2022-12-13 14:05] VITALS: BP 151/104; PULSE 71
== END 2022-12-13 14:55 | disposition home or self-care (01) ==
LOC: JP.ED 11:07
DX: N30.00 Acute cystitis without hematuria (principal); E78.00 Pure hypercholesterolemia, unspecified; I10 Essential (primary) hypertension; J45.909 Unspecified asthma, uncomplicated; E11.9 Type 2 diabetes mellitus without complications; E03.9 Hypothyroidism, unspecified; E66.9 Obesity, unspecified; Z88.8 Allergy status to other drugs, medicaments and biological substances; Z88.0 Allergy status to penicillin; Z79.51 Long term (current) use of inhaled steroids; Z79.82 Long term (current) use of aspirin; Z79.4 Long term (current) use of insulin; Z79.899 Other long term (current) drug therapy; Z68.33 Body mass index [BMI] 33.0-33.9, adult
CPT/HCPCS: 36415; 80053; 81001; 85025; 87086; 87088; 87186; 96360; 96361; 99284; J7030

== ENCOUNTER 2023-06-07 20:17 | Emergency (ER) | payer MEDICARE, OTHER ==
[2023-06-07 21:20] LABS: BASOPHILS ABSOLUTE AUTO 0.04 K/uL (0.00-0.10); BASOPHILS PERCENT AUTO 0.4 % (0.1-1.3); EOSINOPHILS ABSOLUTE AUTO 0.03 K/uL (0.00-0.40); EOSINOPHILS PERCENT AUTO 0.3 % (0.0-5.4); HEMOGLOBIN 15.4 g/dL (11.2-15.5); IMMATURE GRAN ABSOLUTE AUTO 0.04 K/uL (0.00-0.23); IMMATURE GRAN PERCENT AUTO 0.4 % (0.0-0.7); LYMPHOCYTES ABSOLUTE AUTO 1.69 K/uL (0.8-3.3); LYMPHOCYTES PERCENT AUTO 15.3 % (11.4-47.7); MEAN CORPUSCULAR HEMOGLOBIN 29.3 pg (31.6-35.5); MEAN CORPUSCULAR HGB CONC 34.2 g/dL (31.6-35.5); MEAN CORPUSCULAR VOLUME 85.6 fL (81.4-99.0); MONOCYTES PERCENT AUTO 11.8 % (3.3-12.6); NEUTROPHILS ABSOLUTE AUTO 7.93 K/uL (1.0-7.6); NEUTROPHILS PERCENT AUTO 71.8 % (40.0-78.1); PLATELET COUNT,PLT 292 K/uL (130-375); RED BLOOD CELL COUNT 5.26 M/uL (3.77-5.24)
[2023-06-07 21:23] LABS: CORONAVIRUS COVID-19 NAA NEGATIVE (NEGATIVE); INFLUENZA A NAA NEGATIVE (NEGATIVE); INFLUENZA B NAA NEGATIVE (NEGATIVE); RESPIRATORY SYNCYTIAL VIR NAA NEGATIVE (NEGATIVE)
[2023-06-07 21:39] LABS: A/G RATIO 1.1 (1.2-2.2); ALANINE AMINOTRANSFERASE,ALT 16 U/L (12-78); ALBUMIN 3.2 g/dL (3.4-5.0); ALKALINE PHOSPHATASE 89 U/L (46-116); ASPARTATE AMNIOTRANSFERASE,AST 14 U/L (15-37); BLOOD UREA NITROGEN,BUN 23 mg/dL (7-18); CALCIUM 8.7 mg/dL (8.5-10.1); CARBON DIOXIDE,CO2 27 mmol/L (21-32); CHLORIDE,CL 99 mmol/L (100-108); CREATININE 1.3 mg/dL (0.6-1.0); ESTIMATED GFR 42 mL/min (>60); GLUCOSE RANDOM 351 mg/dL (74-106); POTASSIUM,K 4.1 mmol/L (3.6-5.2); PROTEIN TOTAL,TP 6.2 g/dL (6.4-8.2); SODIUM,NA 136 mmol/L (140-148)
[2023-06-07 21:41] LABS: ANION GAP 14.1 mmol/L (5.0-14.0)
[2023-06-07 21:45] LABS: APPEARANCE,URINE CLEAR (CLEAR); BILIRUBIN,URINE NEGATIVE (NEGATIVE); COLOR,URINE YELLOW (YELLOW); GLUCOSE,URINE 500 mg/dL (NEGATIVE); KETONES,URINE 15 mg/dL (NEGATIVE); LEUKOCYTE ESTERASE,URINE NEGATIVE (NEGATIVE); NITRITE,URINE NEGATIVE (NEGATIVE); OCCULT BLOOD,URINE NEGATIVE (NEGATIVE); PROTEIN,URINE NEGATIVE (NEGATIVE)
[2023-06-07 21:58] VITALS: BP 154/81; PULSE 77
[2023-06-07 21:58] LABS: AMORPHOUS SEDIMENT,URINE NOT SEEN; BACTERIA,URINE RARE; EPITHELIAL CELLS,URINE RARE; MUCUS,URINE RARE; RBC,URINE 0-5 (0-5); WBC,URINE 0-5 (0-5)
== END 2023-06-07 22:21 | disposition home or self-care (01) ==
LOC: JP.ED 20:17
DX: R53.1 Weakness (principal); I10 Essential (primary) hypertension; J45.909 Unspecified asthma, uncomplicated; E78.00 Pure hypercholesterolemia, unspecified; E66.9 Obesity, unspecified; E11.9 Type 2 diabetes mellitus without complications; E03.9 Hypothyroidism, unspecified; Z88.0 Allergy status to penicillin; Z88.8 Allergy status to other drugs, medicaments and biological substances; Z79.899 Other long term (current) drug therapy; Z79.4 Long term (current) use of insulin; Z68.30 Body mass index [BMI] 30.0-30.9, adult
CPT/HCPCS: 0241U; 36415; 71046; 71046-26; 80053; 81001; 85025; 99284; 99285

== ENCOUNTER 2023-06-11 17:44 | Observation (INO) | payer MEDICARE, OTHER ==
[2023-06-11] MEDS ORDERED: Sodium Chloride 0.9% 1,000 ML IV ONE (19:06)
[2023-06-11 19:22] LABS: BASOPHILS ABSOLUTE AUTO 0.04 K/uL (0.00-0.10); BASOPHILS PERCENT AUTO 0.5 % (0.1-1.3); EOSINOPHILS ABSOLUTE AUTO 0.03 K/uL (0.00-0.40); EOSINOPHILS PERCENT AUTO 0.4 % (0.0-5.4); HEMATOCRIT 48.2 % (34.3-46.0); HEMOGLOBIN 15.9 g/dL (11.2-15.5); IMMATURE GRAN ABSOLUTE AUTO 0.03 K/uL (0.00-0.23); IMMATURE GRAN PERCENT AUTO 0.4 % (0.0-0.7); LYMPHOCYTES ABSOLUTE AUTO 1.72 K/uL (0.8-3.3); LYMPHOCYTES PERCENT AUTO 22.2 % (11.4-47.7); MEAN CORPUSCULAR HEMOGLOBIN 28.9 pg (31.6-35.5); MEAN CORPUSCULAR VOLUME 87.6 fL (81.4-99.0); MONOCYTES ABSOLUTE AUTO 1.08 K/uL (0.20-0.90); MONOCYTES PERCENT AUTO 13.9 % (3.3-12.6); NEUTROPHILS ABSOLUTE AUTO 4.85 K/uL (1.0-7.6); NEUTROPHILS PERCENT AUTO 62.6 % (40.0-78.1); PLATELET COUNT,PLT 278 K/uL (130-375); WHITE BLOOD CELL COUNT,WBC 7.8 K/uL (3.2-11.0)
[2023-06-11 19:49] LABS: C-REACTIVE PROTEIN < 0.50 mg/dL (<0.50); TROPONIN I HIGH SENSITIVITY 7.1 pg/mL (<=60.3)
[2023-06-11 19:52] LABS: A/G RATIO 1.1 (1.2-2.2); ALANINE AMINOTRANSFERASE,ALT 22 U/L (12-78); ALBUMIN 3.5 g/dL (3.4-5.0); ALKALINE PHOSPHATASE 70 U/L (46-116); ASPARTATE AMNIOTRANSFERASE,AST 22 U/L (15-37); BILIRUBIN TOTAL 0.9 mg/dL (0.2-1.0); BLOOD UREA NITROGEN,BUN 19 mg/dL (7-18); CARBON DIOXIDE,CO2 25 mmol/L (21-32); CHLORIDE,CL 101 mmol/L (100-108); CREATININE 1.5 mg/dL (0.6-1.0); EST CRCL DRUG DOSING (CG) 26.26 mL/min; ESTIMATED GFR 35 mL/min (>60); GLUCOSE RANDOM 266 mg/dL (74-106); POTASSIUM,K 4.3 mmol/L (3.6-5.2); PROTEIN TOTAL,TP 6.8 g/dL (6.4-8.2); SODIUM,NA 139 mmol/L (140-148)
[2023-06-11 19:53] LABS: ANION GAP 17.3 mmol/L (5.0-14.0)
[2023-06-11 20:05] LABS: CORONAVIRUS COVID-19 NAA NEGATIVE (NEGATIVE); INFLUENZA A NAA NEGATIVE (NEGATIVE); INFLUENZA B NAA NEGATIVE (NEGATIVE); RESPIRATORY SYNCYTIAL VIR NAA NEGATIVE (NEGATIVE)
[2023-06-11 20:37] LABS: APPEARANCE,URINE SLIGHTLY CLOUDY (CLEAR); BILIRUBIN,URINE NEGATIVE (NEGATIVE); COLOR,URINE YELLOW (YELLOW); GLUCOSE,URINE 500 mg/dL (NEGATIVE); KETONES,URINE 15 mg/dL (NEGATIVE); LEUKOCYTE ESTERASE,URINE NEGATIVE (NEGATIVE); NITRITE,URINE NEGATIVE (NEGATIVE); OCCULT BLOOD,URINE NEGATIVE (NEGATIVE); PH,URINE 6.5 (5.0-8.0); PROTEIN,URINE NEGATIVE (NEGATIVE); UROBILINOGEN,URINE 0.2 EU/dL (0.2-1.0)
[2023-06-11 20:43] LABS: AMORPHOUS SEDIMENT,URINE NOT SEEN; BACTERIA,URINE FEW; EPITHELIAL CELLS,URINE FEW; MUCUS,URINE NOT SEEN; RBC,URINE 0-5 (0-5); WBC,URINE 0-5 (0-5)
[2023-06-11] MEDS ORDERED: Melatonin 3 MG Tab PO PRN (22:47)
[2023-06-11] MEDS ORDERED: Sennosides/Docusate Sodium 50-8.6 MG Tab PO PRN (22:47)
[2023-06-11] MEDS ORDERED: Acetaminophen 325 MG Tab PO PRN (22:47)
[2023-06-11] MEDS ORDERED: Ondansetron 4 MG Tab.DIS PO PRN (22:47)
[2023-06-11] MEDS ORDERED: Magnesium Hydroxide 400 MG/5 ML Susp 30 ML Cup PO PRN (22:47)
[2023-06-11] MEDS ORDERED: Insulin Lispro 100 Unit/ML 3 ML KwikPen SUBCUT SCH (23:00)
[2023-06-11] MEDS ORDERED: Glucagon,Human Recombinant 1 MG Vial IM PRN (23:01)
[2023-06-11] MEDS ORDERED: 50% Dextrose in Water 50 ML Syringe IVPUSH PRN (23:01)
[2023-06-11] MEDS ORDERED: Insulin Glargine,Human Rec. Analog 100 Units/ML 3 ML Pen SUBCUT SCH (23:15)
[2023-06-11] MEDS ORDERED: Ciprofloxacin 500 MG Tab PO SCH ×2 (23:15→23:30)
[2023-06-11] MEDS ORDERED: traZODone 50 MG Tab PO SCH (23:30)
[2023-06-11] MEDS ORDERED: atorvaSTATin 10 MG Tab PO SCH (23:30)
[2023-06-11] MEDS: Sodium Chloride 0.9% 1,000 ML IV SCH (23:45)
[2023-06-11] MEDS: metroNIDAZOLE 250 MG Tab PO SCH (23:48)
[2023-06-12 05:04] VITALS: PULSE 73
[2023-06-12 05:43] LABS: BASOPHILS ABSOLUTE AUTO 0.04 K/uL (0.00-0.10); BASOPHILS PERCENT AUTO 0.6 % (0.1-1.3); EOSINOPHILS ABSOLUTE AUTO 0.08 K/uL (0.00-0.40); EOSINOPHILS PERCENT AUTO 1.3 % (0.0-5.4); HEMOGLOBIN 13.9 g/dL (11.2-15.5); IMMATURE GRAN ABSOLUTE AUTO 0.03 K/uL (0.00-0.23); IMMATURE GRAN PERCENT AUTO 0.5 % (0.0-0.7); LYMPHOCYTES ABSOLUTE AUTO 1.93 K/uL (0.8-3.3); LYMPHOCYTES PERCENT AUTO 30.5 % (11.4-47.7); MEAN CORPUSCULAR HEMOGLOBIN 28.9 pg (31.6-35.5); MEAN CORPUSCULAR HGB CONC 33.1 g/dL (31.6-35.5); MEAN CORPUSCULAR VOLUME 87.3 fL (81.4-99.0); MONOCYTES ABSOLUTE AUTO 0.91 K/uL (0.20-0.90); MONOCYTES PERCENT AUTO 14.4 % (3.3-12.6); NEUTROPHILS ABSOLUTE AUTO 3.33 K/uL (1.0-7.6); NEUTROPHILS PERCENT AUTO 52.7 % (40.0-78.1); PLATELET COUNT,PLT 238 K/uL (130-375); RED BLOOD CELL COUNT 4.81 M/uL (3.77-5.24); WHITE BLOOD CELL COUNT,WBC 6.3 K/uL (3.2-11.0)
[2023-06-12 06:03] LABS: ANION GAP 11.9 mmol/L (5.0-14.0); CALCIUM 8.2 mg/dL (8.5-10.1); CREATININE 1.2 mg/dL (0.6-1.0); EST CRCL DRUG DOSING (CG) 32.83 mL/min; POTASSIUM,K 3.8 mmol/L (3.6-5.2)
[2023-06-12] MEDS ORDERED: Levothyroxine 112 MCG Tab PO SCH (07:30)
[2023-06-12] MEDS: Sodium Chloride 0.9% 1,000 ML IV SCH (07:45)
[2023-06-12] MEDS: Insulin Lispro 100 Unit/ML 3 ML KwikPen SUBCUT SCH ×2 (07:52→11:28)
[2023-06-12] MEDS ORDERED: Ciprofloxacin 500 MG Tab PO SCH (08:00)
[2023-06-12] MEDS: metroNIDAZOLE 250 MG Tab PO SCH (08:34)
[2023-06-12 08:52] LABS: HEMOGLOBIN A1C 9.1 % (4.5-6.2)
[2023-06-12] MEDS ORDERED: Aspirin 81 MG Tab.EC PO SCH (09:00)
[2023-06-12] MEDS ORDERED: Escitalopram 10 MG Tab PO SCH (09:45)
[2023-06-12 10:07] VITALS: BP 135/51
[2023-06-12] MEDS ORDERED: SIMVASTATIN PO SCH (21:00)
[2023-06-12] MEDS ORDERED: traZODone 50 MG Tab PO SCH (21:00)
== END 2023-06-12 11:59 | disposition home or self-care (01) ==
LOC: JP.ED 17:44 → JP.MS 22:37
PROVIDERS: ADMIT Registered Nurse; ATTEND Hospitalist
DX: R53.1 Weakness (principal); E11.22 Type 2 diabetes mellitus with diabetic chronic kidney disease; E11.9 Type 2 diabetes mellitus without complications; E11.65 Type 2 diabetes mellitus with hyperglycemia; I82.409 Acute embolism and thrombosis of unspecified deep veins of unspecified lower extremity; J44.9 Chronic obstructive pulmonary disease, unspecified; Z88.6 Allergy status to analgesic agent; Z88.0 Allergy status to penicillin; Z88.8 Allergy status to other drugs, medicaments and biological substances; Z79.899 Other long term (current) drug therapy
CPT/HCPCS: 0241U; 36415; 70450; 71046; 74176; 80048; 80053; 81001; 82947; 83036; 83605; 83690; 83880; 84443; 84484; 85025; 86140; 93005; 96360; 99285; A9270; J1815; J7030; Q0162; 96361; G0378

== ENCOUNTER 2024-06-27 15:54 | Inpatient (IN) | payer MEDICARE, OTHER ==
[2024-06-27] MEDS: HYDROmorphone 0.5 MG/0.5 ML Syringe IVPUSH ONE (16:54)
[2024-06-27 16:55] LABS: BASOPHILS ABSOLUTE AUTO 0.06 K/uL (0.00-0.10); BASOPHILS PERCENT AUTO 0.4 % (0.1-1.3); EOSINOPHILS ABSOLUTE AUTO 0.01 K/uL (0.00-0.40); EOSINOPHILS PERCENT AUTO 0.1 % (0.0-5.4); HEMATOCRIT 51.5 % (34.3-46.0); HEMOGLOBIN 16.8 g/dL (11.2-15.5); IMMATURE GRAN PERCENT AUTO 0.7 % (0.0-0.7); LYMPHOCYTES ABSOLUTE AUTO 0.77 K/uL (0.8-3.3); LYMPHOCYTES PERCENT AUTO 5.1 % (11.4-47.7); MEAN CORPUSCULAR HEMOGLOBIN 29.7 pg (31.6-35.5); MEAN CORPUSCULAR HGB CONC 32.6 g/dL (31.6-35.5); MEAN CORPUSCULAR VOLUME 91.2 fL (81.4-99.0); MONOCYTES ABSOLUTE AUTO 1.69 K/uL (0.20-0.90); MONOCYTES PERCENT AUTO 11.2 % (3.3-12.6); NEUTROPHILS ABSOLUTE AUTO 12.45 K/uL (1.0-7.6); NEUTROPHILS PERCENT AUTO 82.5 % (40.0-78.1); PLATELET COUNT,PLT 242 K/uL (130-375); RED BLOOD CELL COUNT 5.65 M/uL (3.77-5.24); WHITE BLOOD CELL COUNT,WBC 15.1 K/uL (3.2-11.0)
[2024-06-27] MEDS: Sodium Chloride 0.9% 1,000 ML IV ONE (17:02)
[2024-06-27 17:08] LABS: CALCIUM 9.2 mg/dL (8.5-10.1); CREATININE 1.5 mg/dL (0.6-1.0); EST CRCL DRUG DOSING (CG) 26.92 mL/min; POTASSIUM,K 5.2 mmol/L (3.6-5.2)
[2024-06-27 17:11] LABS: ANION GAP 16.2 mmol/L (5.0-14.0)
[2024-06-27] MEDS ORDERED: Magnesium Hydroxide 400 MG/5 ML Susp 30 ML Cup PO PRN (18:57)
[2024-06-27] MEDS ORDERED: Ondansetron 4 MG Tab.DIS PO PRN (18:57)
[2024-06-27] MEDS ORDERED: Ondansetron 4 MG/2 ML SDV IV PRN (18:57)
[2024-06-27] MEDS ORDERED: Albuterol 0.083% 2.5 MG/3 ML Neb Soln NEB PRN (18:57)
[2024-06-27] MEDS: HYDROmorphone 0.5 MG/0.5 ML Syringe IVPUSH PRN (19:14)
[2024-06-27] MEDS ORDERED: SIMVASTATIN PO SCH (21:00)
[2024-06-27] MEDS: Docusate Sodium 100 MG Cap PO SCH (21:09)
[2024-06-27] MEDS: atorvaSTATin 10 MG Tab PO SCH (21:15)
[2024-06-27] MEDS: Acetaminophen 500 MG Tab PO SCH (21:15)
[2024-06-27] MEDS: Insulin Lispro 100 Unit/ML 3 ML KwikPen SUBCUT SCH (21:15)
[2024-06-27] MEDS: traZODone 50 MG Tab PO SCH (21:18)
[2024-06-28] MEDS: oxyCODONE 5 MG Tab PO PRN (02:28)
[2024-06-28 05:46] LABS: HEMATOCRIT 45.5 % (34.3-46.0); HEMOGLOBIN 14.5 g/dL (11.2-15.5); MEAN CORPUSCULAR HEMOGLOBIN 29.6 pg (31.6-35.5); MEAN CORPUSCULAR HGB CONC 31.9 g/dL (31.6-35.5); MEAN CORPUSCULAR VOLUME 92.9 fL (81.4-99.0); RED BLOOD CELL COUNT 4.9 M/uL (3.77-5.24)
[2024-06-28 06:04] LABS: BLOOD UREA NITROGEN,BUN 26 mg/dL (7-18); CALCIUM 8.4 mg/dL (8.5-10.1); CARBON DIOXIDE,CO2 27 mmol/L (21-32); CHLORIDE,CL 108 mmol/L (100-108); CREATININE 1.3 mg/dL (0.6-1.0); ESTIMATED GFR 42 mL/min (>60); GLUCOSE RANDOM 207 mg/dL (74-106); POTASSIUM,K 4.8 mmol/L (3.6-5.2); SODIUM,NA 143 mmol/L (140-148)
[2024-06-28] MEDS: Levothyroxine 100 MCG Tab PO SCH (07:39)
[2024-06-28] MEDS: Levothyroxine 25 MCG Tab PO SCH (07:39)
[2024-06-28] MEDS: Aspirin 81 MG Tab.Chew PO SCH (08:11)
[2024-06-28] MEDS: Escitalopram 10 MG Tab PO SCH (08:17)
[2024-06-28] MEDS: Sodium Chloride 0.9% 1,000 ML IV SCH (08:26)
[2024-06-28] MEDS ORDERED: Non-Formulary Medication 1 Each (Fluticasone/Umeclidin/Vilanter [Trelegy Ellipta 100-62.5- INH SCH (09:00)
[2024-06-28] MEDS: Tiotropium Bromide 4 GM Inhalation Spray (2.5mcg/1 dose; 10 doses) INH SCH (09:15)
[2024-06-28] MEDS: Formoterol/Mometasone 100-5 MCG 8.8 GM Inhaler INH SCH (09:15)
[2024-06-28] MEDS: HYDROmorphone 0.5 MG/0.5 ML Syringe IVPUSH PRN (11:04)
[2024-06-28] MEDS ORDERED: Bupivacaine 0.5% 50 ML MDV ONE (11:34)
[2024-06-28] MEDS ORDERED: fentaNYL 100 MCG/2 ML SDV ONE (16:10)
[2024-06-28] MEDS ORDERED: Propofol 200 MG/20 ML SDV ONE ×2 (16:11→17:22)
[2024-06-28] MEDS: ceFAZolin 2 GM in Premix Bag 1 BAG IV ONE (16:35)
[2024-06-28] MEDS ORDERED: oxyCODONE 5 MG Tab PO PRN (18:14)
[2024-06-29 06:13] LABS: HEMOGLOBIN 13.8 g/dL (11.2-15.5); MEAN CORPUSCULAR HEMOGLOBIN 29.4 pg (31.6-35.5); MEAN CORPUSCULAR HGB CONC 30.7 g/dL (31.6-35.5); MEAN CORPUSCULAR VOLUME 95.7 fL (81.4-99.0); RED BLOOD CELL COUNT 4.7 M/uL (3.77-5.24); WHITE BLOOD CELL COUNT,WBC 10.6 K/uL (3.2-11.0)
[2024-06-29 06:26] LABS: CALCIUM 8.4 mg/dL (8.5-10.1); CREATININE 1.4 mg/dL (0.6-1.0); EST CRCL DRUG DOSING (CG) 28.84 mL/min; POTASSIUM,K 5.2 mmol/L (3.6-5.2)
[2024-06-29 06:30] LABS: ANION GAP 22.2 mmol/L (5.0-14.0)
[2024-06-29] MEDS: oxyCODONE 5 MG Tab PO PRN (07:49)
[2024-06-29] MEDS: traMADol 50 MG Tab PO PRN (14:44)
[2024-06-30 05:52] LABS: HEMATOCRIT 40.4 % (34.3-46.0); MEAN CORPUSCULAR HGB CONC 32.2 g/dL (31.6-35.5); MEAN CORPUSCULAR VOLUME 93.1 fL (81.4-99.0); RED BLOOD CELL COUNT 4.34 M/uL (3.77-5.24); WHITE BLOOD CELL COUNT,WBC 9.7 K/uL (3.2-11.0)
[2024-06-30 06:07] LABS: ANION GAP 11.9 mmol/L (5.0-14.0); CALCIUM 8.9 mg/dL (8.5-10.1); CREATININE 1.3 mg/dL (0.6-1.0); EST CRCL DRUG DOSING (CG) 31.06 mL/min; POTASSIUM,K 4.4 mmol/L (3.6-5.2)
[2024-06-30] MEDS: Ketorolac 15 MG/ML SDV IVPUSH PRN (08:05)
[2024-06-30] MEDS: Levothyroxine 100 MCG, Levothyroxine 25 MCG PO SCH (08:05)
[2024-06-30] MEDS: Ketorolac 15 MG/ML SDV IM PRN (09:14)
[2024-06-30] MEDS: Insulin Lispro 100 Unit/ML 3 ML KwikPen SUBCUT SCH ×2 (16:43)
[2024-07-01] MEDS: glipiZIDE 5 MG Tab.ER PO SCH (07:09)
[2024-07-01] MEDS: Empagliflozin 25 MG Tab PO SCH (08:30)
[2024-07-01] MEDS: Sennosides/Docusate Sodium 50-8.6 MG Tab PO PRN (10:12)
[2024-07-01] MEDS: Aspirin 325 MG Tab.EC PO SCH (20:21)
[2024-07-01] MEDS ORDERED: Dextrose 5%-Lactated Ringers 1,000 ML IV SCH (21:15)
[2024-07-04 11:42] VITALS: BP 137/53; PULSE 70
== END 2024-07-04 12:15 | DRG 522 ==
LOC: JP.ED 15:54 → JP.MS 17:09
PROVIDERS: ADMIT Internal Medicine; ATTEND Internal Medicine
PROC: 0SRS0JA Replacement of Left Hip Joint, Femoral Surface with Synthetic Substitute, Uncemented, Open Approach (ICD-10-PCS; principal; 2024-06-28 16:00)
DX: S72.001A Fracture of unspecified part of neck of right femur, initial encounter for closed fracture (principal); I10 Essential (primary) hypertension; S72.002A Fracture of unspecified part of neck of left femur, initial encounter for closed fracture; J45.909 Unspecified asthma, uncomplicated; E78.00 Pure hypercholesterolemia, unspecified; M19.90 Unspecified osteoarthritis, unspecified site; E11.9 Type 2 diabetes mellitus without complications; E03.9 Hypothyroidism, unspecified; Z88.0 Allergy status to penicillin; Z66 Do not resuscitate; E66.9 Obesity, unspecified; J44.9 Chronic obstructive pulmonary disease, unspecified; Z79.890 Hormone replacement therapy; H54.7 Unspecified visual loss; W19.XXXA Unspecified fall, initial encounter; Z68.33 Body mass index [BMI] 33.0-33.9, adult; E11.22 Type 2 diabetes mellitus with diabetic chronic kidney disease; N18.30 Chronic kidney disease, stage 3 unspecified; I12.9 Hypertensive chronic kidney disease with stage 1 through stage 4 chronic kidney disease, or unspecified chronic kidney disease; Z79.51 Long term (current) use of inhaled steroids; Z79.899 Other long term (current) drug therapy; Z88.1 Allergy status to other antibiotic agents; Z88.8 Allergy status to other drugs, medicaments and biological substances; Z79.82 Long term (current) use of aspirin; Z79.4 Long term (current) use of insulin; Z87.19 Personal history of other diseases of the digestive system; Z68.36 Body mass index [BMI] 36.0-36.9, adult; Z98.49 Cataract extraction status, unspecified eye; Z90.49 Acquired absence of other specified parts of digestive tract
CPT/HCPCS: 01210-QZ; 36415; 72170; 72170-26; 73080-26-LT; 73080-LT; 73502-26-LT; 73502-LT; 80048; 82947; 85025; 85027; 94640; 96374; 97110-GP; 97161-GP; 97165-GO; 97530-GP; 99222; 99231; 99232; 99239; 99285; 99285-25; A9270-GY; C1776; J0665; J0690; J1815; J1885; J2704; J3010; J7030

== ENCOUNTER 2024-08-09 07:13 | Inpatient (IN) | payer MEDICARE, OTHER ==
[2024-08-09] MEDS ORDERED: Propofol 200 MG/20 ML SDV ONE ×2 (08:32→12:21)
[2024-08-09] MEDS: fentaNYL 50 MCG/ML SDV IVPUSH ONE (10:31)
[2024-08-09] MEDS ORDERED: Acetaminophen/HYDROcodone 325-5 MG Tab PO PRN ×2 (12:41→18:00)
[2024-08-09] MEDS ORDERED: Polyethylene Glycol 3350 Powder 17 GM Packet PO PRN (12:49)
[2024-08-09] MEDS ORDERED: Albuterol/Ipratropium 3.0-0.5 MG/3 ML Neb Soln INH PRN (12:49)
[2024-08-09] MEDS ORDERED: Albuterol 6.7 GM Inhaler INH PRN (12:49)
[2024-08-09] MEDS ORDERED: Nystatin Susp 100,000 Unit/ML 60 ML Bottle PO PRN (12:49)
[2024-08-09] MEDS ORDERED: Factor IX Complex Human 500 UNIT VIAL IVPUSH ONE (15:01)
[2024-08-09] MEDS: Acetaminophen 500 MG Tab PO SCH (15:28)
[2024-08-09] MEDS ORDERED: Insulin Lispro 100 Unit/ML 3 ML KwikPen SUBCUT SCH (16:00)
[2024-08-09] MEDS ORDERED: Nystatin Topical Powder 15 GM Bottle TOP PRN (16:48)
[2024-08-09] MEDS: traMADol 50 MG Tab PO PRN (17:06)
[2024-08-09] MEDS: Insulin Lispro 100 Unit/ML 3 ML KwikPen SUBCUT SCH (17:13)
[2024-08-09] MEDS: traZODone 50 MG Tab PO SCH (20:18)
[2024-08-09] MEDS: Docusate Sodium 100 MG Cap PO SCH (20:19)
[2024-08-09] MEDS: Cyclobenzaprine 10 MG Tab PO SCH (20:19)
[2024-08-09] MEDS: atorvaSTATin 10 MG Tab PO SCH (20:19)
[2024-08-10] MEDS: Formoterol/Mometasone 100-5 MCG 8.8 GM Inhaler IH SCH (07:00)
[2024-08-10] MEDS: Tiotropium Bromide 4 GM Inhalation Spray (2.5mcg/1 dose; 10 doses) INH SCH (07:01)
[2024-08-10] MEDS: Levothyroxine 25 MCG Tab PO SCH (07:54)
[2024-08-10] MEDS: Levothyroxine 100 MCG Tab PO SCH (07:54)
[2024-08-10] MEDS: Aspirin 81 MG Tab.Chew PO SCH (08:09)
[2024-08-10] MEDS: DULoxetine 30 MG Cap PO SCH (08:09)
[2024-08-10] MEDS: glipiZIDE 5 MG Tab.ER PO SCH (08:10)
[2024-08-10] MEDS: Empagliflozin 25 MG Tab PO SCH (08:10)
[2024-08-10] MEDS ORDERED: Non-Formulary Medication 1 Each (Fluticasone/Umeclidin/Vilanter [Trelegy Ellipta 100-62.5- INH SCH (09:00)
[2024-08-11 12:09] VITALS: BP 112/62; PULSE 79
== END 2024-08-11 13:13 | disposition home or self-care (01) | DRG 561 ==
LOC: JP.ED 07:13 → JP.MS 12:41
PROVIDERS: ADMIT Specialist; ATTEND Specialist
PROC: 0QS7XZZ Reposition Left Upper Femur, External Approach (ICD-10-PCS; principal; 2024-08-09)
DX: T84.021A Dislocation of internal left hip prosthesis, initial encounter (principal); E78.00 Pure hypercholesterolemia, unspecified; J44.89 Other specified chronic obstructive pulmonary disease; I10 Essential (primary) hypertension; J45.909 Unspecified asthma, uncomplicated; Z68.35 Body mass index [BMI] 35.0-35.9, adult; J44.9 Chronic obstructive pulmonary disease, unspecified; M19.90 Unspecified osteoarthritis, unspecified site; E11.9 Type 2 diabetes mellitus without complications; E86.0 Dehydration; E03.9 Hypothyroidism, unspecified; E66.9 Obesity, unspecified; Z98.49 Cataract extraction status, unspecified eye; Z90.49 Acquired absence of other specified parts of digestive tract; Z88.5 Allergy status to narcotic agent; Z88.8 Allergy status to other drugs, medicaments and biological substances; X58.XXXA Exposure to other specified factors, initial encounter; Z79.82 Long term (current) use of aspirin; Z79.4 Long term (current) use of insulin; Z79.899 Other long term (current) drug therapy; Z91.040 Latex allergy status; Z88.0 Allergy status to penicillin
CPT/HCPCS: 73501-26-LT; 73501-LT; 73502-26-LT; 73502-LT; 82947; 94640; 96374; 97161-GP; 97165-GO; 97530-GP; 97535-GO; 99155; 99282; 99285-25; A9270-GY; J1815; J2704; J3010

== ENCOUNTER 2024-09-05 09:58 | Inpatient (IN) | payer MEDICARE, OTHER ==
[2024-09-05] MEDS: fentaNYL 50 MCG/ML SDV IVPUSH ONE (10:25)
[2024-09-05] MEDS ORDERED: Propofol 200 MG/20 ML SDV ONE (11:35)
[2024-09-05] MEDS ORDERED: LORazepam 2 MG/ML SDV IVPUSH PRN (14:41)
[2024-09-05] MEDS ORDERED: Acetaminophen 325 MG Tab PO PRN (14:41)
[2024-09-05] MEDS ORDERED: Ondansetron 4 MG/2 ML SDV IV PRN (14:41)
[2024-09-05] MEDS ORDERED: Morphine 2 MG/ML SYRINGE IVPUSH PRN (14:41)
[2024-09-05] MEDS ORDERED: Magnesium Hydroxide 400 MG/5 ML Susp 30 ML Cup PO PRN (14:41)
[2024-09-05] MEDS ORDERED: Ondansetron 4 MG Tab.DIS PO PRN (14:41)
[2024-09-05] MEDS ORDERED: hydrALAZINE 20 MG/ML SDV IVPUSH PRN (14:49)
[2024-09-05] MEDS ORDERED: traMADol 50 MG Tab PO PRN (14:49)
[2024-09-05] MEDS ORDERED: Polyethylene Glycol 3350 Powder 17 GM Packet PO PRN (14:49)
[2024-09-05] MEDS ORDERED: guaiFENesin 100 MG/5 ML Soln 10 ML UD Cup PO PRN (14:49)
[2024-09-05] MEDS ORDERED: Insulin Lispro 100 Unit/ML 3 ML KwikPen SUBCUT SCH (15:00)
[2024-09-05] MEDS: Albuterol/Ipratropium 3.0-0.5 MG/3 ML Neb Soln NEB SCH (15:14)
[2024-09-05 15:42] LABS: HEMOGLOBIN A1C 7.4 % (4.5-6.2)
[2024-09-05] MEDS: Insulin Lispro 100 Unit/ML 3 ML KwikPen SUBCUT SCH (17:03)
[2024-09-05] MEDS: Cyclobenzaprine 10 MG Tab PO SCH (21:00)
[2024-09-05] MEDS: traZODone 50 MG Tab PO SCH (21:00)
[2024-09-05] MEDS: atorvaSTATin 10 MG Tab PO SCH (21:00)
[2024-09-05] MEDS: Docusate Sodium 100 MG Cap PO SCH (21:00)
[2024-09-06 05:57] LABS: HEMATOCRIT 43.2 % (34.3-46.0); HEMOGLOBIN 13.7 g/dL (11.2-15.5); MEAN CORPUSCULAR HEMOGLOBIN 29.9 pg (31.6-35.5); MEAN CORPUSCULAR HGB CONC 31.7 g/dL (31.6-35.5); MEAN CORPUSCULAR VOLUME 94.3 fL (81.4-99.0); RED BLOOD CELL COUNT 4.58 M/uL (3.77-5.24); WHITE BLOOD CELL COUNT,WBC 5.6 K/uL (3.2-11.0)
[2024-09-06 06:15] LABS: A/G RATIO 0.9 (1.2-2.2); ALANINE AMINOTRANSFERASE,ALT 13 U/L (12-78); ALBUMIN 2.9 g/dL (3.4-5.0); ALKALINE PHOSPHATASE 90 U/L (46-116); ANION GAP 8.2 mmol/L (5.0-14.0); ASPARTATE AMNIOTRANSFERASE,AST 11 U/L (15-37); BILIRUBIN TOTAL 0.5 mg/dL (0.2-1.0); BLOOD UREA NITROGEN,BUN 18 mg/dL (7-18); CALCIUM 8.7 mg/dL (8.5-10.1); CARBON DIOXIDE,CO2 27 mmol/L (21-32); CHLORIDE,CL 105 mmol/L (100-108); CREATININE 1.1 mg/dL (0.6-1.0); ESTIMATED GFR 51 mL/min (>60); GLUCOSE RANDOM 204 mg/dL (74-106); POTASSIUM,K 4.5 mmol/L (3.6-5.2); PROTEIN TOTAL,TP 6.1 g/dL (6.4-8.2); SODIUM,NA 140 mmol/L (140-148)
[2024-09-06] MEDS: Levothyroxine 100 MCG Tab PO SCH (07:14)
[2024-09-06] MEDS: Levothyroxine 25 MCG Tab PO SCH (07:14)
[2024-09-06] MEDS: Acetaminophen/HYDROcodone 325-5 MG Tab PO PRN (07:22)
[2024-09-06] MEDS: Formoterol/Mometasone 100-5 MCG 8.8 GM Inhaler IH SCH (07:29)
[2024-09-06] MEDS: Tiotropium Bromide 4 GM Inhalation Spray (2.5mcg/1 dose; 10 doses) INH SCH (07:30)
[2024-09-06] MEDS: Empagliflozin 25 MG Tab PO SCH (08:35)
[2024-09-06] MEDS: DULoxetine 30 MG Cap PO SCH (08:35)
[2024-09-06] MEDS: glipiZIDE 5 MG Tab.ER PO SCH (08:35)
[2024-09-06] MEDS ORDERED: Non-Formulary Medication 1 Each (Fluticasone/Umeclidin/Vilanter [Trelegy Ellipta 100-62.5- INH SCH (09:00)
[2024-09-07] MEDS ORDERED: Midazolam 1 MG/ML 2 ML SDV ONE (08:35)
[2024-09-07] MEDS ORDERED: fentaNYL 100 MCG/2 ML SDV ONE ×2 (08:35→13:50)
[2024-09-07] MEDS ORDERED: Propofol 200 MG/20 ML SDV ONE ×2 (08:36→13:28)
[2024-09-07] MEDS ORDERED: Bupivacaine 0.5% 50 ML MDV ONE (10:05)
[2024-09-07] MEDS: Tranexamic Acid 1,000 MG in Sodium Chloride 0.9% 50 ML IV ONE (12:50)
[2024-09-07] MEDS: ceFAZolin 2 GM in Premix Bag 1 BAG IV ONE (13:05)
[2024-09-07] MEDS ORDERED: Lactated Ringers 1,000 ML ONE (13:41)
[2024-09-08 05:58] LABS: HEMATOCRIT 39.3 % (34.3-46.0); HEMOGLOBIN 12.5 g/dL (11.2-15.5); MEAN CORPUSCULAR HEMOGLOBIN 30.2 pg (31.6-35.5); MEAN CORPUSCULAR HGB CONC 31.8 g/dL (31.6-35.5); MEAN CORPUSCULAR VOLUME 94.9 fL (81.4-99.0); RED BLOOD CELL COUNT 4.14 M/uL (3.77-5.24); WHITE BLOOD CELL COUNT,WBC 8.4 K/uL (3.2-11.0)
[2024-09-08 06:16] LABS: CALCIUM 8.8 mg/dL (8.5-10.1); EST CRCL DRUG DOSING (CG) 40.38 mL/min; POTASSIUM,K 4.9 mmol/L (3.6-5.2)
[2024-09-08 06:24] LABS: ANION GAP 15.9 mmol/L (5.0-14.0)
[2024-09-08] MEDS: Aspirin 325 MG Tab.EC PO SCH (08:52)
[2024-09-08] MEDS: ceFAZolin 2 GM in Premix Bag 1 BAG IV SCH (09:57)
[2024-09-08] MEDS: Sennosides/Docusate Sodium 50-8.6 MG Tab PO PRN (20:15)
[2024-09-08] MEDS: Cyclobenzaprine 5 MG Tab PO SCH (20:16)
[2024-09-09 05:49] VITALS: BP 129/58; PULSE 79
[2024-09-09] MEDS ORDERED: Acetaminophen 500 MG Tab PO SCH (14:00)
== END 2024-09-09 10:10 | DRG 466 ==
LOC: JP.ED 09:58 → JP.MS 12:27 → OBSVTOIN 09-06 09:48
PROVIDERS: ADMIT Hospitalist; ATTEND Internal Medicine
PROC: 0SPB09Z Removal of Liner from Left Hip Joint, Open Approach (ICD-10-PCS; 2024-09-07)
PROC: 0SUE09Z Supplement Left Hip Joint, Acetabular Surface with Liner, Open Approach (ICD-10-PCS; principal; 2024-09-07 09:45)
DX: S73.005A Unspecified dislocation of left hip, initial encounter (principal); J96.00 Acute respiratory failure, unspecified whether with hypoxia or hypercapnia; W18.30XA Fall on same level, unspecified, initial encounter; S73.005D Unspecified dislocation of left hip, subsequent encounter; J44.9 Chronic obstructive pulmonary disease, unspecified; I10 Essential (primary) hypertension; F32.A Depression, unspecified; H26.9 Unspecified cataract; H54.7 Unspecified visual loss; I25.10 Atherosclerotic heart disease of native coronary artery without angina pectoris; E78.00 Pure hypercholesterolemia, unspecified; E11.9 Type 2 diabetes mellitus without complications; J44.89 Other specified chronic obstructive pulmonary disease; K59.09 Other constipation; E03.9 Hypothyroidism, unspecified; E66.9 Obesity, unspecified; M19.90 Unspecified osteoarthritis, unspecified site; Z98.49 Cataract extraction status, unspecified eye; Z90.49 Acquired absence of other specified parts of digestive tract; Z98.890 Other specified postprocedural states; Z87.81 Personal history of (healed) traumatic fracture; Z91.81 History of falling; Z88.0 Allergy status to penicillin; Z88.8 Allergy status to other drugs, medicaments and biological substances; Y93.9 Activity, unspecified; Y92.099 Unspecified place in other non-institutional residence as the place of occurrence of the external cause; Z88.6 Allergy status to analgesic agent; Z88.1 Allergy status to other antibiotic agents; Z91.040 Latex allergy status; Z79.51 Long term (current) use of inhaled steroids; Z87.19 Personal history of other diseases of the digestive system; Z79.02 Long term (current) use of antithrombotics/antiplatelets; Z79.1 Long term (current) use of non-steroidal anti-inflammatories (NSAID); Z79.899 Other long term (current) drug therapy; Z79.4 Long term (current) use of insulin; Z68.36 Body mass index [BMI] 36.0-36.9, adult; W19.XXXA Unspecified fall, initial encounter; Y92.129 Unspecified place in nursing home as the place of occurrence of the external cause
CPT/HCPCS: 27252; 36415 ×2; 73501 ×2; 73502 ×2; 80053; 82947 ×3; 83036; 85027; 94640 ×5; 99156; 99222; 99283; A9270 ×17; J1815; J2704; J3010; 01214-QZ; 27265; 72170; 72170-26; 80048; 85018; 96374; 97161-GP; 99232; 99239; 99285-25; C1713; G0378; J0665; J0690; J2250; J7120

== ENCOUNTER 2025-02-03 10:13 | Emergency (ER) | payer MEDICARE, OTHER ==
[2025-02-03 12:03] LABS: BASOPHILS ABSOLUTE AUTO 0.05 K/uL (0.00-0.10); BASOPHILS PERCENT AUTO 0.6 % (0.1-1.3); EOSINOPHILS ABSOLUTE AUTO 0.12 K/uL (0.00-0.40); EOSINOPHILS PERCENT AUTO 1.4 % (0.0-5.4); IMMATURE GRAN ABSOLUTE AUTO 0.05 K/uL (0.00-0.23); IMMATURE GRAN PERCENT AUTO 0.6 % (0.0-0.7); LYMPHOCYTES ABSOLUTE AUTO 1.22 K/uL (0.8-3.3); LYMPHOCYTES PERCENT AUTO 14.5 % (11.4-47.7); MONOCYTES ABSOLUTE AUTO 1.01 K/uL (0.20-0.90); MONOCYTES PERCENT AUTO 12.0 % (3.3-12.6); NEUTROPHILS ABSOLUTE AUTO 5.94 K/uL (1.0-7.6); NEUTROPHILS PERCENT AUTO 70.9 % (40.0-78.1); PLATELET COUNT,PLT 300 K/uL (130-375); RED BLOOD CELL COUNT 5.63 M/uL (3.77-5.24); WHITE BLOOD CELL COUNT,WBC 8.4 K/uL (3.2-11.0)
[2025-02-03] MEDS ORDERED: Sodium Chloride 0.9% 10 ML Syringe FLUSH PRN (12:10)
[2025-02-03 12:26] LABS: BLOOD UREA NITROGEN,BUN 19 mg/dL (7-18); CARBON DIOXIDE,CO2 30 mmol/L (21-32); CHLORIDE,CL 104 mmol/L (100-108); CREATININE 1.1 mg/dL (0.6-1.0); EST CRCL DRUG DOSING (CG) 38.19 mL/min; ESTIMATED GFR 51 mL/min (>60); GLUCOSE RANDOM 196 mg/dL (74-106); POTASSIUM,K 4.6 mmol/L (3.6-5.2); PROTEIN TOTAL,TP 7.4 g/dL (6.4-8.2); SODIUM,NA 141 mmol/L (140-148)
[2025-02-03 12:27] LABS: A/G RATIO 0.9 (1.2-2.2); ALANINE AMINOTRANSFERASE,ALT 13 U/L (12-78); ASPARTATE AMNIOTRANSFERASE,AST 12 U/L (15-37); BILIRUBIN TOTAL 0.7 mg/dL (0.2-1.0)
[2025-02-03 16:26] VITALS: BP 140/77; PULSE 72
== END 2025-02-03 17:28 | disposition home or self-care (01) ==
LOC: JP.ED 10:13
DX: I63.89 Other cerebral infarction (principal); E86.0 Dehydration; I25.10 Atherosclerotic heart disease of native coronary artery without angina pectoris; I12.9 Hypertensive chronic kidney disease with stage 1 through stage 4 chronic kidney disease, or unspecified chronic kidney disease; N18.30 Chronic kidney disease, stage 3 unspecified; E78.00 Pure hypercholesterolemia, unspecified; J44.89 Other specified chronic obstructive pulmonary disease; M19.90 Unspecified osteoarthritis, unspecified site; E11.22 Type 2 diabetes mellitus with diabetic chronic kidney disease; E03.9 Hypothyroidism, unspecified; E66.9 Obesity, unspecified; Z68.34 Body mass index [BMI] 34.0-34.9, adult; Z90.49 Acquired absence of other specified parts of digestive tract; Z88.0 Allergy status to penicillin; Z88.8 Allergy status to other drugs, medicaments and biological substances; Z91.040 Latex allergy status; Z79.82 Long term (current) use of aspirin; Z79.4 Long term (current) use of insulin; Z79.890 Hormone replacement therapy; Z79.899 Other long term (current) drug therapy
CPT/HCPCS: 36415; 70450; 71045; 80053; 85025; 93005; 96360; 99285; A9270; J7030